=== PATIENT | female | born 1940 | race Caucasian/White ===

== ENCOUNTER → 2018-07-26 10:59 | Outpatient (CLI) | payer MEDICARE, BC, SELFPAY | PROVIDERS: Family Provider Internal Medicine; PCP Internal Medicine; Visit Provider Internal Medicine | DX: Z12.31 Encounter for screening mammogram for malignant neoplasm of breast (principal); Z78.0 Asymptomatic menopausal state; M85.80 Other specified disorders of bone density and structure, unspecified site; Z80.3 Family history of malignant neoplasm of breast | CPT/HCPCS: 77063; 77067; 77080 ==

== ENCOUNTER → 2019-07-30 10:52 | Outpatient (CLI) | payer MEDICARE, BC, SELFPAY ==
--- NOTE | 2019-07-30 10:59 | BI_ITS ---
MAMMOGRAPHY - BILATERAL SCREENING REASON FOR EXAM: Female, 78 years old. Routine annual screening examination. PERTINENT HISTORY: Aunt with breast cancer. TECHNIQUE: Digital bilateral breast francine (3D mammographic acquisition) in the CC and MLO projections. 2-D mediolateral oblique (MLO) and craniocaudad (CC) views of both breasts were obtained. CAD: Full Field Digital Mammography with Computer Added Detection was performed. COMPARISON: Comparison is made with prior study dated July 26, 2018 and July 21, 2017. FINDINGS: Breast Composition: The breasts are heterogeneously dense, which may obscure small masses. There are no dominant masses or suspicious calcifications. Stable small bilateral axillary lymph nodes. No other significant abnormalities are identified. There has been no significant change since the prior study. BI/SCREEN MAMM (CAD) W/FRANCINE BILAT IMPRESSION: Stable bilateral screening mammogram. Yearly follow-up mammogram recommended. (A) ASSESSMENT CATEGORY: BIRADS Category 2: Benign. A letter regarding these results will be sent to the patient by the facility within 30 days. Approximately 10% of breast cancers are not detected by mammography. A normal mammogram should not delay biopsy of a clinically suspicious abnormality. [id number] Electronically Signed: Chauncey Robertson, at 12:32 EDT , Service support ,
== END ==
PROVIDERS: Family Provider Internal Medicine; PCP Internal Medicine; Referring Provider Internal Medicine; Visit Provider Internal Medicine
DX: Z12.31 Encounter for screening mammogram for malignant neoplasm of breast (principal); Z80.3 Family history of malignant neoplasm of breast
CPT/HCPCS: 77063; 77067

== ENCOUNTER → 2020-08-04 10:53 | Outpatient (CLI) | payer MEDICARE, BC, SELFPAY ==
--- NOTE | 2020-08-04 10:56 | BI_ITS ---
MAMMOGRAPHY - BILATERAL SCREENING REASON FOR EXAM: Female, 79 years old. Routine annual screening examination. PERTINENT HISTORY: Aunt with breast cancer. TECHNIQUE: Digital bilateral breast francine (3D mammographic acquisition) in the CC and MLO projections. 2-D mediolateral oblique (MLO) and craniocaudad (CC) views of both breasts were obtained. CAD: Full Field Digital Mammography with Computer Added Detection was performed. COMPARISON: Comparison is made with prior examination of 07/30/2019 and 07/26/2018. FINDINGS: Breast Composition: The breasts are heterogeneously dense, which may obscure small masses. There are no dominant masses or suspicious calcifications. Stable benign-appearing bilateral axillary lymph nodes. No other significant abnormalities are identified. There has been no significant change since the prior study. BI/SCREEN MAMM (CAD) W/FRANCINE BILAT IMPRESSION: Stable bilateral screening mammogram. Yearly follow-up mammogram recommended. (A) ASSESSMENT CATEGORY: BIRADS Category 2: Benign. A letter regarding these results will be sent to the patient by the facility within 30 days. Approximately 10% of breast cancers are not detected by mammography. A normal mammogram should not delay biopsy of a clinically suspicious abnormality. [id number] Electronically Signed: Chauncey Robertson, at 12:29 EDT , Service support ,
== END ==
PROVIDERS: PCP Internal Medicine; Referring Provider Clinical Nurse Specialist; Visit Provider Clinical Nurse Specialist
DX: Z12.31 Encounter for screening mammogram for malignant neoplasm of breast (principal); Z80.3 Family history of malignant neoplasm of breast
CPT/HCPCS: 77063; 77067

== ENCOUNTER → 2021-08-13 14:54 | Outpatient (CLI) | payer MEDICARE, BC, SELFPAY ==
--- NOTE | 2021-08-13 14:58 | BI_ITS ---
MAMMOGRAPHY - BILATERAL SCREENING REASON FOR EXAM: Female, 80 years old. Routine annual screening examination. PERTINENT HISTORY: Aunt with breast cancer. TECHNIQUE: Digital bilateral breast francine (3D mammographic acquisition) in the CC and MLO projections. 2-D mediolateral oblique (MLO) and craniocaudad (CC) views of both breasts were obtained. CAD: Full Field Digital Mammography with Computer Added Detection was performed. COMPARISON: Comparison is made with prior study 08/04/2020 and 07/30/2019. FINDINGS: Breast Composition: The breasts are heterogeneously dense, which may obscure small masses. There are no dominant masses or suspicious calcifications. Stable small benign-appearing bilateral axillary lymph nodes. No other significant abnormalities are identified. There has been no significant change since the prior study. BI/SCRN MAMM (CAD)W/FRANCINE BILAT IMPRESSION: Stable bilateral screening mammogram. Yearly follow-up mammogram recommended. (A) ASSESSMENT CATEGORY: BIRADS Category 2: Benign. A letter regarding these results will be sent to the patient by the facility within 30 days. Approximately 10% of breast cancers are not detected by mammography. A normal mammogram should not delay biopsy of a clinically suspicious abnormality. [id number] Electronically Signed: Chauncey Robertson MD at 8:49 EDT , Service support ,
--- NOTE | 2021-08-13 15:06 | BD_ITS ---
STUDY: DUAL ENERGY X-RAY ABSORPTIOMETRY / DXA REASON FOR EXAM: Female, 80 years old. M85.89. The patient is postmenopausal. TECHNIQUE: Bone Mineral Density (BMD) measurements of lumbar spine and bilateral hips were obtained. COMPARISON: Comparison is made with prior study 07/26/2018. FINDINGS: Lumbar Spine (L1-L4): g/cm2 (0.913) / T-score (-1.2) / Z-score (1.4) Findings are suggestive of osteopenia with a low fracture risk. Left Femur Total: g/cm2 (0.902) / T-score (-0.3) / Z-score (1.7) Left Femoral Neck: g/cm2 (0.728) / T-score (-1.1) / Z-score (1.2) Right Femur Total: g/cm2 (0.885) / T-score (-0.5) / Z-score (1.5) Right Femoral Neck: g/cm2 (0.68) / T-score (-1.5) / Z-score (0.7) The T-Scores on the most recent prior examination were: Lumbar Spine (L1-L4): There has been worsening of bone density since the previous examination. Left Femur Total: which represents a worsening of 5.7%. Right Femur Total: which represents a worsening of 0.1%. BD/Dexa Bone Density Study IMPRESSION: The patient is considered osteopenic as outlined below according to World Miller Organization (WHO) criteria with a moderate fracture risk. There has been worsening of bone density since the previous examination. Reference Information: The T-score is the number of standard deviations above or below the standard which is normal for young adults at their peak bone mineral density. The World Health Organization (WHO) interprets the T-scores as follows: Above -1 Normal bone density Between -1 and -2.5 Osteopenia Equal to / or below -2.5 Osteoporosis As a practical clinical guideline, osteopenia may be graded as follows: Mild -1 through -1.5 Moderate -1.6 through -2.0 Severe -2.1 through -2.4 The Z-score is the number of standard deviations above or below age-matched controls. A Z-score of less than -1.5 would be considered abnormal. References: 1. NIH Osteoporosis and Related Bone Diseases www osteo.org 2. International Society for Clinical Densitometry www iscd.org 3. National Osteoporosis Foundation www nof.org Electronically Signed: Chauncey Robertson MD at 14:40 EDT , Service support ,
== END ==
PROVIDERS: PCP Internal Medicine; Referring Provider Internal Medicine; Visit Provider Internal Medicine
DX: Z12.31 Encounter for screening mammogram for malignant neoplasm of breast (principal); M85.80 Other specified disorders of bone density and structure, unspecified site; M85.88 Other specified disorders of bone density and structure, other site; Z78.0 Asymptomatic menopausal state; Z80.3 Family history of malignant neoplasm of breast
CPT/HCPCS: 77063; 77067; 77080

== ENCOUNTER → 2022-08-16 | Outpatient (CLI) | payer MEDICARE, BC, SELFPAY ==
--- NOTE | 2022-08-16 12:07 | BI_ITS ---
MAMMOGRAPHY - BILATERAL SCREENING REASON FOR EXAM: Female, 81 years old. Routine annual screening examination. PERTINENT HISTORY: Aunt with breast cancer. TECHNIQUE: Digital bilateral breast francine (3D mammographic acquisition) in the CC and MLO projections. 2-D mediolateral oblique (MLO) and craniocaudad (CC) views of both breasts were obtained. CAD: Full Field Digital Mammography with Computer Added Detection was performed. COMPARISON: Comparison is made with prior study dated 08/13/2021 and 08/04/2020. FINDINGS: Breast Composition: The breasts are heterogeneously dense, which may obscure small masses. There are no dominant masses or suspicious calcifications. Stable small benign-appearing bilateral axillary lymph nodes. No other significant abnormalities are identified. There has been no significant change since the prior study. BI/SCRN MAMM (CAD)W/FRANCINE BILAT IMPRESSION: Stable bilateral screening mammogram. Yearly follow-up mammogram recommended. (A) ASSESSMENT CATEGORY: BIRADS Category 2: Benign. A letter regarding these results will be sent to the patient by the facility within 30 days. Approximately 10% of breast cancers are not detected by mammography. A normal mammogram should not delay biopsy of a clinically suspicious abnormality. [id number] Electronically Signed: Chauncey Robertson MD at 13:39 EDT ,
== END | disposition home or self-care (01) ==
LOC: OPBI 12:04
PROVIDERS: PCP Internal Medicine; Visit Provider Internal Medicine
DX: Z12.31 Encounter for screening mammogram for malignant neoplasm of breast (principal)
CPT/HCPCS: 77063; 77067

== ENCOUNTER 2023-06-13 05:49 | Day surgery (SDC) | payer MEDICARE, BC, SELFPAY ==
[2023-06-13 06:34] VITALS: BP 125/71; PULSE 90; RESP 16; TEMP 37.2; O2SAT 98; BMI 25.2
--- NOTE | 2023-06-13 06:52 | PCM.HP.BLA ---
History and Physical Date of Admission: 06/13/23 Intake Vital Signs 05/26/2308:55 05/31/2308:27 Height 5 ft 4.5 in 5 ft 5 in Weight: 154 lb 6 oz BMI 25.7 BP 134/77 H Blood Pressure Location Rt brachial Position Sitting Respiration 18 Pulse 102 H Pulse Source Monitor Temp 97.3 F L Temp Source Temporal Pulse Oximetry (%) 97 Oxygen Delivery Method room air Intake Visit Reasons: PORT PLACEMENT Chief Complaint: Port Placement Nursing Assoc Required: No Accompanied by: Is patient in pain?: No Allergies No Known Allergies Allergy (Verified 05/31/23 09:08) Medications albuterol sulfate 90 mcg/actuation aerosol inhaler 1 inh inhalation ONCE 04/27/23 [History Confirmed 05/31/23] atorvastatin 20 mg tablet 20 mg PO DAILY 04/27/23 [History Confirmed 05/31/23] cholecalciferol (vitamin D3) 25 mcg (1,000 unit) capsule 25 mcg PO DAILY 04/27/23 [History Confirmed 05/31/23] cyclosporine 0.05 % eye drops in a dropperette 1 drp ophthalmic (eye) Q12H 04/27/23 [History Confirmed 05/31/23] levothyroxine 112 mcg capsule 112 mcg PO DAILY 04/27/23 [History Confirmed 05/31/23] sertraline 50 mg tablet 50 mg PO DAILY 04/27/23 [History Confirmed 05/31/23] ondansetron HCl 4 mg tablet 4 mg PO Q6H 05/05/23 [History Confirmed 05/31/23] acetaminophen 500 mg tablet (Tylenol Extra Strength) 500 mg PO Q6H PRN 05/26/23 [History Confirmed 05/31/23] apixaban 2.5 mg tablet (Eliquis) 2.5 mg PO BID 05/26/23 [History Confirmed 05/31/23] cannabidiol 100 mg/mL oral solution 750 mg PO BID PRN 05/26/23 [History Confirmed 05/31/23] docusate sodium 100 mg capsule (Colace) 100 mg PO BID 05/26/23 [History Confirmed 05/31/23] polyethylene glycol 3350 17 gram oral powder packet (Miralax) 17 g PO DAILY 05/26/23 [History Confirmed 05/31/23] lidocaine-prilocaine 2.5 %-2.5 % topical cream 1 applic topical ONCE PRN port access 30 days #30 grams 05/31/23 [Rx Confirmed 05/31/23] [facility], [facility] Medical History (Updated 05/31/23 @ 11:[address] Pravin Vuong MD) Anxiety state Asthma Basal cell carcinoma Benign neoplasm of colon Chronic kidney disease, stage 3 unspecified Decreased appetite Encounter for education External hemorrhoids Hemorrhage of gastrointestinal tract, unspecified Hypercholesteremia Hypothyroidism IBS (irritable bowel syndrome) Internal hemorrhoids Surgical History H/O total hysterectomy S/P appendectomy Family History Mother Asthma Parkinsons diseaseFather Prostate cancer Social History Smoking Status: Never smoker alcohol intake: current alcohol intake frequency: a few times a week substance use type: does not use HPI HPI HPI: 82-year-old female here for ovarian cancer need for vascular access port. She had surgery she was placed on Eliquis after surgery for prophylaxis. This Eliquis is ending on the . ROS General General: Yes weight change and fatigue; No appetite, colon cancer, breast cancer or weakness HEENT HEENT: Yes swollen glands; No difficulty swallowing, eye injury, eye surgery or hoarseness Endo Endocrine: Yes thyroid disease; No diabetes mellitus, thyroid cancer, Hair loss, heat intolerance or cold intolerance Skin Skin: No rash or changing moles Breast Breast: No left breast lump, right breast lump, nipple discharge, breast pain, abnormal mammogram, abnormal US or breast enlargement Musc Musculoskeletal: No back problems, arthritis, rheumatoid arthritis, gout or joint pain Cardio Cardiovascular: No murmur, pacemaker, heart disease, atrial fibrillation, high blood pressure, heart attack, heart stent, palpitations, shortness of breat with exertion or chest pain Psych Psychiatric: No depression, anxiety or hearing voices Resp Respiratory: No shortness of breath, No sleep apnea, No cough, No COPD, Yes asthma, No emphysema and No wheezing Gastro Gastrointestinal: No abdominal pain, No nausea or vomiting, No diarrhea, No constipation, No blood in stool, No acid reflux, Yes hemorrhoids, No ulcers, No gallbladder problem and No black,tarry stools Guy Hematologic: Yes blood thinners, No blood disorders, No bleeding, No anemia and No blood clots Neuro Neurologic: No system reviewed and no additional complaints, except as documented, No as per HPI, No abnormal gait, No abnormal hearing, No abnormal movements, No abnormal speech, No behavioral changes, No burning sensations, No confusion, No convulsions, No disequilibrium, No dizziness, No localized weakness, No frequent falls, No headache(s), No lack of coordination, No loss of vision, No memory loss, No numbness, No other visual disturbances, No radicular pain, No restless legs, No sensory deficit, No syncope, No tingling, No tremor(s), No weakness and No other Exam Const General: cooperative Orientation: alert and oriented x3 HENMT Head: normal to inspection Neck Neck: normal visual inspection and full ROM Chest Chest palpation & inspection: normal inspection of the chest Resp Effort & Inspection: normal respiratory effort Auscultation: clear to auscultation bilaterally Cardio Rate: regular rate Rhythm: regular rhythm GI Inspection: non-distended Palpation: soft and nontender Skin General: no rashes or lesions noted Neuro General: patient alert and patient oriented x3 Extrem General: full ROM Psych Appearance: grossly normal Mental Status: mental status grossly normal Assessment and Plan Assessment and Plan (1) 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 Discussed stage IV disease, treatment with chemotherapy Taxol plus carboplatin weekly x24 weeks/6 cycles. 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 Pt has had a hysterectomy on 11/07/1982. Could be Ovarian cancer. Biopsy of L supraclavicular nodes showed metastatic adenocarcinoma. [id number] on 05/05/2023. (5) Encounter for insertion of venous access port: Status: Acute Plan I discussed right chest port placement with the patient in detail. I discussed the risks including but not limited to bleeding, infection, pneumothorax, line infection or DVT. The patient is stopping her Eliquis on 06/08. I am out most of next week. She will receive her first chemotherapy treatment by peripheral access and I will have her scheduled for June 13 replacement and I will leave the port accessed for her next treatment on the . Pravin Vuong MD Pager: [facility] [address] [place] [address], [address] [place] [address] Office: I have examined the patient and the H&P has been reviewed. There are no clinical changes since date of exam.
[2023-06-13] MEDS: Lactated Ringers 1,000 ML 15 ML IV (06:53)
[2023-06-13] MEDS: Cefazolin 2 GM in 0.9% Normal Saline 100 ML IV (07:28)
[2023-06-13] MEDS: Bupivacaine Mpf 0.5% 30 ML VIAL (07:41)
[2023-06-13] MEDS: Lidocaine 1% /Epi 1:100 (20ml) 20 ML Vial (07:41)
[2023-06-13 08:05] VITALS: BP 123/61; BP 125/71; PULSE 83; RESP 18; TEMP 36.6; O2SAT 100
[2023-06-13 08:10] VITALS: BP 120/60; BP 125/71; PULSE 82; RESP 18; O2SAT 95
--- NOTE | 2023-06-13 08:10 | OP.PCM_ITS ---
Report of Operation Date of Procedure: 06/13/23 Pre-Operative Diagnosis: Ovarian cancer, need for vascular access for chemother apy Post-Operative Diagnosis: Same Surgery/Procedure Performed:: Ultrasound and fluoroscopy guided right chest port placement utilizing right IJ Type of Anesthesia: Local MAC Specimen's removed: None Estimated Blood Loss (mL): 5 Description of Procedure: After obtaining informed consent patient was brought back to the operating room MAC anesthesia was induced and the right chest and neck were prepped in normal sterile fashion. Ultrasound was used to evaluate both IJs and the right IJ was selected. Next, using a needle, the right IJ was accessed and a guidewire was passed on into the superior vena cava under fluoroscopy guidance. A small incision was made over the puncture site and the dilator introducer was placed over the guidewire. Next this was capped and the pocket was made for the port. 1% lidocaine with epinephrine was injected in the proposed port site. An incision was made with scalpel. Electrocautery was used to make a pocket under the skin and subcutaneous tissue. Hemostasis was obtained. Next, the catheter was tunneled up to the neck incision site and placed through the introducer. The peel-away introducer was removed and the position of the catheter was confirmed on fluoroscopy. Next, the catheter was trimmed and attached to the port with the locking device. Interrupted 2-0 Vicryl sutures were used to anchor the port to the chest wall and then the port was placed inside the pocket. The pocket was then flushed with saline and the port irrigated with saline. There was good blood return and the port flushed easily. Next, heparin was injected into the port. The skin was closed with subcutaneous interrupted 3-0 Vicryl sutures. A single 3-0 Vicryl sutures placed under the skin at the neck incision site. Steri-Strips were placed as well as op sites. Patient tolerated procedure well, was taken to PACU in stable condition. Chest x-ray will be obtained. Grafts/Implants Used: 8 [place] [employer] Admit VTE Documentation VTE Mechan Device Prophylaxis: SCD's
--- NOTE | 2023-06-13 08:12 | DCINST_ITS ---
Discharge Instructions Diet Discharge Diet: Light diet - advance as tolerated Activity Discharge Activity: Return to Normal Activity and May Shower (with your bandage in place in 1 to 2 days after surgery. DO NOT SHOWER WHEN YOUR PORT IS ACCESSED.) Dressing / Incision Call your doctor if your incision/area has: Continuous Slow Oozing, Sudden Increased Bleeding, Increased Pain/ Swelling, Increased Redness and Foul Smelling Discharge Call your doctor if you observe: Fever of 101 or Higher Remove Dressing in: 2 days Cleanse incision/area with: Soap & Water Follow Up Care Please Follow Up With: Pravin Vuong MD When: As needed at [phone] Test Results: Test results from this visit will be discussed in further detail at your follow- up appointment, if applicable. Discharge Plan Admission Attending Provider: Pravin Vuong Primary Care Provider: Bere Mancini Discharge Orders/Prescriptions Prescriptions: No Action albuterol sulfate 90 mcg/actuation HFA aerosol inhaler 1 inh inhalation ONCE atorvastatin 20 mg tablet 20 mg PO DAILY cyclosporine 0.05 % dropperette 1 drp ophthalmic (eye) Q12H levothyroxine 112 mcg capsule 112 mcg PO DAILY sertraline 50 mg tablet 50 mg PO DAILY ondansetron HCl 4 mg tablet 4 mg PO Q6H docusate sodium [Colace] 100 mg capsule 100 mg PO BID polyethylene glycol 3350 [Miralax] 17 gram powder in packet 17 g PO DAILY lidocaine-prilocaine 2.5-2.5 % cream 1 applic topical ONCE PRN (Reason: port access) 30 Days Qty: 30 2RF Other Ambulatory Orders: Basic Metabolic Profile (BMP) (Routine) Timeframe: 20230607 Facility: [facility] - Location: Laboratory, [facility] Ordered By: Dr. Pravin Vuong CBC W/Diff, Automated (Routine) Timeframe: 20230607 Facility: [facility] - Location: Laboratory, [facility] Ordered By: Dr. Pravin Vuong Referrals / Follow Up: Bere Mancini MD [Primary Care Provider] - Disposition Disposition (needs filled in before D/C Order can be placed): Home, Self Care
[2023-06-13 08:16] VITALS: BP 120/60; BP 125/71; PULSE 80; RESP 16; O2SAT 95
[2023-06-13 08:22] VITALS: BP 119/63; BP 125/71; PULSE 88; RESP 16; TEMP 37; O2SAT 95
--- NOTE | 2023-06-13 08:25 | RAD_ITS ---
INDICATION: line placement -- in pacu EXAMINATION/TECHNIQUE: X-RAY - XR Chest 1 View COMPARISON: FINDINGS: LINES/DEVICES: A right-sided MediPort is noted with tip projecting in the SVC. LUNGS: There is a small left effusion and questionable airspace disease at the left lung base. Otherwise no evidence for consolidation, edema or effusion. No pneumothorax. MEDIASTINUM AND CARDIOVASCULAR STRUCTURES: Cardiac silhouette not enlarged. Central airways and mediastinal contour are unremarkable. BONES AND SOFT TISSUES: Unremarkable. RAD/CXR for Line Placement IMPRESSION: A right-sided MediPort is noted with tip projecting in the SVC. There is a small left effusion and questionable airspace disease at the left lung base. Electronically Signed: Rylan Victor, at 8:35 EDT ,
[2023-06-13 09:02] VITALS: BP 125/71
== END 2023-06-13 09:09 | disposition home or self-care (01) ==
LOC: SDC 05:50 → AC 05:50
PROVIDERS: PCP Internal Medicine; Referring Provider Surgery; Visit Provider Surgery
PROC: (CPT 36561; principal; 2023-06-13 07:15)
DX: Z45.2 Encounter for adjustment and management of vascular access device (principal); C77.2 Secondary and unspecified malignant neoplasm of intra-abdominal lymph nodes; C77.0 Secondary and unspecified malignant neoplasm of lymph nodes of head, face and neck; C56.2 Malignant neoplasm of left ovary; N18.30 Chronic kidney disease, stage 3 unspecified; E78.00 Pure hypercholesterolemia, unspecified; K58.9 Irritable bowel syndrome, unspecified; F41.1 Generalized anxiety disorder; N89.8 Other specified noninflammatory disorders of vagina; Z79.01 Long term (current) use of anticoagulants; Z79.890 Hormone replacement therapy; Z79.899 Other long term (current) drug therapy
CPT/HCPCS: 36561; 00532; 71045; 77001; J7120; C1788; J2405

== ENCOUNTER → 2023-07-13 | Outpatient (CLI) | payer MEDICARE, BC, SELFPAY ==
--- NOTE | 2023-07-13 10:50 | CT_ITS ---
EXAM: CT NECK WITH INTRAVENOUS CONTRAST CLINICAL INDICATION: ASSESS TREATMENT RESPONSE TECHNIQUE: Helically acquired images were obtained of the neck with intravenous contrast. This CT exam was performed using one or more of the following dose reduction techniques: automated exposure control, adjustment of the mA and/or kV according to patient size, and/or use of iterative reconstruction technique. CONTRAST: IV 100mL Isovue-300 COMPARISON: No relevant prior studies available. FINDINGS: NASOPHARYNX: Normal. SUPRAHYOID NECK: Normal. Oropharynx, oral cavity, parapharyngeal space and retropharyngeal space are unremarkable. INFRAHYOID NECK: Normal. The larynx, hypopharynx and supraglottis are unremarkable. SUBMANDIBULAR/PAROTID GLANDS: Salivary glands are normal in size. THYROID: No thyroid tissue identified. BONES/JOINTS: No suspicious lytic or blastic abnormality. SOFT TISSUES: Normal. VASCULATURE: No acute findings. LYMPH NODES: Enlarged left-sided cervical lymph nodes noted involving levels 4 and 5 measuring up to 3.5 cm in diameter consistent with metastatic disease. LUNG APICES: Unremarkable as visualized. TUBES, LINES AND DEVICES: Right IJ infusion catheter in place. CT/Soft Tissue Neck WITH Contrast IMPRESSION: Enlarged left level 4 and 5 cervical lymph nodes consistent with metastatic disease. Electronically Signed: Donta Luevano MD at 13:30 EDT ,
--- NOTE | 2023-07-13 10:50 | CT_ITS ---
EXAM: CT CHEST, ABDOMEN AND PELVIS WITH INTRAVENOUS CONTRAST CLINICAL INDICATION: ASSESS TREATMENT RESPONSE TECHNIQUE: Helically acquired images were obtained of the chest, abdomen and pelvis with intravenous contrast. This CT exam was performed using one or more of the following dose reduction techniques: automated exposure control, adjustment of the mA and/or kV according to patient size, and/or use of iterative reconstruction technique. CONTRAST: IV 100mL Isovue-300 COMPARISON: PET CT scan 05/10/2023, CT abdomen and pelvis 04/07/2023 FINDINGS: CHEST: LUNGS AND PLEURAL SPACES: Normal. No mass. No consolidation or edema. No pleural effusion or thickening. No pneumothorax. HEART: Normal. Heart size is normal. No pericardial effusion. MEDIASTINUM: Normal. No mediastinal or hilar adenopathy. Esophagus is unremarkable. No hiatal hernia. THYROID: Normal. No thyroid nodules or calcification. ABDOMEN: LIVER: Normal. Homogeneous. No focal mass. PANCREAS: Normal. No focal cystic or solid mass. SPLEEN: Normal. Normal size without focal cystic or solid mass. ADRENALS: Normal. No nodules. KIDNEYS AND URETERS: Normal. Normal renal size and position. No hydronephrosis. STOMACH AND BOWEL: Interval partial resection of the sigmoid colon. No evidence of recurrent tumor at the surgical site. PELVIS: APPENDIX: No evidence of acute appendicitis. BLADDER: Normal. REPRODUCTIVE: Uterus is absent. CHEST, ABDOMEN and PELVIS: INTRAPERITONEAL SPACE: Normal. No ascites or other fluid collection. No free air. BONES/JOINTS: No suspicious lytic or blastic abnormality. L1 vertebral body lesion consistent with hemangioma. SOFT TISSUES: Normal. No discrete abdominal or pelvic wall hernia. VASCULATURE: Normal. Aorta is non-dilated. No aortic dissection. No obvious central pulmonary embolism although this study was not performed with the pulmonary embolism protocol. LYMPH NODES: Partially visualized lobulated 3.8 cm mass within the left side of the neck. Additional 3.1 x 1.8 cm abnormal lymph node posterior to the left clavicle consistent with metastatic disease. Multiple enlarged retroperitoneal lymph nodes noted within the upper abdomen adjacent to the inferior vena cava and IVC and extending into the small bowel mesentery. Additional necrotic lymphadenopathy along the right external iliac region measuring 5 cm in maximum diameter. Lymphadenopathy increased in size from prior study. TUBES, LINES AND DEVICES: Right internal jugular central venous catheter tip in the distal superior vena cava. CT/CT Chest, Abd, Pel w/Contrast IMPRESSION: 1. Enlarged level 5 cervical lymph nodes and enlarging retroperitoneal and pelvic lymph nodes consistent with metastatic disease. 2. Interval resection of the mass involving the sigmoid:. 3. No acute cardiopulmonary abnormality. 4. No evidence of metastases. Electronically Signed: Donta Luevano MD at 12:13 EDT ,
[2023-07-13] MEDS: 0.9 % NaCl (Sterile) Posiflush 10 mL IV (11:00)
== END | disposition home or self-care (01) ==
LOC: CT 10:37
PROVIDERS: PCP Internal Medicine; Referring Provider Internal Medicine Medical Oncology; Visit Provider Internal Medicine Medical Oncology
DX: R59.0 Localized enlarged lymph nodes (principal)
CPT/HCPCS: 70491; 71260; 74177; Q9967; A4216

== ENCOUNTER → 2023-10-05 | Outpatient (CLI) | payer MEDICARE, BC, SELFPAY ==
--- NOTE | 2023-10-05 14:16 | CT_ITS ---
EXAM: CT CHEST, ABDOMEN AND PELVIS WITH INTRAVENOUS CONTRAST CLINICAL INDICATION: ASSESSING TREATMENT RESPONSE, IV ONLY TECHNIQUE: Helically acquired images were obtained of the chest, abdomen and pelvis with intravenous contrast. This CT exam was performed using one or more of the following dose reduction techniques: automated exposure control, adjustment of the mA and/or kV according to patient size, and/or use of iterative reconstruction technique. CONTRAST: 100 cc of Isovue-300 IV. RADIATION DOSE: CTDIvol = 10.46 mGy, DLP = 1145.01 mGy-cm COMPARISON: 07/13/2023. FINDINGS: CHEST: LUNGS AND PLEURAL SPACES: Unremarkable. No mass. No consolidation or edema. No pleural effusion or thickening. No pneumothorax. HEART: Unremarkable. Heart size is normal. No pericardial effusion. MEDIASTINUM: Unremarkable. No mediastinal or hilar adenopathy. Esophagus is unremarkable. No hiatal hernia. THYROID: Unremarkable. No thyroid lesions. ABDOMEN: LIVER: Unremarkable. Homogeneous. No focal mass. GALLBLADDER AND BILE DUCTS: Unremarkable. No calcified gallstones. No gallbladder distention or wall edema. No intra- or extrahepatic biliary ductal dilation. PANCREAS: Unremarkable. No focal cystic or solid mass. SPLEEN: Unremarkable. Normal size without focal cystic or solid mass. ADRENALS: Unremarkable. No nodules. KIDNEYS AND URETERS: Unremarkable. Normal renal size and position. No hydronephrosis. STOMACH AND BOWEL: Partial sigmoidectomy. No stomach or bowel distention. PELVIS: APPENDIX: No evidence of acute appendicitis. BLADDER: Unremarkable. REPRODUCTIVE: Unremarkable as visualized. No mass. CHEST, ABDOMEN and PELVIS: INTRAPERITONEAL SPACE: Unremarkable. No ascites or other fluid collection. No free air. BONES/JOINTS: Unremarkable. No suspicious lytic or blastic abnormality. SOFT TISSUES: Unremarkable. No discrete abdominal or pelvic wall hernia. VASCULATURE: Unremarkable. Aorta is non-dilated. No aortic dissection. No obvious central pulmonary embolism although this study was not performed with the pulmonary embolism protocol. LYMPH NODES: Decreased size of the previously noted retrocrural lymph nodes. The largest now measures 5 mm. Marked decrease in the previously noted retroperitoneal adenopathy. The largest now measures 1.4 cm. Marked decrease in size of the previously noted left-sided level IV and V lymph nodes. Previously noted right external iliac lymph nodes appear diffusely necrotic and are moderately smaller compared with the previous exam. CT/CT Chest, Abd, Pel w/Contrast IMPRESSION: 1. Marked decrease in size of the previously noted left-sided level IV and V lymph nodes. See the report of the CT scan of the neck. 2. Significant decreased size in the previously noted retroperitoneal, retrocrural, and right external iliac adenopathy. 3. Previously noted right external iliac lymph nodes appear diffusely necrotic and are moderately smaller compared with the previous exam. 4. Partial sigmoidectomy. Electronically Signed: Bassam Reeves MD at 7:06 EST ,
--- NOTE | 2023-10-05 14:16 | CT_ITS ---
EXAM: CT NECK WITH INTRAVENOUS CONTRAST CLINICAL INDICATION: ASSESSING TREATMENT RESPONSE TECHNIQUE: Helically acquired images were obtained of the neck with intravenous contrast. This CT exam was performed using one or more of the following dose reduction techniques: automated exposure control, adjustment of the mA and/or kV according to patient size, and/or use of iterative reconstruction technique. CONTRAST: 100 cc of Isovue-300 IV. RADIATION DOSE: CTDIvol = 10.46 mGy, DLP = 1145.01 mGy-cm COMPARISON: 07/13/2023. FINDINGS: NASOPHARYNX: Unremarkable. SUPRAHYOID NECK: Unremarkable. Oropharynx, oral cavity, parapharyngeal space and retropharyngeal space are unremarkable. INFRAHYOID NECK: Unremarkable. The larynx, hypopharynx and supraglottis are unremarkable. SUBMANDIBULAR/PAROTID GLANDS: Unremarkable. Glands are normal in size. THYROID: Unremarkable. No enlarged or calcified nodules. BONES/JOINTS: No acute fracture. SOFT TISSUES: Unremarkable. VASCULATURE: No acute findings. LYMPH NODES: Previously noted multiple enlarged left-sided level IV and V lymph nodes are now all decreased in size with the largest measuring less than 1 cm. There is a new level 5 lymph node just below the level of the hyoid bone best seen on image 45 of series 3 that measures 1.1 cm maximum dimension with low density centrally. LUNG APICES: Unremarkable as visualized. CT/Soft Tissue Neck WITH Contrast IMPRESSION: Significant decrease in size of all of the previously noted left-sided level IV and V lymph nodes the largest now measuring less than a centimeter. There is a new 1.1 cm level V lymph node on the left at about the level of the hyoid bone that measures 1.1 cm and demonstrates low-density centrally that may be due to necrosis. Electronically Signed: Bassam Reeves MD at 6:56 EST ,
[2023-10-05] MEDS: 0.9 % NaCl (Sterile) Posiflush 10 mL IV (14:40)
== END | disposition home or self-care (01) ==
LOC: CT 14:14
PROVIDERS: PCP Internal Medicine; Referring Provider Internal Medicine Medical Oncology; Visit Provider Internal Medicine Medical Oncology
DX: C77.2 Secondary and unspecified malignant neoplasm of intra-abdominal lymph nodes (principal); C56.2 Malignant neoplasm of left ovary
CPT/HCPCS: 70491; 71260; 74177; Q9967; A4216

== ENCOUNTER 2023-10-23 09:20 | Emergency (ER) | payer MEDICARE, BC, SELFPAY ==
[2023-10-23 09:21] VITALS: BP 130/82; PULSE 104; RESP 16; TEMP 36.4; O2SAT 97; BMI 24.7
--- NOTE | 2023-10-23 10:08 | EDS_ITS ---
HPI HPI - GI History of Present Illness Chief Complaint: Abd Pain Informant: patient Abdominal Pain/Flank Pain Onset: Yesterday Context: Gradual Onset Timing: Continuous Quality: Sharp Location: LUQ Worsened by: Nothing Relieved by: - (Oxycodone) Nausea/Vomiting/Emesis GI Symptom: Positive for Nausea and Vomiting Quality: Positive for Nonbilious; Negative for Blood streaks, Coffee ground or Hematemesis Diarrhea/Melena/Hematochezia GI Symptom: Negative for Diarrhea, Melena or Hematochezia Associated Symptoms Associated Symptoms: Negative for Dysuria, Frequency or Hematuria Narrative Narrative: Presents with abdominal pain that began yesterday. Patient states it is gr adually gotten worse. Patient states it is mainly over the left upper abdomen. Patient describes her pain as sharp. Patient states she took 1 dose of oxycodone 5 mg last evening which seemed to help with the pain. Patient admits to some nausea and vomiting. Patient denies any hematemesis or coffee-ground emesis. Patient denies any diarrhea, melena, or hematochezia. Patient denies any dysuria, frequency, or hematuria. Patient admits to some subjective chills but denies any fevers. Patient has a history of ovarian cancer and was referred to the emergency department for possible bowel obstruction. [facility] Medical History Anxiety state Asthma Basal cell carcinoma Benign neoplasm of colon Cancer Constipation Decreased appetite Dehydration Drug induced neutropenia Encounter for chemotherapy management Encounter for education External hemorrhoids Hemorrhage of gastrointestinal tract, unspecified High cholesterol Hypercholesteremia Hypothyroidism IBS (irritable bowel syndrome) Internal hemorrhoids Non-smoker Thyroid disease Wears glasses Home Medications albuterol sulfate 90 mcg/actuation aerosol inhaler 1 inh inhalation ONCE 04/27/23 [History Last Taken Unknown] atorvastatin 20 mg tablet 20 mg PO DAILY 04/27/23 [History Last Taken Unknown] cyclosporine 0.05 % eye drops in a dropperette 1 drp ophthalmic (eye) Q12H 04/27/23 [History Last Taken Unknown] levothyroxine 112 mcg capsule 112 mcg PO DAILY 04/27/23 [History Last Taken Unknown] ondansetron HCl 4 mg tablet 4 mg PO Q6H 05/05/23 [History Last Taken Unknown] docusate sodium 100 mg capsule (Colace) 100 mg PO BID 05/26/23 [History Last Taken Unknown] polyethylene glycol 3350 17 gram oral powder packet (Miralax) 17 g PO DAILY 05/26/23 [History Last Taken Unknown] lidocaine-prilocaine 2.5 %-2.5 % topical cream 1 applic topical ONCE PRN port access 30 days #30 grams 05/31/23 [Rx Last Taken Unknown] sertraline 50 mg tablet 50 mg PO DAILY #30 tabs 10/17/23 [Rx Last Taken Unknown] Allergy/AdvReac Type Severity Reaction Status Date / Time No Known Allergies Allergy Verified 10/12/23 09:32 Family History Mother Asthma Parkinsons disease Father Prostate cancer Surgical History H/O total hysterectomy History of bowel resection History of cardiac catheterization S/P appendectomy Social History Smoking Status: Never smoker alcohol intake: current alcohol intake frequency: a few times a week substance use type: does not use ROS ROS ED Constitutional Constitutional ED: Reports chills and subjective; Denies fever(s) Eyes Eyes: Denies blurry vision or change in vision ENT ENT ED: Denies rhinorrhea or sore throat Cardiovascular Cardiovascular: Denies chest pain or palpitations Respiratory/Chest Respiratory/Chest: Denies cough or dyspnea Gastrointestinal Gastrointestinal: Reports abdominal pain, nausea and vomiting; Denies diarrhea or melena Genitourinary Genitourinary ED: Denies dysuria or hematuria Musculoskeletal Musculoskeletal: Denies back pain or neck pain Integumentary Denies abscess or rash Neurologic Neurologic: Denies headache(s) or weakness Allergic/Immunologic Allergic/Immunologic ED: Denies mouth swelling or urticaria EXAM Physical Exam Const Vital Signs: 10/23/23 09:21 Temperature 97.6 F L Temperature Source Temporal Pulse Rate 104 H Respiratory Rate 16 Blood Pressure 130/82 H Blood Pressure Mean 98 Pulse Ox 97 Oxygen Delivery Method Room Air Positive well nourished and well developed General Appearance ED: well developed and NAD HEENT Reports moist mucous membranes Neck supple and no JVD Resp normal respiratory effort and clear to auscultation bilaterally Cardio regular rate and regular rhythm GI Palpation: soft and tender epigastric and LUQ; Negative for guarding or rebound tenderness present Neuro CN's II-XII intact bilaterally, moves all extremities and no sensory deficits noted Sensorium / Orientation: alert Motor Exam: strength 5/5 throughout Psych mental status grossly normal and thought process normal MDM MDM MDM Narrative Medical decision making narrative: Differential diagnosis includes bowel obstruction, perforation, peptic ulcer disease, gastritis, pancreatitis, cholecystitis, cholelithiasis, pyelonephritis, and urinary tract infection. CBC will be obtained to assess for leukocytosis and anemia. Comprehensive metabolic profile will be obtained to assess for hepatic function, renal function, and electrolyte abnormality. Urinalysis will be obtained to assess for urinary tract infection and hematuria. CT scan of the abdomen pelvis will be obtained to assess for bowel obstruction, perforation, and pancreatitis. Lipase will be obtained to assess for pancreatitis. Lab Data Attestation: I reviewed the patient's lab results. Lab results narrative: CBC was reviewed. White blood cell count was elevated at 48.7. Hemoglobin was 7.9 and hematocrit was 23.8. Platelets were 232. Comprehensive metabolic profile was reviewed. BUN was slightly elevated at 27. The remainder was within normal limits. Lipase was reviewed and was normal at 22. Urinalysis was reviewed. There is no evidence of urinary tract infection or hematuria. Labs: Laboratory Results - last 24 hr 10/23/23 10/23/23 10:34 11:02 WBC 48.7 H* RBC 2.44 L Hgb 7.9 L Hct 23.8 L MCV 97.5 MCH 32.4 H MCHC 33.2 D RDW Std Deviation 69.1 H RDW Coeff of Camryn 19.8 H Plt Count 232 MPV 9.3 Neut % (Auto) Not Reportable Absolute Neuts (auto) 47.8 H Absolute Lymphs (auto) 0.49 L Total Counted 100 Neutrophils % (Manual) 98 H Lymphocytes % (Manual) 1 L Metamyelocytes % 1 Diff Path Review May foll Platelet Estimate ADEQUATE Anisocytosis 2+ Microcytosis 1+ Macrocytosis 1+ Sodium 138 Potassium 3.8 Chloride 105 Carbon Dioxide 27.0 Anion Gap 6 BUN 27 H Creatinine 0.83 Estim Creat Clear Calc 48.64 Est GFR (MDRD) Af Amer 85 Est GFR (MDRD) Non-Af 71 BUN/Creatinine Ratio 32.6 H Glucose 99 Calcium 8.7 Total Bilirubin 0.50 Direct Bilirubin 0.16 AST 16 ALT 27 Alkaline Phosphatase 194 H Total Protein 7.0 Albumin 3.1 L Globulin 3.9 Lipase 22 Urine Color Yellow Urine Clarity Clear Urine pH 8.0 Ur Specific [place] 1.010 Urine Protein 15 H Urine Glucose (UA) Normal Urine Ketones Negative Urine Occult Blood 10 H Urine Nitrite Negative Urine Bilirubin Negative Urine Urobilinogen Normal Ur Leukocyte Esterase Negative Urine RBC 0 SEEN Urine WBC 0 SEEN Ur Squamous Epith Cells 0 SEEN Urine Bacteria 0 SEEN Urine Mucus 0 SEEN Radiography Diagnostic Testing: Clinical Impression(s) from Imaging Studies Abdomen/Pelvis CT 10/23/23 10:28 IMPRESSION: Stable post surgical changes from prior sigmoid colon resection. Stable periaortic and pelvic lymphadenopathy. No bowel obstruction or inflammation. Constipation. Small amount of free fluid. No free air or fluid collection Electronically Signed: Kaleb Hoffman MD at 13:07 EST , CT scan of the abdomen and pelvis was obtained. There is no evidence of bowel obstruction. There is no free air or free fluid. There is constipation. This was interpreted by the radiologist and was also independently reviewed by myself. Treatment and Re-Evaluation :: Patient was given IV fluids, morphine, and Zofran. Patient was advised of her findings. Case was discussed with Sandra Koo from [place] [facility]. She stated that the patient received an injection recently which would cause her white blood cell count to be increased. She recommended starting the patient on Reglan. She also recommended continuing her laxatives as needed. Patient was instructed to follow-up with oncology in 3 to 5 days. Patient understood and was agreeable with the plan. All questions were answered. Discharge Plan Triage Chief Complaint: Abd Pain ED Provider: Layton Rodriguez Dx/Rx/DC Orders Clinical Impression: Constipation, Ovarian cancer on left Instructions: ED Constipation (Adult) Prescriptions: No Action albuterol sulfate 90 mcg/actuation HFA aerosol inhaler 1 inh inhalation ONCE atorvastatin 20 mg tablet 20 mg PO DAILY cyclosporine 0.05 % dropperette 1 drp ophthalmic (eye) Q12H levothyroxine 112 mcg capsule 112 mcg PO DAILY ondansetron HCl 4 mg tablet 4 mg PO Q6H docusate sodium [Colace] 100 mg capsule 100 mg PO BID polyethylene glycol 3350 [Miralax] 17 gram powder in packet 17 g PO DAILY lidocaine-prilocaine 2.5-2.5 % cream 1 applic topical ONCE PRN (Reason: port access) 30 Days Qty: 30 2RF sertraline 50 mg tablet 50 mg PO DAILY Qty: 30 2RF Primary Care Provider: Vi Pelayo Referrals: Vi Pelayo MD [Primary Care Provider] - Perfecto Heath MD [Med Staff - Active Staff] - 3-5 Days Activity Restrictions/Additional Instructions: Since you are on sertraline, you cannot take the Reglan that was recommended. Continue your other laxatives as prescribed. Disposition Disposition: Home, Self Care
--- NOTE | 2023-10-23 10:28 | CT_ITS ---
STUDY: CT ABDOMEN AND PELVIS WITH CONTRAST REASON FOR EXAM: Female, 82 years old. Abdominal pain RADIATION DOSAGE (If Supplied By Facility): CTDIvol = ( 21 ) mGy, DLP = ( 990 ) mGycm TECHNIQUE: Transaxial images were obtained through the abdomen and pelvis with oral contrast. 100 ml of Isovue-370 contrast was administered. Sagittal and coronal images were reconstructed. Individualized dose optimization techniques were used for this CT. COMPARISON: Prior study dated: 10/05/2023 FINDINGS: LOWER THORAX: The visualized lung bases are clear. The visualized portions of the heart and pericardium are within normal limits. GALLBLADDER / BILE DUCTS: There are no calcified gallstones present. There is no intrahepatic biliary duct dilatation. The common bile duct is normal in caliber. There are no calcified ductal stones. LIVER: The liver is within normal limits. There are no suspicious hepatic lesions. SPLEEN: The spleen is normal in size. PANCREAS: The pancreas is within normal limits. ADRENAL GLANDS: The adrenal glands are within normal limits. KIDNEYS / BLADDER: There are no renal or ureteral stones. There is no hydronephrosis. There are no focal renal lesions. The urinary bladder is partially distended and appears grossly unremarkable. STOMACH / BOWEL: Normal visualized stomach. There is no bowel obstruction or inflammation. There is a large amount of stool in the colon, consistent with constipation. There are stable postsurgical changes from prior sigmoid colon resection. The appendix is not visualized, but there are no findings to suggest acute appendicitis. PERITONEUM/RETROPERITONEUM: There is a small amount of free fluid. There is no free air or fluid collection. There is no abnormal soft tissue mass identified. There is stable periaortic and pelvic lymphadenopathy. VESSELS: The aorta is normal in caliber. The IVC is unremarkable. BONES: There are no destructive osseous lesions. SOFT TISSUES: The visualized soft tissues are within normal limits. CT/Abdomen/Pelvis WITH Contrast IMPRESSION: Stable post surgical changes from prior sigmoid colon resection. Stable periaortic and pelvic lymphadenopathy. No bowel obstruction or inflammation. Constipation. Small amount of free fluid. No free air or fluid collection Electronically Signed: Kaleb Hoffman MD at 13:07 EST ,
[2023-10-23] MEDS: 0.9% Normal Saline (1000mL) 1,000 ML 1000 ML IV (10:43)
[2023-10-23 10:47] LABS: Hematocrit 23.8 % (37-47); Hemoglobin 7.9 g/dL (12.0-15.0); Mean Corp Hgb Conc 33.2 g/dL (32-36); Mean Corpuscular Hgb 32.4 pg (27.0-32.0); Mean Corpuscular Volume 97.5 fL (81-99); Mean Platelet Vol. 9.3 fl (6.2-12.0); POSITIVE COUNT YES; POSITIVE DIFFERENTIAL YES; POSITIVE MORPHOLOGY YES; Platelet Count 232 K/mm3 (150-450); RBC Distribution Width CV 19.8 % (11.6-14.6); RBC Distribution Width SD 69.1 fl (35.1-43.9); Red Blood Count 2.44 M/mm3 (4.2-5.4)
[2023-10-23 10:53] LABS: Differential Indicated MANUAL DIFF; White Blood Count 48.7 K/mm3 (4.4-11.0)
[2023-10-23 11:01] LABS: AST(SGOT) 16 U/L (15-37); Alanine Aminotransfer ALT/SGPT 27 U/L (13-56); Albumin, Serum 3.1 g/dL (3.2-5.0); Alkaline Phosphatase 194 U/L (45-117); Anion Gap 6 (5-15); BUN 27 mg/dL (7-18); BUN/Creat Ratio 32.6 RATIO (10-20); Bilirubin, Direct 0.16 mg/dL (0.00-0.30); Calcium,Total 8.7 mg/dL (8.5-10.1); Chloride 105 mmol/L (98-107); Creatinine, Serum 0.83 mg/dL (0.55-1.02); EST Glomerular Filtration Rate 71 mL/min (>60); Est Glom Filt Rate - Afr Amer 85 mL/min (>60); Estimated Creatinine Clearance 48.64 ml/min; Globulin 3.9 g/dL (2.2-4.2); Glucose 99 mg/dL (74-106); Lipase 22 U/L (13-75); Potassium 3.8 mmol/L (3.5-5.1); Sodium Level 138 mmol/L (136-145)
[2023-10-23 11:03] LABS: Anisocytosis 2+; Lymphocyte 1 % (19-41); Macrocytosis 1+; Metamyelocyte 1 % (0-1); Microcytosis 1+; Neutrophil-Segmented 98 % (47-70); Platelet Estimate ADEQUATE (ADEQ); Total Cells Counted 100 (MANUAL DIFF)
[2023-10-23 11:04] LABS: Absolute Lymphocyte Count 0.49 X10^3/uL (0.83-4.51); Absolute Neutrophil Count 47.8 X10^3/uL (2.0-7.7)
[2023-10-23 11:07] LABS: Bacteria 0 SEEN /hpf (None Seen); Mucous, Urine 0 SEEN /hpf (<or=2+); Red Blood Cells-Urine 0 SEEN /hpf (0-5); Squamous Epithelial Cells - UA 0 SEEN /hpf (5-10); White Blood Cells 0 SEEN /hpf (0-5)
[2023-10-23 11:09] LABS: Color, Urine Yellow (Yellow); Glucose, Dipstick Normal (Normal); Ketone-Dipstick Negative (Negative); Leukocyte Esterase-Dipstick Negative /ul (Negative); Nitrite-Dipstick Negative (Negative); Occult Blood-Urine 10 /ul (Negative); Protein-Dipstick 15 mg/dl (Negative); Urine Bilirubin Dipstick Negative (Negative); Urine Clarity Clear (Clear); Urine Urobilinogen Normal (Normal)
[2023-10-23 15:34] VITALS: BP 132/83; PULSE 78; RESP 18; O2SAT 98
[2023-10-24 13:42] LABS: Pathologist Review Reviewed
== END 2023-10-23 15:38 | disposition home or self-care (01) ==
PROVIDERS: Emergency Provider Emergency Medicine; PCP Internal Medicine; Visit Provider Emergency Medicine
DX: K59.00 Constipation, unspecified (principal); C56.2 Malignant neoplasm of left ovary; R10.12 Left upper quadrant pain; R11.2 Nausea with vomiting, unspecified; E78.00 Pure hypercholesterolemia, unspecified; E03.9 Hypothyroidism, unspecified; Z79.890 Hormone replacement therapy; Z79.899 Other long term (current) drug therapy
CPT/HCPCS: 36591; 74177; 80048; 80076; 81001; 83690; 85025; 96360; 96361; 99284; J7030; A4216; J2405

== ENCOUNTER → 2023-11-24 | Outpatient (CLI) | payer MEDICARE, BC, SELFPAY ==
--- NOTE | 2023-11-24 07:15 | CT_ITS ---
EXAM: CT NECK WITH INTRAVENOUS CONTRAST CLINICAL INDICATION: RESTAGING METASTATIC OVARIAN CA TECHNIQUE: Helically acquired images were obtained of the neck with intravenous contrast. This CT exam was performed using one or more of the following dose reduction techniques: automated exposure control, adjustment of the mA and/or kV according to patient size, and/or use of iterative reconstruction technique. CONTRAST: IV 100mL Isovue-370 COMPARISON: 10/05/2023 FINDINGS: NASOPHARYNX: Unremarkable. SUPRAHYOID NECK: Unremarkable. Oropharynx, oral cavity, parapharyngeal space and retropharyngeal space are unremarkable. INFRAHYOID NECK: Unremarkable. The larynx, hypopharynx and supraglottis are unremarkable. SUBMANDIBULAR/PAROTID GLANDS: Unremarkable. Glands are normal in size. THYROID: Unremarkable. No enlarged or calcified nodules. BONES/JOINTS: No acute fracture. SOFT TISSUES: Unremarkable. VASCULATURE: No acute findings. LYMPH NODES: Previously described level 5 lymph node lobe at the level of the hyoid bone on the left is not as well-defined on today''s exam. This node measures roughly 1.4 x 1.3 cm on today''s exam and extends to the skin surface. LUNG APICES: Unremarkable as visualized. CT/Soft Tissue Neck WITH Contrast IMPRESSION: Mild interval increase in size of a left-sided level 5 lymph node which is less well-defined on today''s exam. If indicated further evaluation with PET CT scan may be beneficial. Electronically Signed: Hipolito Murrieta MD at 16:58 EST ,
--- NOTE | 2023-11-24 07:15 | CT_ITS ---
STUDY: CT CHEST, ABDOMEN T PELVIS WITH CONTRAST REASON FOR EXAM: Female, 82 years old. RESTAGING-LEFT OVARIAN CA RADIATION DOSAGE (If Supplied By Facility): CTDIvol = ( 11.54 ) mGy, DLP = ( 1288.07 ) mGycm TECHNIQUE: Transaxial imaging was performed following intravenous administration of IV 100mL Isovue-370. Individualized dose optimization techniques were used for this CT. COMPARISON: October 23, 2023 FINDINGS: CHEST The lungs are normal. There is no demonstrated pleural abnormality. Normal heart and pericardium. Normal mediastinum. Normal hilar regions. Normal unenhanced pulmonary arteries. Minor atherosclerotic changes of the aorta without evidence for aneurysm Dorsal spine demonstrates moderate spondylosis ABDOMEN Normal liver. Normal gallbladder and extrahepatic biliary system. Normal spleen. Normal pancreas. Normal bilateral adrenal glands. Normal right kidney. Normal left kidney. Normal visualized stomach. Normal small intestine. Diffuse fecal retention noted within the colon.. No evidence for acute appendicitis Normal abdominal aorta. Normal inferior vena cava. There is a small periaortic node at the level of the left renal hilum demonstrating central low attenuation likely metastatic.. Normal abdominal wall. Normal osseous structures. PELVIS Normal urinary bladder. Postsurgical changes status post BETO/BSO Normal visualized small intestine. Postsurgical change status post prior colonic resection There is no pelvic fluid. There are enlarged right external iliac nodes measuring 2.44 x 2.03 cm and 2.16 x 2.07 cm demonstrating central low attenuation likely metastatic Normal visualized pelvic arteries. Normal abdominal wall. Lumbar spine demonstrates degenerative change CT/CT Chest, Abd, Pel w/Contrast IMPRESSION: No significant abnormalities within the thoracic cavity without evidence for metastatic disease. No evidence for hepatic metastases Possibly metastatic left periaortic and right external iliac adenopathy noted on prior exam. Status post BETO/BSO and resection of the sigmoid colon Electronically Signed: Juanpablo Alvarado MD at 21:16 EST ,
--- OUTSIDE RECORDS SUMMARY | 2023-11-24 07:27 | XMS RPT_ITS | CCD ---
Author Name Unknown Address [address] [place] [address] Organization [facility] Care Team Providers Care Condominium Manager Name Role Phone IRIS LACKEY Unavailable Unavailable LEVON LACKEYNETH Unavailable Unavailable LEVON LACKEYNETH Unavailable Unavailable IMCA Unavailable Unavailable IRIS LACKEY E Unavailable Unavailable IRIS LACKEY E Unavailable Unavailable Jonathan Vanegas MD Primary Care Provider Jonathan Vanegas MD Primary Care Provider GUILHERME FELDER, DR CASTILLO Primary Care Physician [phone] Bonifacio Higgins MD Unavailable [phone] GUILHERME FELDER, DR CASTILLO Primary Care Unavailable Slava PEDRO DO Attending Unavail able GUILHERME FELDER, DR CASTILLO Primary Care Unavailable Slava PEDRO DO Attending Unavail able GUILHERME FELDER, DR CASTILLO Primary Care Unavailable ADELA MARISCAL MD Consulting Unavailable Slava PEDRO DO Attending Unavail able CHERYL ANTONIO MD Consulting Unavailable Slava PEDRO DO Attending Unavail able GUILHERME FELDER, DR CASTILLO Primary Care Unavailable TALAMPAS, JONATHAN Jona Primary Care Unavailable TANG, JOLIE Referring Unavailable TALAMPAS, JONATHAN D Primary Care Unavailable TANG, JOLIE Referring Unavailable TANG, JOLIE Attending Unavailable TALAMPAS, JONATHAN D Primary Care Unavailable RENATO AYALA Attending Unavailable TALAMPAS, JONATHAN D Primary Care Unavailable TANG, JOLIE Referring Unavailable TALAMPAS, JONAHTAN D Primary Care Unavailable TALAMPAS, JONATHAN D Attending Unavailable TANG, JOLIE Referring Unavailable TALAMPAS, JONATHAN D Primary Care Unavailable TALAMPAS, JONATHAN D Primary Care Unavailable TALAMPAS, JONATHAN D Referring Unavailable TANG, JOLIE Referring Unavailable TALAMPAS, JONATHAN D Attending Unavailable TALAMPAS, JONATHAN D Primary Care Unavailable TANG, JOLIE Referring Unavailable TALAMPAS, JONATHAN D Primary Care Unavailable TALAMPAS, JONATHAN D Primary Care Unavailable TANG, JOLIE Referring Unavailable TALAMPAS, JONATHAN D Primary Care Unavailable TANG, JOLIE Referring Unavailable TALAMPAS, JONATHAN D Primary Care Unavailable TANG, JOLIE Referring Unavailable TALAMPAS, JONATHAN D Primary Care Unavailable TANG, JOLIE Referring Unavailable TANG, JOLIE Attending Unavailable TALAMPAS, JONATHAN D Primary Care Unavailable TANG, JOLIE Referring Unavailable BONIFACIO HIGGINS Attending Unavailable BONIFACIO HIGGINS Attending Unavailable PERFECTO HEATH. Referring Unavailable BONIFACIO HIGGINS Attending Unavailable BONIFACIO HIGGINS Admitting Unavailable Allergies Allergy Classification Reported Allergen(s) Allergy Type Date of Onset Reaction(s) Facility (19 sources) Cat; Translations: [CATS] Propensity to adverse reactions (disorder) 7 [facility] Repository (19 sources) Dog; Translations: [DOGS] Propensity to adverse reactions (disorder) 7 [facility] Repository (19 sources) Grass pollen; Translations: [GRASS POLLEN] Propensity to adverse reactions (disorder) 7 Unknown [facility] Repository (19 sources) House dust mite; Translations: [DUST MITES] Propensity to adverse reactions (disorder) 7 [facility] Repository (19 sources) mold extract; Translations: [MOLD] Drug Allergy 7 Unknown [facility] Repository (3 sources) OTHER; Translations: [OTHER] Propensity to adverse reactions (disorder) 7 [facility] Repository (16 sources) environmental [Other] Propensity to adverse reactions 7 [facility] Work Phone: (17 sources) House Dust Mite; Translations: [HOUSE DUST MITE] Drug Allergy 1 Unknown [facility] Work Phone: (9 sources) Cat Hair Extract Drug Allergy 7 [facility] (9 sources) Grass pollen Drug Allergy 7 [facility] (9 sources) House dust mite Propensity to adverse reactions 7 [facility] (9 sources) Dog Epithelium Drug Intolerance 7 [facility] Medications Current Medications Medication Drug Class(es) Dates Sig (Normalized) Sig (Original) 0.4 ML cyclosporine 0.5 MG/ML Ophthalmic Suspension [Restasis] (2 sources) Start: 04-19-2023 take 1 dose into the eye(s) twice daily Restasis 0.05% ophthalmic emulsion Dose = 1 drop(s), Eyes, both, BID, # 30 EA, 0 Refill(s) Start Date: 04/19/23 Status: Ordered acetaminophen 500 mg oral tablet (7 sources) Start: 05-16-2023 End: 05-26-2023 take 2 tablets by mouth every eight hours as needed for pain acetaminophen (Tylenol Extra Strength) 500 MG tablet Take 2 tablets (1,000 mg) by mouth every 8 hours as needed for mild pain (1-3) for up to 10 days. 60 tablet 0 05/16/2023 05/26/2023 Active Completed/Discontinued Medications Medication Drug Class(es) Dates Sig (Normalized) Sig (Original) atorvastatin 20 mg oral tablet (20 sources) HMG-CoA Reductase Inhibitor Start: 06-21-2022 End: 05-23-2023 take 1 tablet by mouth once daily atorvastatin (LIPITOR) 20 mg tablet Indications: Hypercholesteremia Take 1 tablet by mouth once daily. 90 tablet 3 06/21/2022 05/23/2023 Discontinued Problems Active Problems Problem Classification Problem Date Documented Da te Episodic/Chronic Abdominal pain (3 sources) Left upper quadrant pain; Translations: [Left upper quadrant pain] Onset: 04-07-2023 Episodic Anxiety disorders (19 sources) Anxiety state; Translations: [Generalized anxiety disorder] Onset: 05-12-2007 09-09-2016 Chronic Asthma (2 sources) Asthma 04-19-2023 Chronic Chronic kidney disease (12 sources) Chronic kidney disease stage 3; Translations: [Stage 3 chronic kidney disease, unspecified whether stage 3a or 3b CKD (HCC)] Onset: 04-04-2023 Chronic Chronic kidney disease (1 source) Chronic kidney disease; Translations: [Stage 3 chronic kidney disease, unspecified whether stage 3a or 3b CKD (HCC)] Onset: 04-04-2023 Coronary atherosclerosis and other heart disease (2 sources) 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; Translations: [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] Onset: 09-01-2017 Chronic Diseases of white blood cells (3 sources) Leukocytosis; Translations: [Elevated white blood cell count, unspecified] Onset: 04-04-2023 Chronic Disorders of lipid metabolism (20 sources) Hypercholesterolemia; Translations: [Pure hypercholesterolemia, unspecified] Onset: 11-17-2021 11-16-2021 Chronic Diverticulosis and diverticulitis (2 sources) Diverticulosis of colon 04-19-2023 Chronic Essential hypertension (1 source) Essential (primary) hypertension; Translations: [Essential (primary) hypertension] Onset: 09-01-2017 Chronic Fever of unknown origin (4 sources) Fever; Translations: [Fever, unspecified] Onset: 03-31-2023 Episodic Lymphadenitis (4 sources) Lymphadenopathy of head AND/OR neck; Translations: [Localized enlarged lymph nodes] Onset: 04-12-2023 04-19-2023 Episodic Malaise and fatigue (2 sources) Malaise; Translations: [Other malaise] Onset: 03-31-2023 Episodic Nausea and vomiting (4 sources) Nausea; Translations: [Nausea] Onset: 03-31-2023 Episodic Neoplasms of unspecified nature or uncertain behavior (1 source) Thrombocytosis; Translations: [Thrombocytosis] Onset: 04-04-2023 Chronic Neoplasms of unspecified nature or uncertain behavior (2 sources) Thrombocytosis; Translations: [Thrombocytosis] Episodic Nutritional deficiencies (2 sources) Vitamin D deficiency; Translations: [Vitamin D deficiency, unspecified] Onset: 04-04-2023 Chronic Nutritional deficiencies (1 source) Iron deficiency; Translations: [Iron deficiency] Onset: 04-04-2023 Episodic Other connective tissue disease (2 sources) Contracture of palmar fascia 04-19-2023 Episodic Other female genital disorders (2 sources) Rectovaginal fistula; 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] 05-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 Chronic Other female genital disorders (3 sources) Fistula of vagina to large intestine; 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] Onset: 05-09-2023 05-16-2023 Chronic Other female genital disorders (1 source) Fistula of vagina to large intestine; 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] Onset: 05-09-2023 Chronic Other gastrointestinal disorders (18 sources) Irritable bowel syndrome; Translations: [Irritable bowel syndrome without diarrhea] Onset: 05-12-2007 05-12-2007 Chronic Other gastrointestinal disorders (2 sources) Pelvic mass; Translations: [Intra-abdominal and pelvic swelling, mass and lump, unspecified site] 05-09-2023 Episodic Other liver diseases (2 sources) Alkaline phosphatase raised; Translations: [Abnormal levels of other serum enzymes] Episodic Other liver diseases (1 source) Abnormal levels of other serum enzymes; Translations: [Elevated alkaline phosphatase level] Onset: 04-05-2023 Episodic Other nervous system disorders (3 sources) Postoperative pain ; Translations: [Other acute postprocedural pain] Onset: 04-22-2023 Episodic Other screening for suspected conditions (not mental disorders or infectious disease) (15 sources) Radiology result abnormal; Translations: [Abnormal findings on diagnostic imaging of other specified body structures] Onset: 05-11-2023 05-09-2023 Chronic Other screening for suspected conditions (not mental disorders or infectious disease) (5 sources) Patient encounter status; Translations: [Encounter for screening mammogram for malignant neoplasm of breast] Onset: 04-01-2023 Episodic Other skin disorders (3 sources) Finding of neck region; Translations: [Localized swelling, mass and lump, neck] Episodic Other skin disorders (1 source) Localized swelling, mass and lump, neck; Translations: [Localized swelling, mass and lump, neck] Onset: 03-31-2023 Episodic Residual codes; unclassified (1 source) Postmenopausal state; Translations: [Asymptomatic menopausal state] Episodic Residual codes; unclassified (2 sources) Menopause present; Translations: [Asymptomatic menopausal state] Episodic Residual codes; unclassified (2 sources) Asymptomatic menopausal state; Translations: [Asymptomatic menopausal state] Onset: 04-04-2023 Episodic Residual codes; unclassified (1 source) Postoperative state; Translations: [Other specified postprocedural states] 05-25-2023 Episodic Thyroid disorders (20 sources) Hypothyroidism; Translations: [Hypothyroidism, unspecified] Onset: 05-12-2007 05-09-2018 Chronic Unclassified (1 source) Unknown / UNK(Unknown) Onset: 09-01-2017 Unclassified (2 sources) Basal cell carcinoma 04-20-2023 Past or Other Problems Problem Classification Problem Date Documented Da te Episodic/Chronic Diabetes mellitus without complication (1 source) Hyperglycemia, unspecified; Translations: [Hyperglycemia, unspecified] Onset: 7 Episodic Gastrointestinal hemorrhage (16 sources) Gastrointestinal hemorrhage; Translations: [Gastrointestinal hemorrhage, unspecified] Onset: 7 07-12-2007 Episodic Hemorrhoids (20 sources) Internal hemorrhoids; Translations: [Other hemorrhoids] Onset: 7 05-09-2018 Episodic Immunizations and screening for infectious disease (1 source) Encounter for screening for other viral diseases; Translations: [Need for hepatitis C screening test] Onset: 2 Episodic Nonspecific chest pain (1 source) Chest pain, unspecified; Translations: [Chest pain, unspecified] Onset: 7 Episodic Other and unspecified benign neoplasm (18 sources) Benign neoplasm of colon; Translations: [Benign neoplasm of colon, unspecified] Onset: 7 05-12-2007 Episodic Other gastrointestinal disorders (3 sources) Finding of abdominopelvic segment of trunk; Translations: [Intra-abdominal and pelvic swelling, mass and lump, unspecified site] Onset: 3 05-16-2023 Episodic Other gastrointestinal disorders (2 sources) Intra-abdominal and pelvic swelling, mass and lump, unspecified site; Translations: [Pelvic mass] Onset: 3 Episodic Other nervous system disorders (2 sources) Other acute postprocedural pain; Translations: [Other acute postprocedural pain] Onset: 3 Episodic Residual codes; unclassified (2 sources) Other specified postprocedural states; Translations: [Other specified postprocedural states] Onset: 3 Episodic Results Test Name Value Interpretation Reference Range Facil ity Vital Signs Date Time Vital Sign Value Performing Clinician Margy larson 05-25-2023 13:33-0400 Body height 165.1 cm Bonifacio Higgins MD Work Phone: [facility] 05-25-2023 13:33-0400 Body mass index (BMI) [Ratio] 25.79 kg/m2 Bonifacio Higgins MD Work Phone: [facility] 05-25-2023 13:33-0400 Body weight 70.31 kg Bonifacio Higgins MD Work Phone: [facility] 05-25-2023 13:33-0400 Diastolic blood pressure 70 mm[Hg] Bonifacio Higgins MD Work Phone: [facility] 05-25-2023 13:33-0400 Heart rate 101 /min Bonifacio Higgins MD Work Phone: [facility] 05-25-2023 13:33-0400 Systolic blood pressure 108 mm[Hg] Bonifacio Higgins MD Work Phone: [facility] 05-16-2023 06:10-0400 Body temperature 97.5 [degF] Bonifacio Higgins MD Work Phone: [facility] 05-16-2023 06:10-0400 Diastolic blood pressure 79 mm[Hg] Bonifacio Higgins MD Work Phone: [facility] 05-16-2023 06:10-0400 Heart rate 89 /min Bonifacio Higgins MD Work Phone: [facility] 05-16-2023 06:10-0400 Respiratory rate 18 /min Bonifacio Higgins MD Work Phone: [facility] 05-16-2023 06:10-0400 SaO2% (BldA) [Mass fraction] 93 % Bonifacio Higgins MD Work Phone: [facility] 05-16-2023 06:10-0400 Systolic blood pressure 160 mm[Hg] Bonifacio Higgins MD Work Phone: [facility] 05-09-2023 12:58-0400 Body height 165.1 cm Bonifacio Higgins MD Work Phone: [facility] 05-09-2023 12:58-0400 Body mass index (BMI) [Ratio] 26.63 kg/m2 Bonifacio Higgins MD Work Phone: [facility] 05-09-2023 12:58-0400 Body weight 72.58 kg Bonifacio Higgins MD Work Phone: [facility] 05-09-2023 12:58-0400 Diastolic blood pressure 69 mm[Hg] Bonifacio Higgins MD Work Phone: [facility] 05-09-2023 12:58-0400 Heart rate 94 /min Bonifacio Higgins MD Work Phone: [facility] 05-09-2023 12:58-0400 Systolic blood pressure 111 mm[Hg] Bonifacio Higgins MD Work Phone: [facility] 04-22-2023 16:39-0400 Body temperature 97.16 [degF] NA STJERNHOLM DO [facility] 04-22-2023 16:39-0400 Diastolic Blood Pressure Non-Invasive 83 1 NA STJERNHOLM DO [facility] 04-22-2023 16:39-0400 Heart rate 80 /min NA STJERNHOLM DO [facility] 04-22-2023 16:39-0400 Respiratory rate 16 /min NA STJERNHOLM DO [facility] 04-22-2023 16:39-0400 Systolic Blood Pressure Non-Invasive 154 1 NA STJERNHOLM DO [facility] 04-22-2023 15:30-0400 Body temperature 97.16 [degF] NA STJERNHOLM DO [facility] 04-22-2023 15:30-0400 Diastolic Blood Pressure Non-Invasive 85 1 NA STJERNHOLM DO [facility] 04-22-2023 15:30-0400 Heart rate 84 /min NA STJERNHOLM DO [facility] 04-22-2023 15:30-0400 Respiratory rate 16 /min NA STJERNHOLM DO [facility] 04-22-2023 15:30-0400 Systolic Blood Pressure Non-Invasive 150 1 NA STJERNHOLM DO [facility] 04-22-2023 15:15-0400 Body temperature 97.52 [degF] NA STJERNHOLM DO [address] [place] [address] 04-22-2023 15:15-0400 Diastolic Blood Pressure Non-Invasive 73 1 NA STJERNHOLM DO [address] [place] [address] 04-22-2023 15:15-0400 Heart rate 83 /min NA STJERNHOLM DO [address] [place] [address] 04-22-2023 15:15-0400 Mean blood pressure 94 mm[Hg] NA STJERNHOLM DO [address] 04-22-2023 15:15-0400 Respiratory rate 16 /min NA STJERNHOLM DO [address] [place] [address] 04-22-2023 15:15-0400 Systolic Blood Pressure Non-Invasive 139 1 NA STJERNHOLM DO [address] [place] [address] 04-22-2023 14:57-0400 Heart rate 82 /min NA STJERNHOLM DO [address] [place] [address] 04-22-2023 14:57-0400 Mean blood pressure 95 mm[Hg] NA STJERNHOLM DO [address] [place] [address] 04-22-2023 14:42-0400 Heart rate 79 /min NA STJERNHOLM DO [address] [place] [address] 04-22-2023 14:42-0400 Mean blood pressure 94 mm[Hg] NA STJERNHOLM DO [address] [place] [address] 04-22-2023 14:26-0400 Body temperature 97.16 [degF] NA STJERNHOLM DO [address] [place] [address] 04-22-2023 14:20-0400 Respiratory Rate - Anes 0 br/min NA STJERNHOLM DO [address] [place] [address] 04-22-2023 14:15-0400 Body temperature 97.81 [degF] NA STJERNHOLM DO [address] [place] [address] 04-22-2023 14:15-0400 Respiratory Rate - Anes 17 br/min NA STJERNHOLM DO [address] [place] [address] 04-22-2023 14:10-0400 Body temperature 97.54 [degF] NA STJERNHOLM DO [address] [place] [address] 04-22-2023 14:10-0400 Respiratory Rate - Anes 19 br/min NA STJERNHOLM DO [address] [place] [address] 04-22-2023 14:05-0400 Body temperature 97.41 [degF] NA STJERNHOLM DO [address] [place] [address] 04-22-2023 10:50-0400 Body height 162.6 cm NA STJERNHOLM DO [address] [place] [address] 04-22-2023 10:50-0400 Body weight 73.1 kg NA STJERNHOLM DO [address] [place] [address] 04-22-2023 10:50-0400 Heart rate 101 /min NA STJERNHOLM DO [address] [place] [address] 04-20-2023 10:57-0400 Blood Pressure Cuff Size NA STJERNHOLM DO [address] [place] [address] 04-20-2023 10:57-0400 Blood Pressure Location NA STJERNHOLM DO [address] [place] [address] 04-20-2023 10:57-0400 Blood Pressure Method NA STJERNHOLM DO [address] [place] [address] 04-20-2023 10:57-0400 Body height 162.6 cm NA STJERNHOLM DO [address] [place] [address] 04-20-2023 10:57-0400 Body temperature 98.6 [degF] NA STJERNHOLM DO [address] [place] [address] 04-20-2023 10:57-0400 Body weight 75.1 kg NA STJERNHOLM DO [facility] 04-20-2023 10:57-0400 Body weight 28.41 kg/m2 NA STJERNHOLM DO [facility] 04-20-2023 10:57-0400 Diastolic Blood Pressure Non-Invasive 76 1 NA STJERNHOLM DO [facility] 04-20-2023 10:57-0400 Heart rate 98 /min NA STJERNHOLM DO [facility] 04-20-2023 10:57-0400 Systolic Blood Pressure Non-Invasive 127 1 NA STJERNHOLM DO [facility] 04-04-2023 13:35-0400 Body weight 75.3 kg Jolie Tang DRY PRESS OPERATOR HELPER.QA INTERN Work Phone: [facility] 04-04-2023 13:35-0400 Diastolic blood pressure 80 mm[Hg] Jolie Tang DRY PRESS OPERATOR HELPER.QA INTERN Work Phone: [facility] 04-04-2023 13:35-0400 Heart rate 106 /min Jolie Tang DRY PRESS OPERATOR HELPER.QA INTERN Work Phone: [facility] 04-04-2023 13:35-0400 Respiratory rate 16 /min Jolie Tang DRY PRESS OPERATOR HELPER.QA INTERN Work Phone: [facility] 04-04-2023 13:35-0400 Systolic blood pressure 136 mm[Hg] Jolie Tang DRY PRESS OPERATOR HELPER.QA INTERN Work Phone: [facility] 03-29-2023 09:58-0400 Body temperature 97.2 [degF] Jolie Tang DRY PRESS OPERATOR HELPER.QA INTERN Work Phone: [facility] 03-29-2023 09:58-0400 Body weight 75.3 kg Jolie Tang DRY PRESS OPERATOR HELPER.QA INTERN Work Phone: [facility] 03-29-2023 09:58-0400 Diastolic blood pressure 72 mm[Hg] Jolie Tang DRY PRESS OPERATOR HELPER.QA INTERN Work Phone: [facility] 03-29-2023 09:58-0400 Heart rate 105 /min Jolie Tang DRY PRESS OPERATOR HELPER.QA INTERN Work Phone: [facility] 03-29-2023 09:58-0400 Respiratory rate 16 /min Jolie Tang DRY PRESS OPERATOR HELPER.QA INTERN Work Phone: [facility] 03-29-2023 09:58-0400 SaO2% (BldA) [Mass fraction] 96 % Jolie Tang DRY PRESS OPERATOR HELPER.QA INTERN Work Phone: [facility] 03-29-2023 09:58-0400 Systolic blood pressure 132 mm[Hg] Jolie Tang DRY PRESS OPERATOR HELPER.QA INTERN Work Phone: [facility] Encounters Encounter Date Encounter Type Care Provider Facility Start: 07-11-2023 Telephone encounter Bonifacio Higgins MD Work Phone: [facility] Start: 05-25-2023 End: 05-25-2023 ambulatory BONIFACIO HIGGINS [facility] Start: 05-25-2023 End: 05-25-2023 Postop follow up visit related to original px Bonifacio Higgins MD Work Phone: [facility]nec[facility] Procedures Date Procedure Procedure Detail Performing Clinician Start: 05-15-2023 Basic metabolic pane l calcium total Mariza Gibson MD Work Phone: Start: 05-15-2023 Ct abdomen & pelvis w/contrast material Micah May DO Work Phone: Start: 05-13-2023 Mri brain brain stem w/o w/contrast material Mariza Gibson MD Work Phone: Start: 05-12-2023 Ct thorax w/contrast material Mariza Gibson MD Work Phone: Start: 05-12-2023 Glucose quantitative blood xcpt reagent strip Bonifacio Higgins MD Work Phone: Start: 05-12-2023 Creatinine blood Mariza Gibson MD Work Phone: Start: 05-11-2023 Imhistochem/cytchm 1 st antibody stain procedure Bonifacio Higgins MD Work Phone: Start: 05-11-2023 End: 05-11-2023 Exploratory laparotomy celiotomy w/wo biopsy spx Bonifacio Higgins MD Work Phone: Start: 05-11-2023 End: 05-11-2023 Salpingo-oophorectomy compl/prtl uni/bi spx Bonifacio Higgins MD Work Phone: Start: 05-11-2023 ABO and Rh group [Ty pe] in Blood by Confirmatory method Bonifacio Higgins MD Work Phone: Start: 05-11-2023 Blood count complete automated Bonifacio Higgins MD Work Phone: Start: 05-11-2023 Blood typing serolog ic rh (d) Bonifacio Higgins MD Work Phone: Start: 04-07-2023 Ct abdomen & pelvis w/o contrast material Jolie Tang APRN.QA INTERN Work Phone: Start: 03-31-2023 Us soft tissue head & neck real time imge docm Jolie Tang APRN.QA INTERN Work Phone: Start: 03-31-2023 Thyrotropin [Units/v olume] in Serum or Plasma Bonifacio Higgins MD Work Phone: Start: 09-18-2021 Adult depression scr eening assessment Jonathan Vanegas MD Work Phone: Start: 04-09-2019 Colonoscopy NA STJERNH OLM DO Start: 11-21-2016 Bilateral blepharopl asty of upper eyelids NA STJERNHOLM DO Start: 10-21-1982 Total abdominal hysterectomy NA STJERNHOLM DO Start: 10-21-1960 Appendectomy NA STJERNH OLM DO Plan of Treatment Date Care Activity Detail Author Start: 07-30-2029 DTaP/Tdap/Td Vaccine s (2 - Td or Tdap) DTaP/Tdap/Td Vaccines (2 - Td or Tdap) [facility] Start: 07-30-2029 Urine microalbumin profile [facility] Start: 03-31-2026 DIABETES SCREEN DIABETES SCREEN [facility] Start: 03-31-2026 Diabetes Screening Diabetes Screenin g [facility] Start: 09-28-2025 DIABETES SCREEN DIABETES SCREEN [facility] Start: 09-22-2024 DIABETES SCREEN DIABETES SCREEN [facility] Start: 04-11-2024 ANNUAL PCP TEAM DRILLER MULTIPLE SPINDLE DEMETRIA DISEASE VISIT ANNUAL PCP TEAM CHRONIC DISEASE VISIT [facility] Start: 04-01-2024 HEMOGLOBIN/HEMATOCRIT HEMOGLOBIN/HEM ATOCRIT [facility] Start: 03-31-2024 SERUM CREATININE SERUM CREATININE Cl [facility] Start: 03-31-2024 Thyroid stimulating hormone measurement TSH Level [facility] Start: 11-20-2023 DEPRESSION ASSESSMENT DEPRESSION ASS ESSMENT [facility] Immunizations Immunization Date Immunization Notes Care Provider Fa betty 03-21-2023 COVID-19 vaccine, ag e 12+ yr, bivalent (MODERNA) Jolie Tang APRN.QA INTERN Work Phone: [facility] Work Phone: 03-21-2023 SARSCoV2 (CV19)[id number]([id number] bival wojciech NA [facility] DO [facility] 08-16-2022 COVID-19 booster vaccine, age 12+ yr, bivalent (PFIZER-BIONTECH) Renato Ayala MD Work Phone: [facility] Work Phone: 08-16-2022 influenza (HD-IIV4) vaccine, age 65+ yr, high dose, quadrivalent, PF (FLUZONE HIGH-DOSE) Jonathan Vanegas MD Work Phone: [facility] 08-16-2022 influenza virus vaccine, unspecified formulation NA [facility] DO [facility] 08-16-2022 influenza, high dose seasonal, preservative-free Renato Ayala MD Work Phone: [facility] Work Phone: 02-18-2022 COVID-19 original vaccine, booster dose, monovalent (MODERNA) Jonathan Vanegas MD Work Phone: [facility] Work Phone: 09-15-2021 SARS-CoV-2 (COVID-19 ) mRNA-1273 vaccine NA [facility] 07-30-2021 influenza (aIIV4) vaccine, age 65+ yr, quadrivalent, PF (FLUAD QUADRIVALENT) Jonathan Vanegas MD Work Phone: [facility] Work Phone: 07-30-2021 influenza virus vaccine, unspecified formulation NA [facility] 07-30-2021 influenza, high dose seasonal, preservative-free Jonathan Vanegas MD Work Phone: [facility] Work Phone: 02-04-2021 COVID-19 original vaccine, full dose, monovalent (MODERNA) Jonathan Vanegas MD Work Phone: [facility] Payers Date Payer Category Payer Unknown [id number] 2018 Unknown [id number] 2018 Unknown [id number] 2007 Medicare [id number] 2007 Medicare [id number] 1940 Unknown [id number] 1940 Unknown [id number] 1940 Unknown [id number] 1940 Unknown [id number] Medicare [id number] Social History Date Type Detail Facility Start: 08-07-2018 End: 09-28-2022 Tobacco smoking status NHIS Never smoked tobacco [facility] Start: 08-07-2018 End: 09-28-2022 Tobacco use and exposure Smokeless tobacco non-user [facility] Start: 09-25-2021 End: 04-04-2023 Alcohol intake Current drinker of alcohol (finding) [facility] Start: 09-19-2021 History SDOH Alcohol Frequency 98 [facility] Start: 09-19-2021 End: 03-28-2023 History SDOH Alcohol Binge 1 [facility] Start: 09-19-2021 End: 03-28-2023 History SDOH Social Connections Phone 5 [facility] Start: 09-19-2021 End: 03-28-2023 History SDOH Social Connections Living 3 [facility] Start: 09-19-2021 History SDOH Physica l Activity DPW 7 [facility] Start: 09-19-2021 End: 03-28-2023 History SDOH Physical Activity MPS 2 [facility] Start: 1940 Sex Assigned At Female C [facility] Start: 09-29-2022 End: 10-09-2022 Exposure to SARS-CoV-2 (event) Unable to assess [facility] Start: 03-28-2023 History SDOH Social Connections Get Together 4 [facility] Start: 03-28-2023 History SDOH Physica l Activity DPW 6 [facility] Sex Assigned At Sex [facility] smoking consumption unknown [facility] Start: 03-28-2023 End: 05-09-2023 [facility] of [facility] Start: 03-28-2023 End: 05-09-2023 Tobacco use panel [facility] Start: 1940 Sex Assigned At Not on file S [facility] Start: 05-01-2023 End: 05-25-2023 Exposure to SARS-CoV-2 (event) Not sure [facility] Do you belong to any clubs or organizations such as scientologist groups, unions, fraternal or athletic groups, or school groups? Yes [facility] Are you now , , , , never or living with a partner? [facility] How often to you hav e a drink containing alcohol? 2-4 times a month [facility] How many standard dr inks containing alcohol do you have on a typical day? 1 or 2 [facility] How often do you hav e 6 or more drinks on 1 occasion? Never [facility] How hard is it for y ou to pay for the very basics like food, housing, medical care, and heating Not hard at all [facility] Do you feel stress - tense, restless, nervous, or anxious, or unable to sleep at night because your mind is troubled all the time - these days [OSQ] Not at all [facility] (I/We) worried wheth er (my/our) food would run out before (I/we) got money to buy more. Never true [facility] In the past 12 month s, was there a time when you were not able to pay the mortgage or rent on time? No [facility] Start: 09-17-2019 Gender identity Identifies as female gender (finding) [facility] Start: 09-17-2019 Sexual orientation Heterosexual (sundar win) [facility] Functional Status Date Assessment Result Facility 04-22-2023 Functional Status Independent [facility] 04-22-2023 Functional Status ice chips and sips take n [facility] Mental Status Date Assessment Result Facility 04-22-2023 Mental Status Orientation Oriented x 4 [facility] 04-22-2023 [facility]-12-[facility]22 to 07-15-2023 Telephone Encounter - Najma Grissom RN - 07/15/2023 3:51 PM EDTTelephone Encounter - Najma Grissom RN - 07/15/2023 3:51 PM EDTTelephone Encounter - Mary Gibson - 07/15/2023 3:20 PM EDT Note Date & Type Note Facility 07-15-2023 Telephone encounter Note Email sent [facility] 07-15-2023 Miscellaneous Notes Email sent Pt called back. Pt gave me her email. Its [email or web address] Left vm for pt-email did not go through. Pt will sign the ABN paper. Will email to pt and she will email back. Pt returned call after original call was disconnected. Please call patient back. Called pt and left VM with how much HRD testing is and if pt would like to proceed or not. Pt to call back. Spoke to Tsering and the patient is doing well and no longer needs home care. She is being followed by Dr. Heath and asked her to notify his office. Tsering from [facility] called on the behalf of patient. Tsering mentioned that they have discharged patient from homecare documented in this encounter [facility] 07-15-2023 Telephone encounter Note Pt called back. Pt gave me her email. Its [email or web address] [facility] 07-15-2023 Telephone encounter Note Left vm for pt-email did not go through. [facility] 07-15-2023 Telephone encounter Note Pt will sign the ABN paper. Will email to pt and she will email back. [facility] 07-15-2023 Telephone encounter Note Pt returned call after original call was disconnected. Please call patient back. [facility] 07-15-2023 Telephone encounter Note Called pt and left VM with how much HRD testing is and if pt would like to proceed or not. Pt to call back. [facility] 07-11-2023 Telephone encounter Note Spoke to Tsering and the patient is doing well and no longer needs home care. She is being followed by Dr. Heath and asked her to notify his office. [facility] 07-11-2023 Telephone encounter Note Tsering from [facility] called on the behalf of patient. Tsering mentioned that they have discharged patient from homecare [facility] 05-25-2023 Miscellaneous Notes Okayed [facility]MA: 04/11/2023 Last refill: 06/21/2022 QTY: 90 Refills: 3 Patient's request for medication is as follows: Requested Prescriptions Pending Prescriptions Disp Refills atorvastatin (LIPITOR) 20 mg tablet 90 tablet 3 Sig: Take 1 tablet by mouth once daily. Please approve the above prescription(s) to electronically send to pharmacy. Chito Ray Ma documented in this encounter [facility] 05-25-2023 History of Presen t illness Narrative Postop visit Patient underwent BSO with radical dissection for tumor debulking along with partial sigmoid colectomy with the finding of a high-grade serous carcinoma of the ovary. Patient previously underwent supraclavicular node biopsy which was also positive. 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 Is under the care of Dr. Perfecto Heath in [place]. Patient is doing well postop. Having bowel movements. On exam the incisions healing very nicely. 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 P) patient did have genetic testing done already. Recommend she follow-up with Dr. Heath, has an appointment tomorrow to start chemotherapy. I will see her back on a as needed basis at this time. documented in this encounter [facility] 05-20-2023 Note HNO ID: [id number] Author: Shana Reed LPN Service: ? Author Type: ? Type: Progress Notes Filed: 05/20/2023 10:48 AM Note Text: Patient refused follow up with PCP. [facility] 05-20-2023 History of Presen t illness Narrative Patient refused follow up with PCP. Below noted Does patient need a follow up appointment with me, or is she okay with current follow up as scheduled? TRANSITION CARE MANAGEMENT (TCM) INITIAL CONTACT Material Requirements Worker Outreach Provider Action/FYI: Spoke with patient and states she is doing ok. Still has some pain and nausea. See refill encounter 05/18/23 Initial contact with patient post discharge, spoke to patient. Patient identified by name and . TRANSITION CARE MANAGEMENT INITIAL OUTREACH DOCUMENTATION: No flowsheet data found. SUMMARY: -Pt discharged from [facility] on 05/16/2023. -Admitted for: Ovarian cancer met Do you have a hospital follow up appointment with your PCP? No. Patient is refusing follow up with PCP. Is to follow up with surgeon on 05/25/23 Has an appointment with oncology on 05/26/23 MEDICATIONS: Many patients have questions or concerns about their medications once they are home. Were you prescribed any new medications? If yes, what are those medications? Oxycodone 5mg 1 tablet every 6 hours as needed Extra Strength tylenol as needed Miralax daily Colace Eliquis 2.5 mg twice daily Were you told to hold any medications? No Were any of your medications discontinued? No Do you have any questions about getting or taking your medications? Your discharge instructions/After visit Summary (AVS) are important in guiding you through the recovery process. Is there anything I might help you understand? No Do you have all the necessary equipment and supplies at home? Yes Medical records from recent hospitalization: Care Everywhere documented in this encounter [facility] 05-20-2023 Note HNO ID: [id number] Author: Jonathan Vanegas MD Service: ? Author Type: Physician Type: Progress Notes Filed: 05/20/2023 10:48 AM Note Text: Below noted Does patient need a follow up appointment with me, or is she okay with current follow up as scheduled? [facility] 05-19-2023 Miscellaneous Notes Notified Tsering/Jessy SEGOVIA. Denisa Rose LPN Noted, can give verbal ok for home health services if needed. [facility] phoned to let pcp know, patient is home from the hospital and they started [facility] services last night. documented in this encounter [facility] 05-19-2023 Miscellaneous Notes Spoke with pt and information listed below given. Pt verbalizes understanding. Pt reports she is doing much better today 05/19/23. Lili Sadler LPN Patient called that the pharmacy told her only one of two prescriptions were received. They did not have anything for her Oxycodone. Please call patient and advise if possible today. Noted was in hospital for Laparotomy BSO, Radical dissection for debulking, partial sigmoid resection with anastomosis, omentectomy Post op pain should be managed by her surgeon till they transfer management to PCP if pain medication still advised for a while longer. If she is still having pain severe enough to require opiate, they should be aware. If they cannot or will not address, will okay a short term prescription (7 days) but would need seen to determine if need to prescribe for longer term or need referred for management of chronic pain. The following approved medication requests have been transmitted electronically. Requested Prescriptions Pending Prescriptions Disp Refills oxyCODONE IR (ROXICODONE) 5 mg immediate release tablet 28 tablet 0 Sig: Take 1 tablet by mouth every 6 hours as needed for up to 7 days. Signed Prescriptions Disp Refills ondansetron orally disintegrating (ZOFRAN ODT) 4 mg disintegrating tablet 20 tablet 0 Sig: Take 1 tablet by mouth every 6 hours as needed for nausea/vomiting. Authorizing Provider: JONATHAN VANEGAS MD Patient was discharged from [facility] on 05/16/23 and given Oxycodone. Patient states she has 6 pills left and asking about a refill. If she take two at bedtime she does sleep better and not so sore in the am. Patient phones requesting refills as follows: Requested Prescriptions Pending Prescriptions Disp Refills ondansetron orally disintegrating (ZOFRAN ODT) 4 mg disintegrating tablet 20 tablet 0 Sig: Take 1 tablet by mouth every 6 hours as needed for nausea/vomiting. oxyCODONE IR (ROXICODONE) 5 mg immediate release tablet Sig: Take 1 tablet by mouth every 6 hours as needed for up to 5 days. Shana Reed LPN documented in this encounter [facility] 05-18-2023 Note Patient Outreach (IN TMWS) YASMIN GREEN ([id number]) 1940 F Date Time Provider Department 05/18/23 SHANA REED During your visit today, we recorded the following information about you: Shana Reed LPN 05/20/2023 10:48 AM Signed TRANSITION CARE MANAGEMENT (TCM) INITIAL CONTACT Material Requirements Worker Outreach Provider Action/FYI: Spoke with patient and states she is doing ok. Still has some pain and nausea. See refill encounter 05/18/23 Initial contact with patient post discharge, spoke to patient. Patient identified by name and . TRANSITION CARE MANAGEMENT INITIAL OUTREACH DOCUMENTATION: No flowsheet data found. SUMMARY: -Pt discharged from [facility] on 05/16/2023. -Admitted for: Ovarian cancer met Do you have a hospital follow up appointment with your PCP? No. Patient is refusing follow up with PCP. Is to follow up with surgeon on 05/25/23 Has an appointment with oncology on 05/26/23 MEDICATIONS: Many patients have questions or concerns about their medications once they are home. Were you prescribed any new medications? If yes, what are those medications? Oxycodone 5mg 1 tablet every 6 hours as needed Extra Strength tylenol as needed Miralax daily Colace Eliquis 2.5 mg twice daily Were you told to hold any medications? No Were any of your medications discontinued? No Do you have any questions about getting or taking your medications? Your discharge instructions/After visit Summary (AVS) are important in guiding you through the recovery process. Is there anything I might help you understand? No Do you have all the necessary equipment and supplies at home? Yes Medical records from recent hospitalization: Care Everywhere Jonathan Vanegas MD 05/20/2023 10:48 AM Signed Below noted Does patient need a follow up appointment with me, or is she okay with current follow up as scheduled? Shana Reed LPN 05/20/2023 10:48 AM Signed Patient refused follow up with PCP. Allergies As of Date: 05/18/2023 Noted Allergy Reaction CATS 05/12/2007 DOGS 05/12/2007 DUST MITES 05/12/2007 environmental [Other] 05/12/2007 GRASS POLLEN 05/12/2007 16 - Unknown HOUSE DUST MITE 09/25/2021 16 - Unknown MOLD 05/12/2007 16 - Unknown Date Reviewed: 04/11/2023 Reviewed by: Francisca Hollingsworth LPN - Fully Assessed Prescriptions as of 05/20/2023 - oxyCODONE IR (ROXICODONE) 5 mg immediate release tablet Take 5 mg by mouth every 6 hours as needed. - ondansetron orally disintegrating (ZOFRAN ODT) 4 mg disintegrating tablet Take 1 tablet by mouth every 6 hours as needed for nausea/vomiting. - ferrous sulfate 325 mg (65 mg iron) tablet Take 1 tablet by mouth every other day. - levothyroxine (SYNTHROID) 112 mcg tablet Take 1 tablet by mouth once daily. - albuterol HFA (PROAIR HFA) 90 mcg/actuation inhaler Inhale 2 Puffs as instructed every 4 hours as needed for wheezing/shortness of breath. - sertraline (ZOLOFT) 50 mg tablet Take 0.5 tablets by mouth once daily. - atorvastatin (LIPITOR) 20 mg tablet Take 1 tablet by mouth once daily. - fluticasone-salmeterol (ADVAIR DISKUS) 250-50 mcg/dose inhaler Inhale 1 Puff as instructed twice daily. RINSE AND GARGLE MOUTH WITH WATER AFTER EACH USE. - cycloSPORINE 0.05 % ophthalmic emulsion Use 1 Drop in both eyes twice daily. - Cholecalciferol, Vitamin D3, 2,000 unit ORAL Cap Take one(1) tablet daily. - psyllium (METAMUCIL SMOOTH TEXTURE) 28 % ORAL Pack Take as directed. Problem List As Of Date 05/18/2023 Noted Resolved BENIGN NEOPLASM LG BOWEL [D12.6] 05/12/2007 Anxiety state [F41.1] 05/12/2007 Hypothyroidism [E03.9] 05/12/2007 IRRITABLE COLON [K58.9] 05/12/2007 GASTROINTEST HEMORR NOS [K92.2] 07/12/2007 Internal hemorrhoids [K64.8] 07/12/2007 External hemorrhoids [K64.4] 07/12/2007 Hypercholesteremia [E78.00] Stage 3 chronic kidney disease (HCC) [N18.30] 04/04/2023 Encounter Status:Closed by SHANA REED LPN on 05/20/23 [facility] 05-18-2023 Note HNO ID: [id number] Author: Shana Reed LPN Service: ? Author Type: ? Type: Progress Notes Filed: 05/20/2023 10:48 AM Note Text: TRANSITION CARE MANAGEMENT (TCM) INITIAL CONTACT Material Requirements Worker Outreach Provider Action/FYI: Spoke with patient and states she is doing ok. Still has some pain and nausea. See refill encounter 05/18/23 Initial contact with patient post discharge, spoke to patient. Patient identified by name and . TRANSITION CARE MANAGEMENT INITIAL OUTREACH DOCUMENTATION: No flowsheet data found. SUMMARY: -Pt discharged from [facility] on 05/16/2023. -Admitted for: Ovarian cancer met Do you have a hospital follow up appointment with your PCP? No. Patient is refusing follow up with PCP. Is to follow up with surgeon on 05/25/23 Has an appointment with oncology on 05/26/23 MEDICATIONS: Many patients have questions or concerns about their medications once they are home. Were you prescribed any new medications? If yes, what are those medications? Oxycodone 5mg 1 tablet every 6 hours as needed Extra Strength tylenol as needed Miralax daily Colace Eliquis 2.5 mg twice daily Were you told to hold any medications? No Were any of your medications discontinued? No Do you have any questions about getting or taking your medications? Your discharge instructions/After visit Summary (AVS) are important in guiding you through the recovery process. Is there anything I might help you understand? No Do you have all the necessary equipment and supplies at home? Yes Medical records from recent hospitalization: Care Everywhere [facility] 05-16-2023 Nurse Note Pt discharge paper reviewed and signed, pt verbalized understanding [facility] 05-16-2023 Nurse Note Pt discharge paper reviewed and signed, pt verbalized understanding Patient had unmeasured but seeming significant amount of emesis. Dr. Micah May notified via Secure Chat. See new orders. Montoya removed at 0440 per order. 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 female admitted for postoperative care. She underwent laparotomy with BSO, partial sigmoid resection and reanastomosis with debulking on 05/11/. Montoya catheter was removed on POD#1, she received 24 hours of Cefoxitin. She developed a postoperative ileus which resolved with conservative measures. She was doing well and stable for discharge home on POD#5. Course of patient: as above Discharge to: Home Wound Care: keep wound clean and dry Recommendations on Discharge: Medications: Medication List START taking these medications acetaminophen 500 MG tablet Commonly known as: Tylenol Extra Strength Take 2 tablets (1,000 mg) by mouth every 8 hours as needed for mild pain (1-3) for up to 10 days. docusate sodium 100 MG capsule Commonly known as: Colace Take 1 capsule (100 mg) by mouth 2 times daily. Eliquis 2.5 MG tablet Generic drug: apixaban Take 1 tablet (2.5 mg) by mouth 2 times daily. polyethylene glycol (PEG) 3350 17 g packet Commonly known as: MiraLax Take 17 g by mouth daily. senna-docusate sodium 8.6-50 MG tablet Commonly known as: Senokot-S Take 1 tablet by mouth daily. CONTINUE taking these medications albuterol 108 (90 Base) MCG/ACT inhaler atorvastatin 20 MG tablet Commonly known as: Lipitor cycloSPORINE 0.05 % ophthalmic emulsion Commonly known as: Restasis FeroSul 325 (65 Fe) MG tablet Generic drug: ferrous sulfate levothyroxine 112 MCG tablet Commonly known as: Synthroid, Levoxyl ondansetron ODT 4 MG disintegrating tablet Commonly known as: Zofran-ODT psyllium 28 % packet Commonly known as: Metamucil sertraline 50 MG tablet Commonly known as: Zoloft Vitamin D 50 MCG (2000 UT) capsule STOP taking these medications GaviLyte-G 236 g solution Generic drug: polyethylene glycol Where to Get Your Medications These medications were sent to [facility] [address] [place] [id number] Hours: Tuesday to Tuesday 10 am to 6 pm acetaminophen 500 MG tablet docusate sodium 100 MG capsule Eliquis 2.5 MG tablet polyethylene glycol (PEG) 3350 17 g packet senna-docusate sodium 8.6-50 MG tablet Activity: activity as tolerated, no driving while on analgesics, and no intercourse until cleared by Dr. Higgins Diet: regular diet Follow up: 05/[address] Higgins Condition on discharge: good and stable Discharge Date: 05/16/23 Comments: Home care, Follow-up care, restrictions reviewed. Mariza Gibson MD 05/16/2023, 2:24 PM [facility] 05-16-2023 Note Care Management Prog ress Note 05/11- Lap BSO, debulking, partial sigmoid resection -Reg diet Discharge plan- Home with home care- [facility] will follow Discharge Milestones and Delays Expected Date/Time: 05/17/[address] discharge order Complete med reconciliation Case mgmt discharge readiness Clinical Stability Diagnsotic Workup Expected Discharge History Expected Date/Time Set By Reviewed At 05/17/2023 Amina Omalley RN 05/16/2023 8:44 AM TCC est 05/15/2023 Amina Omalley RN 05/13/2023 8:47 AM 05/15/2023 Amina Omalley RN 05/12/2023 8:37 AM 05/15/2023 Mariza Gibson MD 05/11/2023 2:27 PM 05/15/2023 Bonifacio Higgins MD 05/11/2023 9:26 AM Length of Stay (Days): 5 GMLOS: 4.0 [facility] 05-16-2023 Hospital Discharg e instructions Cindi Castañeda DO - 05/16/2023 2:25 PM EDT Please follow your post operative care instructions given to you by your Guest Relations Officer Oncologist's office at your pre operative visit. Please call the office with questions or concerns and be sure to follow up at your scheduled post operative visit. documented in this encounter [facility] 05-16-2023 Hospital course Narrative Images from the original note were not included. 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 female admitted for postoperative care. She underwent laparotomy with BSO, partial sigmoid resection and reanastomosis with debulking on 05/11/23. Montoya catheter was removed on POD#1, she received 24 hours of Cefoxitin. She developed a postoperative ileus which resolved with conservative measures. She was doing well and stable for discharge home on POD#5. Course of patient: as above Discharge to: Home Wound Care: keep wound clean and dry Recommendations on Discharge: Medications: Medication List START taking these medications acetaminophen 500 MG tablet Commonly known as: Tylenol Extra Strength Take 2 tablets (1,000 mg) by mouth every 8 hours as needed for mild pain (1-3) for up to 10 days. docusate sodium 100 MG capsule Commonly known as: Colace Take 1 capsule (100 mg) by mouth 2 times daily. Eliquis 2.5 MG tablet Generic drug: apixaban Take 1 tablet (2.5 mg) by mouth 2 times daily. polyethylene glycol (PEG) 3350 17 g packet Commonly known as: MiraLax Take 17 g by mouth daily. senna-docusate sodium 8.6-50 MG tablet Commonly known as: Senokot-S Take 1 tablet by mouth daily. CONTINUE taking these medications albuterol 108 (90 Base) MCG/ACT inhaler atorvastatin 20 MG tablet Commonly known as: Lipitor cycloSPORINE 0.05 % ophthalmic emulsion Commonly known as: Restasis FeroSul 325 (65 Fe) MG tablet Generic drug: ferrous sulfate levothyroxine 112 MCG tablet Commonly known as: Synthroid, Levoxyl ondansetron ODT 4 MG disintegrating tablet Commonly known as: Zofran-ODT psyllium 28 % packet Commonly known as: Metamucil sertraline 50 MG tablet Commonly known as: Zoloft Vitamin D 50 MCG (1999 UT) capsule STOP taking these medications GaviLyte-G 236 g solution Generic drug: polyethylene glycol Where to Get Your Medications These medications were sent to [facility] [address] [place] [address] Hours: Tuesday to Tuesday 10 am to 6 pm acetaminophen 500 MG tablet docusate sodium 100 MG capsule Eliquis 2.5 MG tablet polyethylene glycol (PEG) 3350 17 g packet senna-docusate sodium 8.6-50 MG tablet Activity: activity as tolerated, no driving while on analgesics, and no intercourse until cleared by Dr. Higgins Diet: regular diet Follow up: 05/[address] Higgins Condition on discharge: good and stable Discharge Date: 05/16/23 Comments: Home care, Follow-up care, restrictions reviewed. Mariza Gibson MD 05/16/2023, 2:24 PM documented in this encounter [facility] 05-16-2023 Note Formatting of this n ote is different from the original. Images from the original note were not included. Care Management Progress Note 05/11- BSO, debulking, partial sigmoid resection -Reg diet Discharge plan- Home with home care- TCC will follow Discharge Milestones and Delays Expected Date/Time: 05/17/[address] discharge order Complete med reconciliation Case mgmt discharge readiness Clinical Stability Diagnsotic Workup Expected Discharge History Expected Date/Time Set By Reviewed At 05/17/2023 Amina Omalley RN 05/16/2023 8:44 AM TCC est 05/15/2023 Amina Omalley RN 05/13/2023 8:47 AM 05/15/2023 Amina Omalley RN 05/12/2023 8:37 AM 05/15/2023 Mariza Gibson MD 05/11/2023 2:27 PM 05/15/2023 Bonifacio Higgins MD 05/11/2023 9:26 AM Length of Stay (Days): 5 GMLOS: 4.0 T [facility] 05-16-2023 Note Formatting of this n ote is different from the original. Images from the original note were not included. Care Management Progress Note 05/11- Lap BSO, debulking, partial sigmoid resection -Reg diet Discharge plan- Home with home care- TCC will follow Discharge Milestones and Delays Expected Date/Time: 05/17/[address] discharge order Complete med reconciliation Case mgmt discharge readiness Clinical Stability Diagnsotic Workup Expected Discharge History Expected Date/Time Set By Reviewed At 05/17/2023 Amina Omalley RN 05/16/2023 8:44 AM TCC est 05/15/2023 Amina Omalley RN 05/13/2023 8:47 AM 05/15/2023 Amina Omalley RN 05/12/2023 8:37 AM 05/15/2023 Mariza Gibson MD 05/11/2023 2:27 PM 05/15/2023 Bonifacio Higgins MD 05/11/2023 9:26 AM Length of Stay (Days): 5 GMLOS: 4.0 T [facility] 05-16-2023 Miscellaneous Notes Images from the original note were not included. Care Management Progress Note 05/11- Lap BSO, debulking, partial sigmoid resection -Reg diet Discharge plan- Home with home care- TCC will follow Discharge Milestones and Delays Expected Date/Time: 05/17/[address] discharge order Complete med reconciliation Case mgmt discharge readiness Clinical Stability Diagnsotic Workup Expected Discharge History Expected Date/Time Set By Reviewed At 05/17/2023 Amina Omalley RN 05/16/2023 8:44 AM TCC est 05/15/2023 Amina Omalley RN 05/13/2023 8:47 AM 05/15/2023 Amina Omalley RN 05/12/2023 8:37 AM 05/15/2023 Mariza Gibson MD 05/11/2023 2:27 PM 05/15/2023 Bonifacio Higgins MD 05/11/2023 9:26 AM Length of Stay (Days): 5 GMLOS: 4.0 Problem: Pain - Adult Goal: Verbalizes/displays adequate comfort level or baseline comfort level Outcome: Progressing Problem: Safety - Adult Goal: Free from fall injury Outcome: Progressing Problem: Discharge Planning Goal: Discharge to home or other facility with appropriate resources Outcome: Progressing Problem: Chronic Conditions and Co-morbidities Goal: Patient's chronic conditions and co-morbidity symptoms are monitored and maintained or improved Outcome: Progressing Problem: Knowledge Deficit Goal: Patient/family/caregiver demonstrates understanding of disease process, treatment plan, medications, and discharge instructions Outcome: Progressing Problem: Potential for Compromised Skin Integrity Goal: Skin Integrity is Maintained or Improved Outcome: Progressing Goal: Nutritional status is improving Outcome: Progressing Problem: Urinary Incontinence Goal: Perineal skin integrity is maintained or improved Outcome: Progressing Images from the original note were not included. Care Management Progress Note 05/11- Lap BSO, debulking, partial sigmoid resection -Reg diet- MR brain ordered Discharge plan- Home with home care- TCC will follow Discharge Milestones and Delays Expected Date/Time: 05/15/[address] discharge order Complete med reconciliation Case mgmt discharge readiness Clinical Stability Diagnsotic Workup Expected Discharge History Expected Date/Time Set By Reviewed At 05/15/2023 Amina Omalley RN 05/13/2023 8:47 AM 05/15/2023 Amina Omalley RN 05/12/2023 8:37 AM 05/15/2023 Mariza Gibson MD 05/11/2023 2:27 PM 05/15/2023 Bonifacio Higgins MD 05/11/2023 9:26 AM Length of Stay (Days): 2 GMLOS: No GMLOS Documented Patient is requesting [facility] referral for [facility] Referral to be placed in [facility] and will follow up regarding ability to accept. Patient Choice Patient Name: YASMIN GREEN Date of : 1940 All Providers Sent Referral Name: [employer] [facility] Check I'm Here, [facility] Phone: [phone] [address]: [address] [place] [address] Care Managment Initial Assessment Date: 05/12/2023 Patient Name: Yasmin Green : 1940 Patient Information Source of Information: Patient Cognition/Language: WFL - Within Functional Limits Permission given to speak with patient provider relations representative/caregiver as indicated: Confirmation of Payer with patient/family: Yes Payer Name: MEDICARE : No Confirmation of Primary Care Physician: Confirmed PCP Name: Dr Jonathan Vanegas Seen in last 2 years?: Yes Primary Caregiver: Self If assistance needed, confirmed caregiver ready, willing and able to care for patient at discharge: Confirmed with: Living Arrangements Current Residence: House Number of Floors 2 Number of Entry Steps: 5 or more (5 steps) Bed/Bath Levels: Facility: Facility Name: Plan to Return: Lives with: Spouse/significant other Support Systems: Spouse/significant other, Family members Activities of Daily Living Ambulation: Independent Bathing/Dressing: Independent Elimination/Continence/Toileting: Independent Feeding: Independent Who Assists with Activities of Daily Living: Instrumental Activities of Daily Living Prescription Coverage: Yes Pharmacy Used: [facility] Medication Management: Independent Transportation/Shopping: Independent Transportation Mode: Car Needs Assistance with Transportation at Discharge: No Meal Preparation: Independent Laundry/Cleaning: Independent Finances/Bill Paying: Independent Communication: Independent Types of Care Services/Equipment Utilized Care Services: Dialysis Type: Durable Medical Equipment: Cane (L knee brace- cane for long distances) Patient's Goal/Discharge Plan Patient expects to be discharged to: home with home care- interested in [facility]- HC liaison notifed Discharge Planning Actions: Continue to follow Patient's Choice Rights and [employer] and Collaborative Relationships Disclosed as Indicated for Post-Acute Care: Interdisciplinary Team Engagement: Home Health Care Social Work Referral for: Additional Information: Met with patient and husb at bedside -Dtr on speaker phone- reviewed discharge plan, introduced self and role. Patient from home independent with husb. Patient states has insurance and able to afford medications. Help available at home and family will provide transportation home. Interested in follow up visit from home care- has used [facility] in the past- HC liaison notified Plan -Home with home care- when medically stable. Patient family/visitor updated by RN at this time. Date of surgery 05/11/2023 Preoperative diagnosis stage IVb ovarian cancer, rectovaginal fistula Postoperative diagnosis ovarian cancer, secondary malignancy of sigmoid colon, secondary malignancy of omentum, secondary malignancy of pelvic peritoneum Surgery was laparotomy with BSO for an ovarian malignancy with radical dissection for debulking, partial sigmoid resection with anastomosis. Omentectomy. Surgeon Ronaldo Anesthesia General description of findings there was a large mass involving the left tube and ovary that was complex down to the sigmoid colon and causing a complex fistula in the vesicovaginal space into the vagina. There was no disease noted in the upper abdomen. The omentum was normal except for some tumor involving the omentum which was stuck to the mass in the pelvis. At the completion of surgery all intra-abdominal disease had been removed. Description of operation Patient identified brought to the operating room and after ministration of general anesthesia underwent abdominal perineal vaginal prep and drape Montoya catheter was inserted a sponge check was placed in the vagina and she was prepped and draped in a lithotomy Cixi timeout had been performed. Using a knife a lower midline incision was made sharp divide down to the skin with a knife followed by Bovie cautery to open the skin up above the umbilicus, opened up the fascia and the peritoneal cavity was opened using Metzenbaum scissors. Omental adhesions to the intra-abdominal wall were sharply lysed lysed as well as omental adhesions to the mass in the pelvis. The tail of the omentum was left on the mass using the Enseal device. The Jeffrey retractor was then placed followed by the Bookwalter retractor. Attention was first turned to the right pelvic sidewall. Right pelvic sidewall was opened, the right ureter identified. Attention then turned to the left pelvic sidewall, the left pelvic sidewall was opened the left ureter identified in the sigmoid colon was mobilized up. Using sharp as well as blunt dissection the mass was dissected off the left pelvic sidewall this included removal of a large amount of the peritoneum, the mass was complex to the sigmoid colon. At approximately the pelvic brim the mesentery of the sigmoid colon was opened, using the Enseal device the colon was transected at this point. Using the Enseal device the sigmoid colon mesentery was resected down below the mass where was complexed onto the ovary as well as onto the vagina. The mass was further dissected off and brought up out of the cul-de-sac. It was also dissected off the bladder. This then allowed the distal part of the colon to be cut using the SKYE 80 device and the mesentery was further taken down using the Enseal device. This remove the large ovary and sigmoid colon en bloc up. Several bits of omentum that were stuck to the mass by the bladder also resected along with this resection. The fistula area had been completely uncovered and was draining nicely into the vagina. It was copiously irrigated. A functional [id number] anastomosis was then performed of the sigmoid colon using the SKYE device making a small stab incision in the proximal and distal limbs of the colon and using the SKYE-75 to create a anastomosis. The colpotomy incision was closed using a running 3-0 PDS on the mucosal followed by imbricating sutures of 3-0 silk. Infracolic omentectomy was then performed using the Enseal device. No other disease was noted in the abdomen or pelvis, the abdomen pelvis was copiously irrigated. It should be noted that during the dissection of the mass off the intra-abdominal wall a small amount of pus and stool was leaked into the pelvis as we uncovered the fistula site. This was copiously irrigated out and additional antibiotics with Flagyl were given. The fascia was then closed using a running #1 PDS in a loop mass closure system followed by subcutaneous interrupted #1 in the subcutaneous tissue of PDS followed by running 3-0 Monocryl and Steri-Strips. She was taken to cover room in stable condition with an EBL about 200 cc and clear urine in the Montoya bag. 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 (Active) Catheter Indications Short-term following a surgical procedure (i.e. Urological or Gynecological) or active irrigation 05/11/23 1245 Site Assessment Skin intact;Clean 05/11/23 1245 Collection Container Standard drainage bag 05/11/23 1245 Securement Method Securing device 05/11/23 1245 Catheter Best Practices Drainage tube clipped to bed;Catheter secured to thigh;Tamper seal intact;Bag below bladder;Bag not on floor;Lack of dependent loop in tubing;Drainage bag less than half full 05/11/23 1245 Catheter Status Draining 05/11/23 1245 Specimens ID Source Type Tests Collected By Collected At Frozen? Priority Lab ID 1 Ovary, Left Tissue TISSUE EXAM Bonifacio Higgins MD 05/11/23 1147 No Routine Description: LEFT OVARY, PORTION OF SIGMOID 2 Abdominal Wall Tissue TISSUE EXAM Bonifacio Higgins MD 05/11/23 1151 Routine Description: ANTERIOR PELVIC BIOPSY 3 Ovary, Right Tissue TISSUE EXAM Bonifacio Higgins MD 05/11/23 1157 Routine Description: RIGHT FALLOPIAN TUBE AND OVARY 4 Omentum, Biopsy Tissue TISSUE EXAM Bonifacio Higgins MD 05/11/23 1202 Routine Description: OMENTUM Implants Staff: Prepleater: Chinedu Yanez RN Relief Prepleater: Jennifer Flor RN Scrub Person: Geraldo Holley RN Sacul to Circ: Erika Grimes RN Findings: see op note Complications: Specimens CollecteNone; patient tolerated the procedure well.d: Order Name Source Comment Collection Info Order Time CBC (HEMOGRAM) Blood, Venous Collected By: Andria Perez RN 05/11/2023 9:26 AM BLOOD TYPE AND SCREEN GEL Blood, Venous HOLD. 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 Collected By: Bonifacio Higgins MD 05/11/2023 11:47 AM Wound Class: Class III: Contaminated Blood Products: None Prophylactic Antibiotics: Procedure appropriate prophylactic antibiotic(s) given within 1 hour of surgical incision (two hours if receiving Vancomycin or flouroquinolone) documented in this encounter [facility] 05-16-2023 History of Presen t illness Narrative Images from the original note were not included. COM[facility] ONC Progress Note Date: 05/16/2023 Time: 6:06 AM Yasmin Green 82 y.o. female POD #5 s/p Laparotomy BSO, Radical dissection for debulking, partial sigmoid resection with anastomosis, omentectomy Patient seen and examined. She is doing well this morning. Pain is controlled. Patient is tolerating clear liquid diet. She is urinating. She is ambulating without difficulty. She is passing flatus. She had 2 large, loose bowel movements overnight. She denies Fever/Chills, Chest Pain, SOB, N/V. Vitals: Vitals: 05/15/23 0500 05/15/23 0500 05/15/23 1025 05/15/23 1803 BP: (!) 167/88 (!) 167/88 (!) 148/86 (!) 140/80 BP Location: Right arm Pulse: 88 86 98 Resp: 16 16 19 Temp: 36.8 C (98.2 F) 36.8 C (98.2 F) 36.2 C (97.1 F) TempSrc: Temporal Temporal Temporal SpO2: 96% 96% 92% Intake/Output: Current Shift: No intake/output data recorded. Physical Exam: Gen: NAD, resting comfortably in bed HEENT: Normocephalic, Atraumatic Resp: No increased WOB, no respiratory distress Card: Regular rate Abd: soft, nontender, mildly distended, no rebound, no guarding Incisions: midline vertical c/d/i Medications: Current Facility-Administered Medications: acetaminophen (Tylenol) tablet 1,000 mg, 1,000 mg, Oral, q8h, Mariza Gibson MD, 1,000 mg at 05/14/232041 albuterol 108 (90 Base) MCG/ACT inhaler 2 puff, 2 puff, Inhalation, q4h PRN, Mariza Gibson MD docusate sodium (Colace) capsule 100 mg, 100 mg, Oral, BID, Micah May DO enoxaparin (Lovenox) syringe 40 mg, 40 mg, SubCUTAneous, Daily, Mariza Gibson MD, 40 mg at 05/14/23 1023 heparin flush injection 100 Units, 100 Units, IntraCATHeter, PRN, Mariza Gibson MD hydrALAZINE (Apresoline) injection 5 mg, 5 mg, IntraVENous, q4h PRN, Mariza Gibson MD lactated Ringer's infusion, 75 mL/hr, IntraVENous, Continuous, Micah May DO, Last Rate: 75 mL/hr at 05/14/234, 75 mL/hr at 05/14/23 221 levothyroxine (Synthroid, Levoxyl) tablet 112 mcg, 112 mcg, Oral, Daily, Mariza Gibson MD, 112 mcg at 05/15/23 0900 ondansetron ODT (Zofran-ODT) disintegrating tablet 4 mg, 4 mg, Oral, q8h PRN, 4 mg at 05/14/23 0739 OR ondansetron (Zofran) injection 4 mg, 4 mg, IntraVENous, q6h PRN, Mariza Gibson MD, 4 mg at 05/14/232036 oxyCODONE (Roxicodone) immediate release tablet 5 mg, 5 mg, Oral, q4h PRN, 5 mg at 05/15/23 1025 OR oxyCODONE (Roxicodone) immediate release tablet 10 mg, 10 mg, Oral, q4h PRN, Mariza Gibson MD, 10 mg at 05/15/232045 polyethylene glycol (PEG) 3350 (Miralax) packet 17 g, 17 g, Oral, Daily, Mariza Gibson MD polyvinyl alcohol (Liquifilm Tears) 1.4 % ophthalmic solution 1 drop, 1 drop, Both Eyes, BID PRN, Mariza Gibson MD senna-docusate sodium (Senokot-S) 8.6-50 MG tablet 2 tablet, 2 tablet, Oral, BID, Mariza Gibson MD sertraline (Zoloft) tablet 25 mg, 25 mg, Oral, Daily, Mariza Gibson MD, 25 mg at 05/15/23 0900 simethicone (Mylicon) chewable tablet 80 mg, 80 mg, Oral, PRN, Mariza Gibson MD sodium chloride 0.9 % infusion, 5-250 mL/hr, IntraVENous, PRN, Mariza Gibson MD sodium chloride 0.9% (NS) flush 10 mL, 10 mL, IntraVENous, 2 times per day, Mariza Gibson MD, 10 mL at 05/14/23 2100 sodium chloride 0.9% (NS) flush 10 mL, 10 mL, IntraVENous, PRN, Mariza Gibson MD Diagnostics: CT chest w IV contrast Result Date: 05/12/2023 Patient Name: YASMIN GREEN : 1940 [facility]#: [id number] Exam Date/Time: 05/12/2023 13:44 Procedure: CT CHEST W IV CONTRAST Ordering Provider: HIGGINS STEPHEN Reason For Exam: Ovarian cancer, staging CT CHEST WITH CONTRAST CLINICAL INDICATION: Ovarian cancer staging. Recent laparotomy. TECHNIQUE: Transaxial sequence CT images of the chest were acquired after the intravenous administration of 75 mL of Isovue-370 contrast. Coronal and sagittal reformatted images were also made available for interpretation. Dose reduction was employed with automated exposure control. COMPARISON: Correlation is made to PET CT 05/10/2023 FINDINGS: Limitations: Mild motion artifact. Heart/mediastinum: Heart size is within normal limits. Thoracic aorta and pulmonary trunk are normal in caliber. A few prominent mediastinal lymph nodes without suspicious bulky adenopathy. Lungs/pleura: Small amount of dependent airspace disease involving the lung lower lobes as well as the lingula. No significant pleural effusions. No pneumothorax. On axial series 9 image 70 poorly defined 3 mm right apical nodule unchanged from PET/CT. 4 mm nodule right lower lobe on image 153 series 9 fairly similar. Central tracheobronchial tree appears patent. Visualized upper abdomen: Trace pneumoperitoneum likely postsurgical. Trace perihepatic and perisplenic ascites. Visualized portions of the liver appear fairly homogeneous. Spleen appears within normal limits. No discrete adrenal mass or nodule. Visualized kidneys appear within normal limits. Prominent and mildly enlarged retroperitoneal, right retrocrural, periceliac, and mesenteric lymph nodes. These demonstrated FDG avidity on PET/CT. Largest discrete lymph node located in the left retroperitoneum measures about 12 mm in short access series 4 image 108 Osseous structures/soft tissues: Degenerative spondylosis in the visualized spine. Suspected hemangioma in L1. Prominent left axillary and retropectoral lymph nodes measuring up to 10 mm in short access. Enlarged left supraclavicular and left lower cervical chain lymph nodes measuring 14 mm in short access. These demonstrated FDG avidity on prior PET/CT. 1. Prominent and mildly enlarged upper abdominal, right retrocrural, left axillary/left retropectoral, and left supraclavicular/left lower cervical chain lymph nodes. Largest measures up to 14 mm in short access. These demonstrated FDG activity on prior PET/CT. 2. Punctate 4 mm nodule right lower lobe and 3 mm nodule right lung apex unchanged from prior PET/CT. These are indeterminant. 3. Small amount of dependent airspace disease involving the lower lobes as well as the lingula. 4. Trace pneumoperitoneum presumably postsurgical. Report Dictated on Electronically Signed By: Ian Cee Component Date Value Ref Range Status Auto WBC 05/11/2023 16.4 (H) 3.6 - 10.7 10*3/uL Final RBC 05/11/2023 3.99 3.8 - 5.20 10*6/uL Final Hemoglobin 05/11/2023 10.8 (L) 11.7 - 16.0 g/dL Final Hematocrit 05/11/2023 33.7 (L) 35.0 - 47.0 % Final MCV 05/11/2023 84.6 80.0 - 98.0 fL Final MCH 05/11/2023 27.2 26.0 - 34.0 pg Final MCHC 05/11/2023 32.1 32.0 - 36.0 % Final RDW 05/11/2023 14.3 11.5 - 14.5 % Final Platelets 05/11/2023 502 (H) 140 - 440 10*3/uL Final MPV 05/11/2023 8.0 7.4 - 12.4 fL Final ABO Grouping 05/11/2023 A Final Antibody Screen 05/11/2023 NEG Final Rh Type 05/11/2023 POS Final ABO Grouping 05/11/2023 A Final Rh Type 05/11/2023 POS Final CREATININE 05/12/2023 0.84 0.52 - 1.04 mg/dL Final eGFR 05/12/2023 70.4 >60.0 mL/min/1.73m*2 Final Calculation based on the Chronic Kidney Disease Epidemiology Collaboration (CKD-EPI) equation refit without adjustment for race Glucose 05/12/2023 167 (H) 70 - 100 mg/dL Final Auto WBC 05/15/2023 17.6 (H) 3.6 - 10.7 10*3/uL Final RBC 05/15/2023 3.97 3.8 - 5.20 10*6/uL Final Hemoglobin 05/15/2023 10.5 (L) 11.7 - 16.0 g/dL Final Hematocrit 05/15/2023 33.9 (L) 35.0 - 47.0 % Final MCV 05/15/2023 85.3 80.0 - 98.0 fL Final MCH 05/15/2023 26.5 26.0 - 34.0 pg Final MCHC 05/15/2023 31.1 (L) 32.0 - 36.0 % Final RDW 05/15/2023 14.6 (H) 11.5 - 14.5 % Final Platelets 05/15/2023 561 (H) 140 - 440 10*3/uL Final MPV 05/15/2023 8.1 7.4 - 12.4 fL Final SODIUM 05/15/2023 134 (L) 135 - 145 mmol/L Final POTASSIUM 05/15/2023 3.6 3.5 - 5.1 mmol/L Final CHLORIDE 05/15/2023 98 98 - 107 mmol/L Final CARBON DIOXIDE 05/15/2023 31 (H) 22 - 30 mmol/L Final UREA NITROGEN 05/15/2023 11 7 - 17 mg/dL Final CREATININE 05/15/2023 0.69 0.52 - 1.04 mg/dL Final GLUCOSE 05/15/2023 96 70 - 100 mg/dL Final CALCIUM 05/15/2023 8.1 (L) 8.4 - 10.4 mg/dL Final ANION GAP 05/15/2023 5 3 - 13 mmol/L Final eGFR 05/15/2023 87.9 >60.0 mL/min/1.73m*2 Final Calculation based on the Chronic Kidney Disease Epidemiology Collaboration (CKD-EPI) equation refit without adjustment for race ] Assessment/Plan: Yasmin Green 82 y.o. female POD #5 s/p Laparotomy BSO, Radical dissection for debulking, partial sigmoid resection with anastomosis, omentectomy Postoperative state - Doing well, vitals stable - Voiding spontaneously - Encourage ambulation and use of incentive spirometer - Pain controlled: yes - DVT Proph:SCDs - Abx: s/p cefoxitin - Diet: CLD - IVF: LR at 75 ml/hr - Yesterday with concern for possible obstruction given episode of emesis but has not had any further episodes - Had 2 loose bowel movements overnight Anxiety - Continue home zoloft Hypothyroid - Continue home synthroid Mariza Gibson MD 05/16/2023, 6:06 AM Associated attestation - Bonifacio Higgins MD - 05/16/2023 7:24 AM EDT Patient feeling much better today. Has had 3 bowel movements. Abdomen is soft and nondistended. Tolerating p.o. Will advance to regular diet and discharge home later today A) postoperative ileus NOS Ovarian carcinoma Secondary cancer of peritoneum Secondary cancer of colon P) okay to discharge to home today. Images from the original note were not included. COMBINATION MAN ONC Progress Note Date: 05/15/2023 Time: 6:34 AM Yasmin Green 82 y.o. female POD #4 s/p Laparotomy BSO, Radical dissection for debulking, partial sigmoid resection with anastomosis, omentectomy Patient seen and examined. She complained of one episode of emesis overnight. Otherwise has not had any nausea or further episodes of emesis. Pain is somewhat controlled this morning due to not taking PO pain medications overnight. She is urinating. She is ambulating without difficulty. She is passing flatus, still no bowel movement. She denies Fever/Chills, Chest Pain, SOB, N/V. Vitals: Vitals: 05/14/23 1742 05/15/23 0126 05/15/23 0500 05/15/23 0500 BP: 133/84 (!) 154/78 (!) 167/88 (!) 167/88 BP Location: Right arm Patient Position: Pulse: 91 88 88 86 Resp: 18 16 16 16 Temp: 36.8 C (98.3 F) 36.3 C (97.3 F) 36.8 C (98.2 F) 36.8 C (98.2 F) TempSrc: Temporal Temporal Temporal Temporal SpO2: 93% 95% 96% 96% Intake/Output: Current Shift: I/O this shift: In: 525 [I.V.:525] Out: 1 [Emesis/NG output:1] Physical Exam: Gen: NAD, resting comfortably in bed HEENT: Normocephalic, Atraumatic Resp: No increased WOB, no respiratory distress Card: Regular rate Abd: soft, mildly distended, nontender to palpation, no rebound, no guarding, present tympanic bowel sounds Incisions: midline vertical incision c/d/i Ext: No calf tenderness, swelling Medications: Current Facility-Administered Medications: acetaminophen (Tylenol) tablet 1,000 mg, 1,000 mg, Oral, q8h, Mariza Gibson MD, 1,000 mg at 05/14/23 204 albuterol 108 (90 Base) MCG/ACT inhaler 2 puff, 2 puff, Inhalation, q4h PRN, Mariza Gibson MD docusate sodium (Colace) capsule 100 mg, 100 mg, Oral, BID, Micah May DO enoxaparin (Lovenox) syringe 40 mg, 40 mg, SubCUTAneous, Daily, Mariza Gibson MD, 40 mg at 05/14/23 1023 heparin flush injection 100 Units, 100 Units, IntraCATHeter, PRN, Mariza Gibson MD HYDROmorphone (Dilaudid) injection 0.5 mg, 0.5 mg, IntraVENous, q2h PRN, Mariza Gibson MD lactated Ringer's infusion, 75 mL/hr, IntraVENous, Continuous, Micah May DO, Last Rate: 75 mL/hr at 05/14/232213, 75 mL/hr at 05/14/232213 levothyroxine (Synthroid, Levoxyl) tablet 112 mcg, 112 mcg, Oral, Daily, Mariza Gibson MD, 112 mcg at 05/14/23 1028 ondansetron ODT (Zofran-ODT) disintegrating tablet 4 mg, 4 mg, Oral, q8h PRN, 4 mg at 05/14/23 0739 OR ondansetron (Zofran) injection 4 mg, 4 mg, IntraVENous, q6h PRN, Mariza Gibson MD, 4 mg at 05/14/232036 oxyCODONE (Roxicodone) immediate release tablet 5 mg, 5 mg, Oral, q4h PRN, 5 mg at 05/14/23 0709 OR oxyCODONE (Roxicodone) immediate release tablet 10 mg, 10 mg, Oral, q4h PRN, Mariza Gibson MD, 10 mg at 05/14/232045 polyethylene glycol (PEG) 3350 (Miralax) packet 17 g, 17 g, Oral, Daily PRN, Mariza Gibson MD, 17 g at 05/14/231923 polyvinyl alcohol (Liquifilm Tears) 1.4 % ophthalmic solution 1 drop, 1 drop, Both Eyes, BID PRN, Mariza Gibson MD psyllium (Metamucil) 58.12 % packet 3.4 g of fiber, 3.4 g of fiber, Oral, BID, Mariza Gibson MD, 3.4 g of fiber at 05/13/23 1335 senna-docusate sodium (Senokot-S) 8.6-50 MG tablet 2 tablet, 2 tablet, Oral, BID, Mariza Gibson MD sertraline (Zoloft) tablet 25 mg, 25 mg, Oral, Daily, Mariza Gibson MD, 25 mg at 05/14/23 1023 simethicone (Mylicon) chewable tablet 80 mg, 80 mg, Oral, PRN, Mariza Gisbon MD sodium chloride 0.9 % infusion, 5-250 mL/hr, IntraVENous, PRN, Mariza Gibson MD sodium chloride 0.9% (NS) flush 10 mL, 10 mL, IntraVENous, 2 times per day, Mariza Gibson MD, 10 mL at 05/14/232099 sodium chloride 0.9% (NS) flush 10 mL, 10 mL, IntraVENous, PRN, Mariza Gibson MD Diagnostics: CT chest w IV contrast Result Date: 05/12/2023 Patient Name: YASMIN GREEN : 1940 [facility]#: [id number] Exam Date/Time: 05/12/2023 13:44 Procedure: CT CHEST W IV CONTRAST Ordering Provider: HIGGISN STEPHEN Reason For Exam: Ovarian cancer, staging CT CHEST WITH CONTRAST CLINICAL INDICATION: Ovarian cancer staging. Recent laparotomy. TECHNIQUE: Transaxial sequence CT images of the chest were acquired after the intravenous administration of 75 mL of Isovue-370 contrast. Coronal and sagittal reformatted images were also made available for interpretation. Dose reduction was employed with automated exposure control. COMPARISON: Correlation is made to PET CT 05/10/2023 FINDINGS: Limitations: Mild motion artifact. Heart/mediastinum: Heart size is within normal limits. Thoracic aorta and pulmonary trunk are normal in caliber. A few prominent mediastinal lymph nodes without suspicious bulky adenopathy. Lungs/pleura: Small amount of dependent airspace disease involving the lung lower lobes as well as the lingula. No significant pleural effusions. No pneumothorax. On axial series 9 image 70 poorly defined 3 mm right apical nodule unchanged from PET/CT. 4 mm nodule right lower lobe on image 153 series 9 fairly similar. Central tracheobronchial tree appears patent. Visualized upper abdomen: Trace pneumoperitoneum likely postsurgical. Trace perihepatic and perisplenic ascites. Visualized portions of the liver appear fairly homogeneous. Spleen appears within normal limits. No discrete adrenal mass or nodule. Visualized kidneys appear within normal limits. Prominent and mildly enlarged retroperitoneal, right retrocrural, periceliac, and mesenteric lymph nodes. These demonstrated FDG avidity on PET/CT. Largest discrete lymph node located in the left retroperitoneum measures about 12 mm in short access series 4 image 108 Osseous structures/soft tissues: Degenerative spondylosis in the visualized spine. Suspected hemangioma in L1. Prominent left axillary and retropectoral lymph nodes measuring up to 10 mm in short access. Enlarged left supraclavicular and left lower cervical chain lymph nodes measuring 14 mm in short access. These demonstrated FDG avidity on prior PET/CT. 1. Prominent and mildly enlarged upper abdominal, right retrocrural, left axillary/left retropectoral, and left supraclavicular/left lower cervical chain lymph nodes. Largest measures up to 14 mm in short access. These demonstrated FDG activity on prior PET/CT. 2. Punctate 4 mm nodule right lower lobe and 3 mm nodule right lung apex unchanged from prior PET/CT. These are indeterminant. 3. Small amount of dependent airspace disease involving the lower lobes as well as the lingula. 4. Trace pneumoperitoneum presumably postsurgical. Report Dictated on Electronically Signed By: Ian Cee Component Date Value Ref Range Status Auto WBC 05/11/2023 16.4 (H) 3.6 - 10.7 10*3/uL Final RBC 05/11/2023 3.99 3.8 - 5.20 10*6/uL Final Hemoglobin 05/11/2023 10.8 (L) 11.7 - 16.0 g/dL Final Hematocrit 05/11/2023 33.7 (L) 35.0 - 47.0 % Final MCV 05/11/2023 84.6 80.0 - 98.0 fL Final MCH 05/11/2023 27.2 26.0 - 34.0 pg Final MCHC 05/11/2023 32.1 32.0 - 36.0 % Final RDW 05/11/2023 14.3 11.5 - 14.5 % Final Platelets 05/11/2023 502 (H) 140 - 440 10*3/uL Final MPV 05/11/2023 8.0 7.4 - 12.4 fL Final ABO Grouping 05/11/2023 A Final Antibody Screen 05/11/2023 NEG Final Rh Type 05/11/2023 POS Final ABO Grouping 05/11/2023 A Final Rh Type 05/11/2023 POS Final CREATININE 05/12/2023 0.84 0.52 - 1.04 mg/dL Final eGFR 05/12/2023 70.4 >60.0 mL/min/1.73m*2 Final Calculation based on the Chronic Kidney Disease Epidemiology Collaboration (CKD-EPI) equation refit without adjustment for race Glucose 05/12/2023 167 (H) 70 - 100 mg/dL Final ] Assessment/Plan: Yasmin Green 82 y.o. female POD #4 s/p Laparotomy BSO, Radical dissection for debulking, partial sigmoid resection with anastomosis, omentectomy Postoperative state - Doing well, vitals stable - Voiding spontaneously - Encourage ambulation and use of incentive spirometer - Pain controlled: yes - DVT Proph:SCDs - Abx: s/p cefoxitin - Diet: NPO - IVF: LR at 75 ml/hr Emesis - Has not had bowel movement since surgery but has been passing flatus - Noted to have episode of emesis overnight so made NPO with IV fluids - CT scan with PO contrast overnight, still not read this morning Anxiety - Continue home zoloft Hypothyroid - Continue home synthroid Mariza Gibson MD 05/15/2023, 6:34 AM Associated attestation - Bonifacio Higgins MD - 05/15/2023 9:23 AM EDT Patient rounded with residents. CT scan has been reviewed. A lot of stool and gas in the proximal colon. She is still passing gas her abdomen is less distended than yesterday and is soft and nontender. We will allow clear liquids only, continue to monitor. No evidence of complete bowel obstruction at this point. Pt seen at bedside for PM rounds, overall doing well. No BM today, however she continues to pass gas. Abdomen does appear slightly more distended than this morning, however patient reports that she is feeling much better than this AM. Ambulating independently. Tolerating PO. Denies n/v, CP, SOB, calf pain. Pain well controlled. Vitals: 05/14/23 1742 BP: 133/84 Pulse: 91 Resp: 18 Temp: 36.8 C (98.3 F) SpO2: 93% Gen- AOx3, NAD Heart- RRR Lungs- No increased work of breathing Abd- soft, NT, mildly distended, mild tympanic BS Incision- midline vertical C/D/I Ext- no edema or tenderness A/P: Continue bowel regimen. Overall currently stable, will monitor closely. Explained precautions for overnight care to patient and RN. If worsening nausea or starts to vomit would recommend NPO and poss CT A/P. Micah May DO 05/14/2023 8:01 PM Update: notified by RN at this time that patient with moderate emesis. Given tympanic BS, distention and new onset emesis, plan to make NPO w/ IVF and order CT A/P. Micah May DO 05/14/2023 9:25 PM Images from the original note were not included. COMBINATION MAN ONC Progress Note Date: 05/14/2023 Time: 5:03 AM Yasmin Green 82 y.o. female POD #3 s/p Laparotomy BSO, Radical dissection for debulking, partial sigmoid resection with anastomosis, omentectomy Patient seen and examined. No complaints on exam this AM. Pain is controlled, last pain med 2300. Patient is tolerating oral intake, had jello overnight and denies N/V. She is urinating. She denies any vaginal bleeding. She is ambulating without difficulty. She is passing flatus, no BM yet. She denies Fever/Chills, Chest Pain, SOB, N/V. Vitals: Vitals: 05/13/23 1315 05/13/23 2112 05/14/23 0105 05/14/23 0446 BP: (!) 142/73 126/71 (!) 142/78 137/75 BP Location: Right arm Right arm Right arm Patient Position: Lying Lying Lying Pulse: 86 86 72 78 Resp: 17 16 16 16 Temp: 36.4 C (97.6 F) 36.8 C (98.3 F) 36.1 C (97 F) 36.4 C (97.6 F) TempSrc: Temporal Temporal Temporal Temporal SpO2: 93% 93% 94% 94% Intake/Output: Current Shift: I/O this shift: In: 600 [P.O.:600] Out: - Physical Exam: Gen: NAD, alert and cooperative HEENT: Normocephalic, atraumatic, EOMI, MMM Resp: No increased work of breathing Card: regular rate Abd: soft, minimally distended, no rebound, no guarding. present BS Incisions: midline vertical clean, dry, intact Ext: No LE edema, no calf tenderness or swelling Medications: Current Facility-Administered Medications: acetaminophen (Tylenol) tablet 1,000 mg, 1,000 mg, Oral, q8h, Mariza Gibson MD, 1,000 mg at 05/13/232021 albuterol 108 (90 Base) MCG/ACT inhaler 2 puff, 2 puff, Inhalation, q4h PRN, Mariza Gibson MD enoxaparin (Lovenox) syringe 40 mg, 40 mg, SubCUTAneous, Daily, Mariza Gibson MD, 40 mg at 05/13/23 0949 heparin flush injection 100 Units, 100 Units, IntraCATHeter, PRN, Mariza Gibson MD levothyroxine (Synthroid, Levoxyl) tablet 112 mcg, 112 mcg, Oral, Daily, Mariza Gibson MD, 112 mcg at 05/13/23 0949 ondansetron ODT (Zofran-ODT) disintegrating tablet 4 mg, 4 mg, Oral, q8h PRN, 4 mg at 05/13/231848 OR ondansetron (Zofran) injection 4 mg, 4 mg, IntraVENous, q6h PRN, Mariza Gibson MD oxyCODONE (Roxicodone) immediate release tablet 5 mg, 5 mg, Oral, q4h PRN, 5 mg at 05/13/23 0128 OR oxyCODONE (Roxicodone) immediate release tablet 10 mg, 10 mg, Oral, q4h PRN, Mariza Gibson MD, 10 mg at 05/13/231848 polyethylene glycol (PEG) 3350 (Miralax) packet 17 g, 17 g, Oral, Daily PRN, Mariza Gibson MD polyvinyl alcohol (Liquifilm Tears) 1.4 % ophthalmic solution 1 drop, 1 drop, Both Eyes, BID PRN, Mariza Gibson MD psyllium (Metamucil) 58.12 % packet 3.4 g of fiber, 3.4 g of fiber, Oral, BID, Mariza Gibson MD, 3.4 g of fiber at 05/13/23 1335 senna-docusate sodium (Senokot-S) 8.6-50 MG tablet 2 tablet, 2 tablet, Oral, BID, Mariza Gibson MD sertraline (Zoloft) tablet 25 mg, 25 mg, Oral, Daily, Mariza Gibson MD, 25 mg at 05/13/23 0949 simethicone (Mylicon) chewable tablet 80 mg, 80 mg, Oral, PRN, Mariza Gibson MD sodium chloride 0.9 % infusion, 5-250 mL/hr, IntraVENous, PRN, Mariza Gibson MD sodium chloride 0.9% (NS) flush 10 mL, 10 mL, IntraVENous, 2 times per day, Mariza Gibson MD, 10 mL at 05/13/232022 sodium chloride 0.9% (NS) flush 10 mL, 10 mL, IntraVENous, PRN, Mariza Gibson MD Diagnostics: CT chest w IV contrast Result Date: 05/12/2023 Patient Name: YASMIN GREEN : 1940 Exam Date/Time: 05/12/2023 13:44 Procedure: CT CHEST W IV CONTRAST Ordering Provider: HIGGINS STEPHEN Reason For Exam: Ovarian cancer, staging CT CHEST WITH CONTRAST CLINICAL INDICATION: Ovarian cancer staging. Recent laparotomy. TECHNIQUE: Transaxial sequence CT images of the chest were acquired after the intravenous administration of 75 mL of Isovue-370 contrast. Coronal and sagittal reformatted images were also made available for interpretation. Dose reduction was employed with automated exposure control. COMPARISON: Correlation is made to PET CT 05/10/2023 FINDINGS: Limitations: Mild motion artifact. Heart/mediastinum: Heart size is within normal limits. Thoracic aorta and pulmonary trunk are normal in caliber. A few prominent mediastinal lymph nodes without suspicious bulky adenopathy. Lungs/pleura: Small amount of dependent airspace disease involving the lung lower lobes as well as the lingula. No significant pleural effusions. No pneumothorax. On axial series 9 image 70 poorly defined 3 mm right apical nodule unchanged from PET/CT. 4 mm nodule right lower lobe on image 153 series 9 fairly similar. Central tracheobronchial tree appears patent. Visualized upper abdomen: Trace pneumoperitoneum likely postsurgical. Trace perihepatic and perisplenic ascites. Visualized portions of the liver appear fairly homogeneous. Spleen appears within normal limits. No discrete adrenal mass or nodule. Visualized kidneys appear within normal limits. Prominent and mildly enlarged retroperitoneal, right retrocrural, periceliac, and mesenteric lymph nodes. These demonstrated FDG avidity on PET/CT. Largest discrete lymph node located in the left retroperitoneum measures about 12 mm in short access series 4 image 108 Osseous structures/soft tissues: Degenerative spondylosis in the visualized spine. Suspected hemangioma in L1. Prominent left axillary and retropectoral lymph nodes measuring up to 10 mm in short access. Enlarged left supraclavicular and left lower cervical chain lymph nodes measuring 14 mm in short access. These demonstrated FDG avidity on prior PET/CT. 1. Prominent and mildly enlarged upper abdominal, right retrocrural, left axillary/left retropectoral, and left supraclavicular/left lower cervical chain lymph nodes. Largest measures up to 14 mm in short access. These demonstrated FDG activity on prior PET/CT. 2. Punctate 4 mm nodule right lower lobe and 3 mm nodule right lung apex unchanged from prior PET/CT. These are indeterminant. 3. Small amount of dependent airspace disease involving the lower lobes as well as the lingula. 4. Trace pneumoperitoneum presumably postsurgical. Report Dictated on Electronically Signed By: Ian Cee Component Date Value Ref Range Status Auto WBC 05/11/2023 16.4 (H) 3.6 - 10.7 10*3/uL Final RBC 05/11/2023 3.99 3.8 - 5.20 10*6/uL Final Hemoglobin 05/11/2023 10.8 (L) 11.7 - 16.0 g/dL Final Hematocrit 05/11/2023 33.7 (L) 35.0 - 47.0 % Final MCV 05/11/2023 84.6 80.0 - 98.0 fL Final MCH 05/11/2023 27.2 26.0 - 34.0 pg Final MCHC 05/11/2023 32.1 32.0 - 36.0 % Final RDW 05/11/2023 14.3 11.5 - 14.5 % Final Platelets 05/11/2023 502 (H) 140 - 440 10*3/uL Final MPV 05/11/2023 8.0 7.4 - 12.4 fL Final ABO Grouping 05/11/2023 A Final Antibody Screen 05/11/2023 NEG Final Rh Type 05/11/2023 POS Final ABO Grouping 05/11/2023 A Final Rh Type 05/11/2023 POS Final CREATININE 05/12/2023 0.84 0.52 - 1.04 mg/dL Final eGFR 05/12/2023 70.4 >60.0 mL/min/1.73m*2 Final Calculation based on the Chronic Kidney Disease Epidemiology Collaboration (CKD-EPI) equation refit without adjustment for race Glucose 05/12/2023 167 (H) 70 - 100 mg/dL Final ] Assessment/Plan: Yasmin Green 82 y.o. female POD #3 s/p Laparotomy BSO, Radical dissection for debulking, partial sigmoid resection with anastomosis, omentectomy - Doing well, vitals stable - Catheter removed. Voiding - Encourage ambulation and use of incentive spirometer - Pain controlled: yes - DVT Proph:Lovenox +SCDs - Abx: s/p cefoxitin - Diet:General - ADAT - IVF: hep locked - Disposition: pending discussion with Dr. Higgins Anxiety - Continue home zoloft Hypothyroid - Continue home synthroid Micah May DO 05/14/2023, 5:03 AM Associated attestation - Bonifacio Higgins MD - 05/14/2023 9:59 AM EDT Patient rounded with residents. Abdomen is mildly distended but less than yesterday. Slightly tympanitic bowel sounds. Is having some nausea but no emesis. Passing gas. The abdomen is soft and nondistended. We will continue to monitor. Awaiting bowel movement before discharge. Nutrition rescreen completed. Chart reviewed. Patient to be monitored and followed by the diet vending technician. Antonella Mart DT Images from the original note were not included. COMBINATION MAN ONC Progress Note Date: 05/13/2023 Time: 6:06 AM Yasmin Green 82 y.o. female POD # 2 s/p Laparotomy BSO, Radical dissection for debulking, partial sigmoid resection with anastomosis, omentectomy Patient seen and examined. She complained of pain not well controlled as patient has been trying not to take pain meds. Encouraged to use PRN pain medications. Patient is tolerating oral intake. She is urinating. She is ambulating without difficulty. She is passing flatus. She denies Fever/Chills, Chest Pain, SOB, N/V. Vitals: Vitals: 05/12/23 1624 05/12/23 2057 05/13/23 0056 05/13/23 0509 BP: 116/60 114/63 123/65 (!) 144/74 BP Location: Right arm Right arm Right arm Right arm Patient Position: Lying Lying Lying Lying Pulse: 81 83 89 82 Resp: 14 17 17 17 Temp: 37.1 C (98.7 F) 36.4 C (97.5 F) 36.3 C (97.3 F) 36.4 C (97.6 F) TempSrc: Oral Temporal Temporal Temporal SpO2: 93% 94% 94% 94% Intake/Output: Current Shift: No intake/output data recorded. Physical Exam: Gen: NAD, resting comfortably in bed HEENT: Normocephalic, Atraumatic Resp: No increased WOB, no respiratory distress Card: Regular rate Abd: soft, mildly distended, appropriately tender, no rebound, no guarding, bowel sounds present Incisions: midline vertical clean, dry, intact Medications: Current Facility-Administered Medications: acetaminophen (Tylenol) tablet 1,000 mg, 1,000 mg, Oral, q8h, Mariza Gibson MD, 1,000 mg at 05/13/23 0529 albuterol 108 (90 Base) MCG/ACT inhaler 2 puff, 2 puff, Inhalation, q4h PRN, Mariza Gibson MD cycloSPORINE (Restasis) 0.05 % ophthalmic emulsion 1 drop, 1 drop, Both Eyes, BID PRN, Mariza Gibson MD enoxaparin (Lovenox) syringe 40 mg, 40 mg, SubCUTAneous, Daily, Mariza Gibson MD, 40 mg at 05/12/23 1235 heparin flush injection 100 Units, 100 Units, IntraCATHeter, PRN, Mariza Gibson MD levothyroxine (Synthroid, Levoxyl) tablet 112 mcg, 112 mcg, Oral, Daily, Mariza Gibson MD, 112 mcg at 05/12/23 0922 ondansetron ODT (Zofran-ODT) disintegrating tablet 4 mg, 4 mg, Oral, q8h PRN, 4 mg at 05/12/23 1355 OR ondansetron (Zofran) injection 4 mg, 4 mg, IntraVENous, q6h PRN, Mariza Gibson MD oxyCODONE (Roxicodone) immediate release tablet 5 mg, 5 mg, Oral, q4h PRN, 5 mg at 05/13/23 0128 OR oxyCODONE (Roxicodone) immediate release tablet 10 mg, 10 mg, Oral, q4h PRN, Mariza Gibson MD, 10 mg at 05/13/23 0529 polyethylene glycol (PEG) 3350 (Miralax) packet 17 g, 17 g, Oral, Daily, Mariza Gibson MD, 17 g at 05/12/23 0900 psyllium (Metamucil) 58.12 % packet 3.4 g of fiber, 3.4 g of fiber, Oral, BID, Mariza Gibson MD senna-docusate sodium (Senokot-S) 8.6-50 MG tablet 2 tablet, 2 tablet, Oral, Daily PRN, Mariza Gibson MD sertraline (Zoloft) tablet 25 mg, 25 mg, Oral, Daily, Mariza Gibson MD, 25 mg at 05/12/23 0922 simethicone (Mylicon) chewable tablet 80 mg, 80 mg, Oral, PRN, Mariza Gibson MD sodium chloride 0.9 % infusion, 5-250 mL/hr, IntraVENous, PRN, Mariza Gibson MD sodium chloride 0.9% (NS) flush 10 mL, 10 mL, IntraVENous, 2 times per day, Mariza Gibson MD, 10 mL at 05/12/232099 sodium chloride 0.9% (NS) flush 10 mL, 10 mL, IntraVENous, PRN, Mariza Gibson MD Diagnostics: CT chest w IV contrast Result Date: 05/12/2023 Patient Name: YASMIN GREEN : 1940 [facility]#: [id number] Exam Date/Time: 05/12/2023 13:44 Procedure: CT CHEST W IV CONTRAST Ordering Provider: HIGGINS STEPHEN Reason For Exam: Ovarian cancer, staging CT CHEST WITH CONTRAST CLINICAL INDICATION: Ovarian cancer staging. Recent laparotomy. TECHNIQUE: Transaxial sequence CT images of the chest were acquired after the intravenous administration of 75 mL of Isovue-370 contrast. Coronal and sagittal reformatted images were also made available for interpretation. Dose reduction was employed with automated exposure control. COMPARISON: Correlation is made to PET CT 05/10/2023 FINDINGS: Limitations: Mild motion artifact. Heart/mediastinum: Heart size is within normal limits. Thoracic aorta and pulmonary trunk are normal in caliber. A few prominent mediastinal lymph nodes without suspicious bulky adenopathy. Lungs/pleura: Small amount of dependent airspace disease involving the lung lower lobes as well as the lingula. No significant pleural effusions. No pneumothorax. On axial series 9 image 70 poorly defined 3 mm right apical nodule unchanged from PET/CT. 4 mm nodule right lower lobe on image 153 series 9 fairly similar. Central tracheobronchial tree appears patent. Visualized upper abdomen: Trace pneumoperitoneum likely postsurgical. Trace perihepatic and perisplenic ascites. Visualized portions of the liver appear fairly homogeneous. Spleen appears within normal limits. No discrete adrenal mass or nodule. Visualized kidneys appear within normal limits. Prominent and mildly enlarged retroperitoneal, right retrocrural, periceliac, and mesenteric lymph nodes. These demonstrated FDG avidity on PET/CT. Largest discrete lymph node located in the left retroperitoneum measures about 12 mm in short access series 4 image 108 Osseous structures/soft tissues: Degenerative spondylosis in the visualized spine. Suspected hemangioma in L1. Prominent left axillary and retropectoral lymph nodes measuring up to 10 mm in short access. Enlarged left supraclavicular and left lower cervical chain lymph nodes measuring 14 mm in short access. These demonstrated FDG avidity on prior PET/CT. 1. Prominent and mildly enlarged upper abdominal, right retrocrural, left axillary/left retropectoral, and left supraclavicular/left lower cervical chain lymph nodes. Largest measures up to 14 mm in short access. These demonstrated FDG activity on prior PET/CT. 2. Punctate 4 mm nodule right lower lobe and 3 mm nodule right lung apex unchanged from prior PET/CT. These are indeterminant. 3. Small amount of dependent airspace disease involving the lower lobes as well as the lingula. 4. Trace pneumoperitoneum presumably postsurgical. Report Dictated on Electronically Signed By: Ian Cee Component Date Value Ref Range Status Auto WBC 05/11/2023 16.4 (H) 3.6 - 10.7 10*3/uL Final RBC 05/11/2023 3.99 3.8 - 5.20 10*6/uL Final Hemoglobin 05/11/2023 10.8 (L) 11.7 - 16.0 g/dL Final Hematocrit 05/11/2023 33.7 (L) 35.0 - 47.0 % Final MCV 05/11/2023 84.6 80.0 - 98.0 fL Final MCH 05/11/2023 27.2 26.0 - 34.0 pg Final MCHC 05/11/2023 32.1 32.0 - 36.0 % Final RDW 05/11/2023 14.3 11.5 - 14.5 % Final Platelets 05/11/2023 502 (H) 140 - 440 10*3/uL Final MPV 05/11/2023 8.0 7.4 - 12.4 fL Final ABO Grouping 05/11/2023 A Final Antibody Screen 05/11/2023 NEG Final Rh Type 05/11/2023 POS Final ABO Grouping 05/11/2023 A Final Rh Type 05/11/2023 POS Final CREATININE 05/12/2023 0.84 0.52 - 1.04 mg/dL Final eGFR 05/12/2023 70.4 >60.0 mL/min/1.73m*2 Final Calculation based on the Chronic Kidney Disease Epidemiology Collaboration (CKD-EPI) equation refit without adjustment for race Glucose 05/12/2023 167 (H) 70 - 100 mg/dL Final ] Assessment/Plan: Yasmin Green 82 y.o. female POD #2 s/p Laparotomy BSO, Radical dissection for debulking, partial sigmoid resection with anastomosis, omentectomy Postoperative state - Doing well, vitals stable - Catheter removed, has not yet voided - Encourage ambulation and use of incentive spirometer - Pain controlled: yes - DVT Proph: SCDs while in bed, Lovenox - Abx: s/p Cefoxitin - Diet: General - IVF: Hep lock Anxiety - Continue home zoloft Hypothyroid - Continue home synthroid Mariza Gibson MD 05/13/2023, 6:06 AM Associated attestation - Bonifacio Higgins MD - 05/13/2023 1:59 PM EDT Patient rounded with residents, passing gas. Abdomen is mildly distended but soft. Continue postoperative care. Images from the original note were not included. [facility] Progress Note Date: 05/12/2023 Time: 5:53 AM Yasmin Reyes y.o. female POD # 1 s/p Laparotomy BSO, Radical dissection for debulking, partial sigmoid resection with anastomosis, omentectomy Patient seen and examined. She complained of some gas pains this morning. Pain is controlled. Patient is tolerating oral intake. Montoya removed this morning, has not yet voided. She has not yet ambulated. She is not passing flatus. She denies Fever/Chills, Chest Pain, SOB, N/V. Vitals: Vitals: 05/11/23 1716 05/11/232 05/12/23 0103 05/12/23 0518 BP: 129/73 124/60 121/62 120/61 BP Location: Right arm Right arm Right arm Right arm Patient Position: Sitting Lying Lying Lying Pulse: 80 91 75 74 Resp: 16 14 12 20 Temp: 36.6 C (97.8 F) 37 C (98.6 F) 36.5 C (97.7 F) 36.2 C (97.2 F) TempSrc: Temporal Temporal Temporal Temporal SpO2: 93% 94% 94% 95% Intake/Output: Current Shift: I/O this shift: In: - Out: 200 [Urine:200] Physical Exam: Gen: NAD, resting comfortably in bed HEENT: Normocephalic, Atraumatic Resp: No increased WOB, no respiratory distress Card: Regular rate Abd: soft, appropriately tender to palpation, moderately distended, no rebound, no guarding, hypoactive bowel sounds Incisions: Midline vertical incision covered with clean dressing Ext: SCD in place Medications: Current Facility-Administered Medications: acetaminophen (Tylenol) tablet 1,000 mg, 1,000 mg, Oral, q8h, Mariza Gibson MD, 1,000 mg at 05/12/23 0422 albuterol 108 (90 Base) MCG/ACT inhaler 2 puff, 2 puff, Inhalation, q4h PRN, Mariza Gibson MD cycloSPORINE (Restasis) 0.05 % ophthalmic emulsion 1 drop, 1 drop, Both Eyes, BID PRN, Mariza Gibson MD enoxaparin (Lovenox) syringe 40 mg, 40 mg, SubCUTAneous, Daily, Mariza Gibson MD heparin flush injection 100 Units, 100 Units, IntraCATHeter, PRN, Mariza Gibson MD levothyroxine (Synthroid, Levoxyl) tablet 112 mcg, 112 mcg, Oral, Daily, Mariza Gibson MD, 112 mcg at 05/11/23 1711 ondansetron ODT (Zofran-ODT) disintegrating tablet 4 mg, 4 mg, Oral, q8h PRN OR ondansetron (Zofran) injection 4 mg, 4 mg, IntraVENous, q6h PRN, Mariza Gibson MD oxyCODONE (Roxicodone) immediate release tablet 5 mg, 5 mg, Oral, q4h PRN, 5 mg at 05/11/23 8154 OR oxyCODONE (Roxicodone) immediate release tablet 10 mg, 10 mg, Oral, q4h PRN, Mariza Gibson MD polyethylene glycol (PEG) 3350 (Miralax) packet 17 g, 17 g, Oral, Daily, Mariza Gibson MD, 17 g at 05/11/23 1711 psyllium (Metamucil) 58.12 % packet 3.4 g of fiber, 3.4 g of fiber, Oral, BID, Mariza Gibson MD senna-docusate sodium (Senokot-S) 8.6-50 MG tablet 2 tablet, 2 tablet, Oral, Daily PRN, Mariza Gibson MD sertraline (Zoloft) tablet 25 mg, 25 mg, Oral, Daily, Mariza Gibson MD, 25 mg at 05/11/23 1706 simethicone (Mylicon) chewable tablet 80 mg, 80 mg, Oral, PRN, Mariza Gibson MD sodium chloride 0.9 % infusion, 5-250 mL/hr, IntraVENous, PRN, Mariza Gibson MD sodium chloride 0.9% (NS) flush 10 mL, 10 mL, IntraVENous, 2 times per day, Mariza Gibson MD sodium chloride 0.9% (NS) flush 10 mL, 10 mL, IntraVENous, PRN, Mariza Gibson MD Diagnostics: No results found. Labs: Admission on 05/11/2023 Component Date Value Ref Range Status Auto WBC 05/11/2023 16.4 (H) 3.6 - 10.7 10*3/uL Final RBC 05/11/2023 3.99 3.8 - 5.20 10*6/uL Final Hemoglobin 05/11/2023 10.8 (L) 11.7 - 16.0 g/dL Final Hematocrit 05/11/2023 33.7 (L) 35.0 - 47.0 % Final MCV 05/11/2023 84.6 80.0 - 98.0 fL Final MCH 05/11/2023 27.2 26.0 - 34.0 pg Final MCHC 05/11/2023 32.1 32.0 - 36.0 % Final RDW 05/11/2023 14.3 11.5 - 14.5 % Final Platelets 05/11/2023 502 (H) 140 - 440 10*3/uL Final MPV 05/11/2023 8.0 7.4 - 12.4 fL Final ABO Grouping 05/11/2023 A Final Antibody Screen 05/11/2023 NEG Final Rh Type 05/11/2023 POS Final ABO Grouping 05/11/2023 A Final Rh Type 05/11/2023 POS Final ] Assessment/Plan: Yasmin Green 82 y.o. female POD #1 s/p Laparotomy BSO, Radical dissection for debulking, partial sigmoid resection with anastomosis, omentectomy Postoperative state - Doing well, vitals stable - Catheter removed., has not yet voided - Encourage ambulation and use of incentive spirometer - Pain controlled: yes - DVT Proph: SCDs while in bed, Lovenox - Abx: s/p Cefoxitin - Diet: General - IVF: Hep lock Anxiety - Continue home zoloft Hypothyroid - Continue home synthroid Mariza Gibson MD 05/12/2023, 5:53 AM Associated attestation - Bonifacio Higgins MD - 05/12/2023 11:22 AM EDT Patient rounded with residents. Doing well. Tolerating p.o. Abdomen is soft and nondistended. I did discuss surgical findings. Awaiting return of bowel function. documented in this encounter [facility] 05-14-2023 Nurse Note Patient had unmeasured but seeming significant amount of emesis. Dr. Micah May notified via Secure Chat. See new orders. [facility] 05-13-2023 Plan of care note Problem: Pain - Adult Goal: Verbalizes/displays adequate comfort level or baseline comfort level Outcome: Progressing Problem: Safety - Adult Goal: Free from fall injury Outcome: Progressing Problem: Discharge Planning Goal: Discharge to home or other facility with appropriate resources Outcome: Progressing Problem: Chronic Conditions and Co-morbidities Goal: Patient's chronic conditions and co-morbidity symptoms are monitored and maintained or improved Outcome: Progressing Problem: Knowledge Deficit Goal: Patient/family/caregiver demonstrates understanding of disease process, treatment plan, medications, and discharge instructions Outcome: Progressing Problem: Potential for Compromised Skin Integrity Goal: Skin Integrity is Maintained or Improved Outcome: Progressing Goal: Nutritional status is improving Outcome: Progressing Problem: Urinary Incontinence Goal: Perineal skin integrity is maintained or improved Outcome: Progressing [facility] 05-13-2023 Note Care Management Prog ress Note 05/11- Lap BSO, debulking, partial sigmoid resection -Reg diet- MR brain ordered Discharge plan- Home with home care- [facility] will follow Discharge Milestones and Delays Expected Date/Time: 05/15/[address] discharge order Complete med reconciliation Case mgmt discharge readiness Clinical Stability Diagnsotic Workup Expected Discharge History Expected Date/Time Set By Reviewed At 05/15/2023 Amina Omalley RN 05/13/2023 8:47 AM 05/15/2023 Amina Omalley RN 05/12/2023 8:37 AM 05/15/2023 Mariza Gibson MD 05/11/2023 2:27 PM 05/15/2023 Bonifacio Higgins MD 05/11/2023 9:26 AM Length of Stay (Days): 2 GMLOS: No GMLOS Documented [facility] 05-13-2023 Note Formatting of this n ote is different from the original. Images from the original note were not included. Care Management Progress Note 05/11- Lap BSO, debulking, partial sigmoid resection -Reg diet- MR brain ordered Discharge plan- Home with home care- [facility] will follow Discharge Milestones and Delays Expected Date/Time: 05/15/[address] discharge order Complete med reconciliation Case mgmt discharge readiness Clinical Stability Diagnsotic Workup Expected Discharge History Expected Date/Time Set By Reviewed At 05/15/2023 Amina Omalley RN 05/13/2023 8:47 AM 05/15/2023 Amina Omalley RN 05/12/2023 8:37 AM 05/15/2023 Mariza Gibson MD 05/11/2023 2:27 PM 05/15/2023 Bonifacio Higgins MD 05/11/2023 9:26 AM Length of Stay (Days): 2 GMLOS: No GMLOS Documented [facility] 05-13-2023 Note Formatting of this n ote is different from the original. Images from the original note were not included. Care Management Progress Note 05/11- Lap BSO, debulking, partial sigmoid resection -Reg diet- MR brain ordered Discharge plan- Home with home care- [facility] will follow Discharge Milestones and Delays Expected Date/Time: 05/15/[address] discharge order Complete med reconciliation Case mgmt discharge readiness Clinical Stability Diagnsotic Workup Expected Discharge History Expected Date/Time Set By Reviewed At 05/15/2023 Amina Omalley RN 05/13/2023 8:47 AM 05/15/2023 Amina Omalley RN 05/12/2023 8:37 AM 05/15/2023 Mariza Gibson MD 05/11/2023 2:27 PM 05/15/2023 Bonifcaio Higgins MD 05/11/2023 9:26 AM Length of Stay (Days): 2 GMLOS: No GMLOS Documented [facility] 05-12-2023 Note Patient is requestin g [facility] referral for [facility]. Referral to be placed in [facility] and will follow up regarding ability to accept. [facility] 05-12-2023 Note Formatting of this n ote might be different from the original. Patient is requesting [facility] referral for hhc at [facility]. Referral to be placed in [facility] and will follow up regarding ability to accept. [facility] 05-12-2023 Note Formatting of this n ote might be different from the original. Patient is requesting [facility] referral for hhc at ms. Referral to be placed in [facility] and will follow up regarding ability to accept. T [facility] 05-12-2023 Note Formatting of this n ote might be different from the original. Patient Choice Patient Name: YASMIN GREEN Date of : 1940 All Providers Sent Referral Name: PollitoIngles Phone: [phone] Address: [address] [place] [address] [facility] 05-12-2023 Note Formatting of this n ote might be different from the original. Patient Choice Patient Name: YASMIN GREEN Date of : 1940 All Providers Sent Referral Name: PollitoIngles Phone: [phone] Address: [address] [place], [place] [id number] T [facility] 05-12-2023 Note Formatting of this n ote might be different from the original. Care Managment Initial Assessment Date: 05/12/2023 Patient Name: Yasmin Green : 1940 Patient Information Source of Information: Patient Cognition/Language: WFL - Within Functional Limits Permission given to speak with patient provider relations representative/caregiver as indicated: Confirmation of Payer with patient/family: Yes Payer Name: MEDICARE : No Confirmation of Primary Care Physician: Confirmed PCP Name: Dr Jonathan Vanegas Seen in last 2 years?: Yes Primary Caregiver: Self If assistance needed, confirmed caregiver ready, willing and able to care for patient at discharge: Confirmed with: Living Arrangements Current Residence: House Number of Floors 2 Number of Entry Steps: 5 or more (5 steps) Bed/Bath Levels: Facility: Facility Name: Plan to Return: Lives with: Spouse/significant other Support Systems: Spouse/significant other, Family members Activities of Daily Living Ambulation: Independent Bathing/Dressing: Independent Elimination/Continence/Toileting: Independent Feeding: Independent Who Assists with Activities of Daily Living: Instrumental Activities of Daily Living Prescription Coverage: Yes Pharmacy Used: [facility] in [facility] Medication Management: Independent Transportation/Shopping: Independent Transportation Mode: Car Needs Assistance with Transportation at Discharge: No Meal Preparation: Independent Laundry/Cleaning: Independent Finances/Bill Paying: Independent Communication: Independent Types of Care Services/Equipment Utilized Care Services: Dialysis Type: Durable Medical Equipment: Cane (L knee brace- cane for long distances) Patient's Goal/Discharge Plan Patient expects to be discharged to: home with home care- interested in [facility]- HC liaison notifed Discharge Planning Actions: Continue to follow Patient's Choice Rights and [employer] and Collaborative Relationships Disclosed as Indicated for Post-Acute Care: Interdisciplinary Team Engagement: Home Health Care Social Work Referral for: Additional Information: Met with patient and husb at bedside -Dtr on speaker phone- reviewed discharge plan, introduced self and role. Patient from home independent with husb. Patient states has insurance and able to afford medications. Help available at home and family will provide transportation home. Interested in follow up visit from home care- has used [facility] in the past- HC liaison notified Plan -Home with home care- when medically stable. [facility] 05-12-2023 Note Formatting of this n ote might be different from the original. Care Managment Initial Assessment Date: 05/12/2023 Patient Name: Yasmin Green : 1940 Patient Information Source of Information: Patient Cognition/Language: WFL - Within Functional Limits Permission given to speak with patient provider relations representative/caregiver as indicated: Confirmation of Payer with patient/family: Yes Payer Name: MEDICARE : No Confirmation of Primary Care Physician: Confirmed PCP Name: Dr Jonathan Vanegas Seen in last 2 years?: Yes Primary Caregiver: Self If assistance needed, confirmed caregiver ready, willing and able to care for patient at discharge: Confirmed with: Living Arrangements Current Residence: House Number of Floors 2 Number of Entry Steps: 5 or more (5 steps) Bed/Bath Levels: Facility: Facility Name: Plan to Return: Lives with: Spouse/significant other Support Systems: Spouse/significant other, Family members Activities of Daily Living Ambulation: Independent Bathing/Dressing: Independent Elimination/Continence/Toileting: Independent Feeding: Independent Who Assists with Activities of Daily Living: Instrumental Activities of Daily Living Prescription Coverage: Yes [facility]acy Used: [facility] Medication Management: Independent Transportation/Shopping: Independent Transportation Mode: Car Needs Assistance with Transportation at Discharge: No Meal Preparation: Independent Laundry/Cleaning: Independent Finances/Bill Paying: Independent Communication: Independent Types of Care Services/Equipment Utilized Care Services: Dialysis Type: Durable Medical Equipment: Cane (L knee brace- cane for long distances) Patient's Goal/Discharge Plan Patient expects to be discharged to: home with home care- interested in [facility]- HC liaison notifed Discharge Planning Actions: Continue to follow Patient's Choice Rights and [employer] and Collaborative Relationships Disclosed as Indicated for Post-Acute Care: Interdisciplinary Team Engagement: Home Health Care Social Work Referral for: Additional Information: Met with patient and husb at bedside -Dtr on speaker phone- reviewed discharge plan, introduced self and role. Patient from home independent with husb. Patient states has insurance and able to afford medications. Help available at home and family will provide transportation home. Interested in follow up visit from home care- has used [facility] in the past- HC liaison notified Plan -Home with home care- when medically stable. T [facility] 05-12-2023 Nurse Note Montoya removed at 0440 per order. 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 Anesthesia Post Evaluation Patient location during evaluation: PACU Patient participation: waiting for patient participation Level of consciousness: responsive to light touch Pain management: adequate Airway patency: patent Dental Injury: no Cardiovascular status: acceptable Respiratory status: acceptable Hydration status: acceptable Nausea/Vomiting: controlled No notable events documented. Patient can be discharged once all PACU criteria has been met. 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]) Surgeons: Bonifacio Higgins MD Responsible Provider: SARAH Sullivan CRNA Anesthesia Type: general, regional ASA Status: 3 Anesthesia Type: general, regional Vitals Value Taken Time BP 128/60 05/11/23 1247 Temp 97 05/11/23 1247 Pulse 80 05/11/23 1247 Resp 16 05/11/23 1247 SpO2 98 05/11/23 1247 Anesthesia Post Evaluation Patient location during evaluation: PACU Patient participation: waiting for patient participation Level of consciousness: responsive to light touch Pain score: 0 Pain management: adequate Airway patency: patent Cardiovascular status: acceptable Respiratory status: acceptable Hydration status: acceptable No notable events documented. MIPS #[id number] PONV Patient received an inhalational anesthetic (4554F) Patient exhibits three or more risk factors for PONV (4556F) Patient received at aset 2 prophylactic Rx PONV anti-emtic agents of different classes preop and/or intraop (G9775) MIPS # 424 Perioperative Temperature Management Anesthesia time was 60 minutes or longer (4255F) Anesthesai administered was General (inhalational or TIVA) or Neuraxial block (X0424) At least one body temperature greater than 95.8F/35.5C achieved within the 30 mins immediately prior to or the 15 minutes immediately following anesthesia end time (G9771) MIPS #477 Multimodal Pain Management Not emergent case Patient was administered multimodal pain management (two or more drugs and/or interventions excluding systemic opioids) in the periopeartive period occurring at some time between 6 hours prior to anesthesia start time until discharged from PACU (G2148) MIPS #404 Anesthesiology Smoking Abstinence The patient is not a current smoker (e.g. cigarette, cigar, pipe, e-cigarette/vaping/marijuana) If no stop here (XX404) I completed my handoff to the receiving clinician during which we: 1. Identified the patient 2. Identified the responsible provider 3. Reviewed the pertinent medical history 4. Discussed the surgical course 5. Reviewed intra-op anesthesia management and issues during anesthesia 6. Set expectations for post-procedure period 7. Allowed opportunity for questions and acknowledgement of understanding. [facility] 05-11-2023 Note Formatting of this n ote might be different from the original. Patient family/visitor updated by RN at this time. [facility] 05-11-2023 Note Formatting of this n ote might be different from the original. Patient family/visitor updated by RN at this time. [facility] 05-11-2023 Note Peripheral Block Time Out: 05/11/2023 10:45 AM Patient location during procedure: Procedural Start time: 05/11/2023 10:45 AM End time: 05/11/2023 10:50 AM Reason for block: at surgeon's request and post-op pain management Staffing Performed: GOLD BURNISHER Resident/GOLD BURNISHER: SARAH Cardona CRNA Preanesthetic Checklist Completed: patient identified, IV checked, site marked, risks and benefits discussed, surgical consent, monitors and equipment checked, pre-op evaluation and timeout performed Region: [place] Primary: TAP (Bupivacaine 0.375%/ Epi 1:200,000/ Dex 0.1mg/mL 40ml divided evenly bilateral) Secondary: Upper rectus (Bupivacaine 0.375%/ Epi 1:200,000/ Dex 0.1mg/mL 20ml divided evenly bilateral) Peripheral Block Patient position: supine Prep: ChloraPrep Patient monitoring: heart rate, strategic sourcing consultant, continuous pulse ox and continuous capnometry O2: ETT/LMA Laterality: bilateral Injection technique: single-shot Guidance: ultrasound guided -image retained in chart, tip of the needle identified by ultraound during injection. Needle Needle: 21G X 110 mm Additional Notes 05/11/2023 10:45 AM Assessment Injection assessment: negative aspiration for heme, no paresthesia on injection and incremental injection Heart rate change: no Slow fractionated injection: yes Required Documentation: Relevant anatomy identified (Nerves, Vessels, Muscles), Negative for blood on aspiration, Local anesthetic injected incrementally with intermittent aspiration every 5 mL, Normal resistance with injection, No EKG changes noted, No symptoms of toxicity, Local anesthetic spread visualized around nerves or plane. and Local anesthetic injected without difficultyMedications [id number]-yzrgitctwzd-lbderzp rine (TAP) syringe - Injection 40 mL - 05/11/2023 10:45:00 AM bupivacaine liposome (Exparel) 1.3 % injection - Injection 20 mL - 05/11/2023 10:45:00 AM [facility] 05-11-2023 Note Airway Date/Time: 05/11/2023 10:50 AM Urgency: scheduled Airway not difficult General Information and Staff Patient location during procedure: Procedural Anesthesiologist: Hugh Marquez MD Resident/GOLD BURNISHER: SARAH Sullivan CRNA Performed: SRNA Performed by: SARAH Sullivan CRNA Authorized by: SARAH Sullivan CRNA Indications and Patient Condition Indications for airway management: anesthesia Sedation level: Asleep Preoxygenated: yes Patient position: sniffing Mask difficulty assessment: 1 - vent by mask Final Airway Details Final airway type: endotracheal airway Successful airway: ETT Cuffed: yes Successful intubation technique: direct laryngoscopy Facilitating devices/methods: intubating stylet Endotracheal tube insertion site: oral Blade: Fran Blade size: #3 ETT size (mm): 7.0 Cormack-Lehane Classification: grade I - full view of glottis Placement verified by: chest auscultation and capnometry Measured from: lips ETT to lips (cm): 22 Number of attempts at approach: 1 Ventilation between attempts: BVM Additional Comments Atraumatic, easy mask ventilation, teeth as preop [facility] 05-11-2023 Note H&P reviewed. The pa tieyogesh was examined and there are no changes to the H&P. [facility] 05-11-2023 Note Formatting of this n ote might be different from the original. Date of surgery 05/11/2023 Preoperative diagnosis stage IVb ovarian cancer, rectovaginal fistula Postoperative diagnosis ovarian cancer, secondary malignancy of sigmoid colon, secondary malignancy of omentum, secondary malignancy of pelvic peritoneum Surgery was laparotomy with BSO for an ovarian malignancy with radical dissection for debulking, partial sigmoid resection with anastomosis. Omentectomy. Surgeon Ronaldo Anesthesia General description of findings there was a large mass involving the left tube and ovary that was complex down to the sigmoid colon and causing a complex fistula in the vesicovaginal space into the vagina. There was no disease noted in the upper abdomen. The omentum was normal except for some tumor involving the omentum which was stuck to the mass in the pelvis. At the completion of surgery all intra-abdominal disease had been removed. Description of operation Patient identified brought to the operating room and after ministration of general anesthesia underwent abdominal perineal vaginal prep and drape Montoya catheter was inserted a sponge check was placed in the vagina and she was prepped and draped in a lithotomy Cixi timeout had been performed. Using a knife a lower midline incision was made sharp divide down to the skin with a knife followed by Bovie cautery to open the skin up above the umbilicus, opened up the fascia and the peritoneal cavity was opened using Metzenbaum scissors. Omental adhesions to the intra-abdominal wall were sharply lysed lysed as well as omental adhesions to the mass in the pelvis. The tail of the omentum was left on the mass using the Enseal device. The Jeffrey retractor was then placed followed by the Bookwalter retractor. Attention was first turned to the right pelvic sidewall. Right pelvic sidewall was opened, the right ureter identified. Attention then turned to the left pelvic sidewall, the left pelvic sidewall was opened the left ureter identified in the sigmoid colon was mobilized up. Using sharp as well as blunt dissection the mass was dissected off the left pelvic sidewall this included removal of a large amount of the peritoneum, the mass was complex to the sigmoid colon. At approximately the pelvic brim the mesentery of the sigmoid colon was opened, using the Enseal device the colon was transected at this point. Using the Enseal device the sigmoid colon mesentery was resected down below the mass where was complexed onto the ovary as well as onto the vagina. The mass was further dissected off and brought up out of the cul-de-sac. It was also dissected off the bladder. This then allowed the distal part of the colon to be cut using the SKYE 80 device and the mesentery was further taken down using the Enseal device. This remove the large ovary and sigmoid colon en bloc up. Several bits of omentum that were stuck to the mass by the bladder also resected along with this resection. The fistula area had been completely uncovered and was draining nicely into the vagina. It was copiously irrigated. A functional uepd-ot-wuzs anastomosis was then performed of the sigmoid colon using the SKYE device making a small stab incision in the proximal and distal limbs of the colon and using the SKYE-75 to create a anastomosis. The colpotomy incision was closed using a running 3-0 PDS on the mucosal followed by imbricating sutures of 3-0 silk. Infracolic omentectomy was then performed using the Enseal device. No other disease was noted in the abdomen or pelvis, the abdomen pelvis was copiously irrigated. It should be noted that during the dissection of the mass off the intra-abdominal wall a small amount of pus and stool was leaked into the pelvis as we uncovered the fistula site. This was copiously irrigated out and additional antibiotics with Flagyl were given. The fascia was then closed using a running #1 PDS in a loop mass closure system followed by subcutaneous interrupted #1 in the subcutaneous tissue of PDS followed by running 3-0 Monocryl and Steri-Strips. She was taken to cover room in stable condition with an EBL about 200 cc and clear urine in the Montoya bag. This is in the operative note on Spencer bowman bye [facility] 05-11-2023 Note Formatting of this n ote is different from the original. 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 (Active) Catheter Indications Short-term following a surgical procedure (i.e. Urological or Gynecological) or active irrigation 05/11/23 1245 Site Assessment Skin intact;Clean 05/11/23 1245 Collection Container Standard drainage bag 05/11/23 1245 Securement Method Securing device 05/11/23 1245 Catheter Best Practices Drainage tube clipped to bed;Catheter secured to thigh;Tamper seal intact;Bag below bladder;Bag not on floor;Lack of dependent loop in tubing;Drainage bag less than half full 05/11/23 1245 Catheter Status Draining 05/11/23 1245 Specimens ID Source Type Tests Collected By Collected At Frozen? Priority Lab ID 1 Ovary, Left Tissue TISSUE EXAM Bonifacio Higgins MD 05/11/23 1147 No Routine Description: LEFT OVARY, PORTION OF SIGMOID 2 Abdominal Wall Tissue TISSUE EXAM Bonifacio Higgins MD 05/11/23 1151 Routine Description: ANTERIOR PELVIC BIOPSY 3 Ovary, Right Tissue TISSUE EXAM Bonifacio Higgins MD 05/11/23 1157 Routine Description: RIGHT FALLOPIAN TUBE AND OVARY 4 Omentum, Biopsy Tissue TISSUE EXAM Bonifacio Higgins MD 05/11/23 1202 Routine Description: OMENTUM Implants Staff: Prepleater: Chinedu Yanez RN Relief Prepleater: Jennifer Flor RN Scrub Person: Geraldo Holley RN Sacul to Circ: Erika Grimes RN Findings: see op note Complications: Specimens CollecteNone; patient tolerated the procedure well.d: Order Name Source Comment Collection Info Order Time CBC (HEMOGRAM) Blood, Venous Collected By: Andria Perez RN 05/11/2023 9:26 AM BLOOD TYPE AND SCREEN GEL Blood, Venous HOLD. 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 Collected By: Bonifacio Higgins MD 05/11/2023 11:47 AM Wound Class: Class III: Contaminated Blood Products: None Prophylactic Antibiotics: Procedure appropriate prophylactic antibiotic(s) given within 1 hour of surgical incision (two hours if receiving Vancomycin or flouroquinolone) [facility] 05-11-2023 Note Formatting of this n ote might be different from the original. Date of surgery 05/11/2023 Preoperative diagnosis stage IVb ovarian cancer, rectovaginal fistula Postoperative diagnosis ovarian cancer, secondary malignancy of sigmoid colon, secondary malignancy of omentum, secondary malignancy of pelvic peritoneum Surgery was laparotomy with BSO for an ovarian malignancy with radical dissection for debulking, partial sigmoid resection with anastomosis. Omentectomy. Surgeon Ronaldo Anesthesia General description of findings there was a large mass involving the left tube and ovary that was complex down to the sigmoid colon and causing a complex fistula in the vesicovaginal space into the vagina. There was no disease noted in the upper abdomen. The omentum was normal except for some tumor involving the omentum which was stuck to the mass in the pelvis. At the completion of surgery all intra-abdominal disease had been removed. Description of operation Patient identified brought to the operating room and after ministration of general anesthesia underwent abdominal perineal vaginal prep and drape Montoya catheter was inserted a sponge check was placed in the vagina and she was prepped and draped in a lithotomy Cixi timeout had been performed. Using a knife a lower midline incision was made sharp divide down to the skin with a knife followed by Bovie cautery to open the skin up above the umbilicus, opened up the fascia and the peritoneal cavity was opened using Metzenbaum scissors. Omental adhesions to the intra-abdominal wall were sharply lysed lysed as well as omental adhesions to the mass in the pelvis. The tail of the omentum was left on the mass using the Enseal device. The Jeffrey retractor was then placed followed by the Bookwalter retractor. Attention was first turned to the right pelvic sidewall. Right pelvic sidewall was opened, the right ureter identified. Attention then turned to the left pelvic sidewall, the left pelvic sidewall was opened the left ureter identified in the sigmoid colon was mobilized up. Using sharp as well as blunt dissection the mass was dissected off the left pelvic sidewall this included removal of a large amount of the peritoneum, the mass was complex to the sigmoid colon. At approximately the pelvic brim the mesentery of the sigmoid colon was opened, using the Enseal device the colon was transected at this point. Using the Enseal device the sigmoid colon mesentery was resected down below the mass where was complexed onto the ovary as well as onto the vagina. The mass was further dissected off and brought up out of the cul-de-sac. It was also dissected off the bladder. This then allowed the distal part of the colon to be cut using the SKYE 80 device and the mesentery was further taken down using the Enseal device. This remove the large ovary and sigmoid colon en bloc up. Several bits of omentum that were stuck to the mass by the bladder also resected along with this resection. The fistula area had been completely uncovered and was draining nicely into the vagina. It was copiously irrigated. A functional pitt-se-uzly anastomosis was then performed of the sigmoid colon using the SKYE device making a small stab incision in the proximal and distal limbs of the colon and using the SKYE-75 to create a anastomosis. The colpotomy incision was closed using a running 3-0 PDS on the mucosal followed by imbricating sutures of 3-0 silk. Infracolic omentectomy was then performed using the Enseal device. No other disease was noted in the abdomen or pelvis, the abdomen pelvis was copiously irrigated. It should be noted that during the dissection of the mass off the intra-abdominal wall a small amount of pus and stool was leaked into the pelvis as we uncovered the fistula site. This was copiously irrigated out and additional antibiotics with Flagyl were given. The fascia was then closed using a running #1 PDS in a loop mass closure system followed by subcutaneous interrupted #1 in the subcutaneous tissue of PDS followed by running 3-0 Monocryl and Steri-Strips. She was taken to cover room in stable condition with an EBL about 200 cc and clear urine in the Montoya bag. This is in the operative note on Spencer Green gracie mehta [facility] 05-11-2023 Note Formatting of this n ote is different from the original. 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 (Active) Catheter Indications Short-term following a surgical procedure (i.e. Urological or Gynecological) or active irrigation 05/11/23 1245 Site Assessment Skin intact;Clean 05/11/23 1245 Collection Container Standard drainage bag 05/11/23 1245 Securement Method Securing device 05/11/23 1245 Catheter Best Practices Drainage tube clipped to bed;Catheter secured to thigh;Tamper seal intact;Bag below bladder;Bag not on floor;Lack of dependent loop in tubing;Drainage bag less than half full 05/11/23 1245 Catheter Status Draining 05/11/23 1245 Specimens ID Source Type Tests Collected By Collected At Frozen? Priority Lab ID 1 Ovary, Left Tissue TISSUE EXAM Bonifacio Higgins MD 05/11/23 1147 No Routine Description: LEFT OVARY, PORTION OF SIGMOID 2 Abdominal Wall Tissue TISSUE EXAM Bonifacio Higgins MD 05/11/23 1151 Routine Description: ANTERIOR PELVIC BIOPSY 3 Ovary, Right Tissue TISSUE EXAM Bonifacio Higgins MD 05/11/23 1157 Routine Description: RIGHT FALLOPIAN TUBE AND OVARY 4 Omentum, Biopsy Tissue TISSUE EXAM Bonifacio Higgins MD 05/11/23 1202 Routine Description: OMENTUM Implants Staff: Prepleater: Chinedu Yanez RN Relief Prepleater: Jennifer Flor RN Scrub Person: Geraldo Holley RN Sacul to Circ: Erika Grimes RN Findings: see op note Complications: Specimens CollecteNone; patient tolerated the procedure well.d: Order Name Source Comment Collection Info Order Time CBC (HEMOGRAM) Blood, Venous Collected By: Andria Perez RN 05/11/2023 9:26 AM BLOOD TYPE AND SCREEN GEL Blood, Venous HOLD. 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 Collected By: Bonifacio Higgins MD 05/11/2023 11:47 AM Wound Class: Class III: Contaminated Blood Products: None Prophylactic Antibiotics: Procedure appropriate prophylactic antibiotic(s) given within 1 hour of surgical incision (two hours if receiving Vancomycin or flouroquinolone) [facility] 05-11-2023 Attending History and physical note H&P reviewed. The patient was examined and there are no changes to the H&P. Source Note - Bonifacio Higgins MD - 05/09/2023 1:30 PM EDT Chief complaint; neck mass, fatigue, gas and stool through vagina HPI: Yasmin Green is a pleasant 82 y.o. female who presents in consultation from Dr. Heath for further evaluation and management of what appears to be a stage IVb ovarian cancer. She initiallypresented with in February of this year noted a mass on the base of her left neck. This did not cause any pain or discomfort but gradually got bigger. She is also noted over the last 2 to 3 months increasing left lower quadrant pain, described as a dull ache in the left lower quadrant, has been associated with significant bowel difficulties to include diarrhea and episodes of having difficult bowel movements. She has undergone multiple colonoscopies due to a history of benign colon polyps. Last colonoscopy was 4 years ago and she was told that it was normal. Over the last few weeks she has been noticing a bloody brown vaginal drainage. She also thinks that she may be passing gas through the vagina. She does admit to fatigue as well as decreased appetite. Denies any nausea or vomiting. Has lost about 20 pounds over the last couple of months. 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 Her CA125 level is about 2000. Patient has a history of a hysterectomy in the remote past for benign fibroids. Denies any other history of malignancies. Is here today with her and her daughter. Past Medical History: Diagnosis Date Anxiety state BCC (basal cell carcinoma of skin) Benign neoplasm of colon Contracture of palmar fascia Diverticulosis of colon Hemorrhage of gastrointestinal tract Hemorrhage of rectum and anus Hemorrhoids Hypercholesteremia Hypothyroidism, unspecified Internal hemorrhoids Irritable bowel syndrome Past Surgical History: Procedure Laterality Date APPENDECTOMY 10/06/2004 COLONOSCOPY x6 HYSTERECTOMY 10/21/1982 Family History Problem Relation Name Age of Onset Parkinson's Disease Mother Prostate cancer Father Social History Socioeconomic History Marital status: Unknown Tobacco Use Smoking status: Never Smokeless tobacco: Never Substance and Sexual Activity Alcohol use: Yes Alcohol/week: 2.0 standard drinks of alcohol Types: 2 Glasses of wine per week Drug use: Never Current Outpatient Medications Medication Sig Dispense Refill albuterol 108 (90 Base) MCG/ACT inhaler inhale 2 puffs by mouth as directed every 4 hours if needed for wheezing or shortness of breath atorvastatin (Lipitor) 20 MG tablet Take 20 mg by mouth daily. Calcium Citrate-Vitamin D 315-5 MG-MCG tablet Take by mouth. cycloSPORINE (Restasis) 0.05 % ophthalmic emulsion 1 drop 2 times daily. FeroSul 325 (65 Fe) MG tablet Take 1 tablet by mouth every other day. levothyroxine (Synthroid, Levoxyl) 112 MCG tablet Take 112 mcg by mouth daily. ondansetron ODT (Zofran-ODT) 4 MG disintegrating tablet take 1 tablet by mouth every 6 hours if needed for nausea and vomiting psyllium (Metamucil) 28 % packet Take 1 packet by mouth 2 times daily. Mix and drink with at least 8 ounces of water or juice. sertraline (Zoloft) 50 MG tablet take 1/2 tablet by mouth once daily No current facility-administered medications for this visit. Allergies as of 05/09/2023 - Reviewed 05/09/2023 Allergen Reaction Noted Cat hair extract 05/12/2007 Dog epithelium 05/12/2007 Dust mite extract 05/12/2007 Grass pollen(k-o-r-t-swt bernard) 05/12/2007 Review of Systems: Review of Systems Constitutional: Positive for appetite change and unexpected weight change. Gastrointestinal: Positive for abdominal pain. Stool and gas per vagina Genitourinary: Positive for pelvic pain, vaginal bleeding and vaginal discharge. Hematological: Positive for adenopathy. BP 111/69 Pulse 94 Ht 1.651 m (5' 5 ) Wt 72.6 kg (160 lb) BMI 26.63 kg/m Physical Exam: Physical Exam Vitals and nursing note reviewed. Exam conducted with a enologist present. Constitutional: Appearance: Normal appearance. Cardiovascular: Rate and Rhythm: Normal rate and regular rhythm. Pulmonary: Effort: Pulmonary effort is normal. Breath sounds: Normal breath sounds. Abdominal: General: Abdomen is flat. Palpations: Abdomen is soft. Comments: Well-healed lower midline and right paramedian incision Genitourinary: General: Normal vulva. Labia: Right: No lesion. Left: No lesion. Urethra: No urethral lesion. Vagina: Bleeding and lesions present. Adnexa: Left: Mass present. Comments: Stool in the vagina, there is a fistula site in the left upper apex of the vagina. There is a large mass on the left side of the pelvis that is mobile and is contiguous with the left vaginal apex. 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 No cul-de-sac nodularity noted. Musculoskeletal: Right lower leg: No edema. Left lower leg: No edema. Lymphadenopathy: Upper Body: Right upper body: No supraclavicular adenopathy. Left upper body: Supraclavicular adenopathy present. Lower Body: No right inguinal adenopathy. No left inguinal adenopathy. Skin: General: Skin is warm and dry. Neurological: Mental Status: She is alert. Psychiatric: Mood and Affect: Mood normal. Behavior: Behavior normal. Urology review; the CT scan is personally been reviewed and does show a solid left lower quadrant mass consistent with ovarian primary. 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 Several pages of records have been reviewed from the referring mobile architect in the EMR to include pathology report as well as CT scan report. ASSESSMENT/PLAN: Diagnosis Plan 1. Abnormal finding on radiology exam 2. 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 She does understand risk of major abdominal surgery include bleeding infection and damage to other organs. Discussed with patient that we will obtain the CT scan of the chest and the MRI of the brain while she is in-house. I did discuss the case with the referring oncologist. We will hold off on a Mediport for now. We will plan on surgery for later this week. All the patient's and daughter and 's questions were answered to the best my ability and total time spent with coordination of care review of multiple EMR review of CT scan and coordination with referring oncologist was 55 minutes [facility] 05-11-2023 History and physical note H&P reviewed. The patient was examined and there are no changes to the H&P. Source Note - Bonifacio Higgins MD - 05/09/2023 1:30 PM EDT Chief complaint; neck mass, fatigue, gas and stool through vagina HPI: Yasmin Green is a pleasant 82 y.o. female who presents in consultation from Dr. Heath for further evaluation and management of what appears to be a stage IVb ovarian cancer. She initiallypresented with in February of this year noted a mass on the base of her left neck. This did not cause any pain or discomfort but gradually got bigger. She is also noted over the last 2 to 3 months increasing left lower quadrant pain, described as a dull ache in the left lower quadrant, has been associated with significant bowel difficulties to include diarrhea and episodes of having difficult bowel movements. She has undergone multiple colonoscopies due to a history of benign colon polyps. Last colonoscopy was 4 years ago and she was told that it was normal. Over the last few weeks she has been noticing a bloody brown vaginal drainage. She also thinks that she may be passing gas through the vagina. She does admit to fatigue as well as decreased appetite. Denies any nausea or vomiting. Has lost about 20 pounds over the last couple of months. 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 Her CA125 level is about 2000. Patient has a history of a hysterectomy in the remote past for benign fibroids. Denies any other history of malignancies. Is here today with her and her daughter. Past Medical History: Diagnosis Date Anxiety state BCC (basal cell carcinoma of skin) Benign neoplasm of colon Contracture of palmar fascia Diverticulosis of colon Hemorrhage of gastrointestinal tract Hemorrhage of rectum and anus Hemorrhoids Hypercholesteremia Hypothyroidism, unspecified Internal hemorrhoids Irritable bowel syndrome Past Surgical History: Procedure Laterality Date APPENDECTOMY 10/06/2004 COLONOSCOPY x6 HYSTERECTOMY 10/21/1982 Family History Problem Relation Name Age of Onset Parkinson's Disease Mother Prostate cancer Father Social History Socioeconomic History Marital status: Unknown Tobacco Use Smoking status: Never Smokeless tobacco: Never Substance and Sexual Activity Alcohol use: Yes Alcohol/week: 2.0 standard drinks of alcohol Types: 2 Glasses of wine per week Drug use: Never Current Outpatient Medications Medication Sig Dispense Refill albuterol 108 (90 Base) MCG/ACT inhaler inhale 2 puffs by mouth as directed every 4 hours if needed for wheezing or shortness of breath atorvastatin (Lipitor) 20 MG tablet Take 20 mg by mouth daily. Calcium Citrate-Vitamin D 315-5 MG-MCG tablet Take by mouth. cycloSPORINE (Restasis) 0.05 % ophthalmic emulsion 1 drop 2 times daily. FeroSul 325 (65 Fe) MG tablet Take 1 tablet by mouth every other day. levothyroxine (Synthroid, Levoxyl) 112 MCG tablet Take 112 mcg by mouth daily. ondansetron ODT (Zofran-ODT) 4 MG disintegrating tablet take 1 tablet by mouth every 6 hours if needed for nausea and vomiting psyllium (Metamucil) 28 % packet Take 1 packet by mouth 2 times daily. Mix and drink with at least 8 ounces of water or juice. sertraline (Zoloft) 50 MG tablet take 1/2 tablet by mouth once daily No current facility-administered medications for this visit. Allergies as of 05/09/2023 - Reviewed 05/09/2023 Allergen Reaction Noted Cat hair extract 05/12/2007 Dog epithelium 05/12/2007 Dust mite extract 05/12/2007 Grass pollen(k-o-r-t-swt bernard) 05/12/2007 Review of Systems: Review of Systems Constitutional: Positive for appetite change and unexpected weight change. Gastrointestinal: Positive for abdominal pain. Stool and gas per vagina Genitourinary: Positive for pelvic pain, vaginal bleeding and vaginal discharge. Hematological: Positive for adenopathy. BP 111/69 Pulse 94 Ht 1.651 m (5' 5 ) Wt 72.6 kg (160 lb) BMI 26.63 kg/m Physical Exam: Physical Exam Vitals and nursing note reviewed. Exam conducted with a enologist present. Constitutional: Appearance: Normal appearance. Cardiovascular: Rate and Rhythm: Normal rate and regular rhythm. Pulmonary: Effort: Pulmonary effort is normal. Breath sounds: Normal breath sounds. Abdominal: General: Abdomen is flat. Palpations: Abdomen is soft. Comments: Well-healed lower midline and right paramedian incision Genitourinary: General: Normal vulva. Labia: Right: No lesion. Left: No lesion. Urethra: No urethral lesion. Vagina: Bleeding and lesions present. Adnexa: Left: Mass present. Comments: Stool in the vagina, there is a fistula site in the left upper apex of the vagina. There is a large mass on the left side of the pelvis that is mobile and is contiguous with the left vaginal apex. 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 No cul-de-sac nodularity noted. Musculoskeletal: Right lower leg: No edema. Left lower leg: No edema. Lymphadenopathy: Upper Body: Right upper body: No supraclavicular adenopathy. Left upper body: Supraclavicular adenopathy present. Lower Body: No right inguinal adenopathy. No left inguinal adenopathy. Skin: General: Skin is warm and dry. Neurological: Mental Status: She is alert. Psychiatric: Mood and Affect: Mood normal. Behavior: Behavior normal. Urology review; the CT scan is personally been reviewed and does show a solid left lower quadrant mass consistent with ovarian primary. 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 Several pages of records have been reviewed from the referring mobile architect in the EMR to include pathology report as well as CT scan report. ASSESSMENT/PLAN: Diagnosis Plan 1. Abnormal finding on radiology exam 2. 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 She does understand risk of major abdominal surgery include bleeding infection and damage to other organs. Discussed with patient that we will obtain the CT scan of the chest and the MRI of the brain while she is in-house. I did discuss the case with the referring oncologist. We will hold off on a Mediport for now. We will plan on surgery for later this week. All the patient's and daughter and 's questions were answered to the best my ability and total time spent with coordination of care review of multiple EMR review of CT scan and coordination with referring oncologist was 55 minutes documented in this encounter [facility] 05-10-2023 Note Patient: Yasmin Rubalcava idferoz Procedure Information Date/Time: 05/11/23 1030 Procedures: LAPAROTOMY, BILATERAL SALPINGO OOPHORECTOMY, SIGMOID RESECTION, POSSIBLE MEDIPORT (Abdomen) SALPINGO-OOPHORECTOMY COMPLETE OR PARTIAL UNILATERAL OR BILATERAL (Abdomen) INSERT TUNNELED CENTRAL VENOUS CATHETER WITH PORT Location: [facility] OR [address] [place] [address] Operating Room Surgeons: Bonifacio Higgins MD Relevant Problems No relevant active problems Past Medical History: Past Medical History: No date: Anxiety state No date: BCC (basal cell carcinoma of skin) No date: Benign neoplasm of colon No date: Contracture of palmar fascia No date: Diverticulosis of colon No date: Hemorrhage of gastrointestinal tract No date: Hemorrhage of rectum and anus No date: Hemorrhoids No date: Hypercholesteremia No date: Hypothyroidism, unspecified No date: Internal hemorrhoids No date: Irritable bowel syndrome Past Surgical History: Past Surgical History: 10/06/2004: APPENDECTOMY No date: COLONOSCOPY Comment: x6 10/21/1982: HYSTERECTOMY Social History: TOBACCO: reports that she has never smoked. She has never used smokeless tobacco. ETOH: reports current alcohol use of about 2.0 standard drinks of alcohol per week. Social History Substance and Sexual Activity Drug Use Never Family History: Family History Problem Relation Name Age of Onset ? Parkinson's Disease Mother ? Prostate cancer Father Screening: Hysterectomy Clinical information reviewed: Physical Exam Airway Mallampati: II TM distance: >3 FB Neck ROM: full Mouth Open: normal Cardiovascular Dental dentition normal Pulmonary Abdominal Anesthesia Plan patient is NPO appropriate Any family history or previous problems with anesthesia no ASA 3 general and regional Any family history or previous problems with anesthesia no (T&S, CBC ordered by surgeon) The patient is not a current smoker. Anesthetic plan and risks discussed with patient. ERAS Type Short ERAS ROSALIE Screening Labs: No results found for: WBC, HGB, HCT, MCV, PLT No results found for: NA, K, CL, CO2, BUN, CREATININE, GLUCOSE, CALCIUM, PROT, BILIRUBINFL, ALKPHOS, AST, ALT, EGFR, GLOB No echocardiogram results found for the past 14 days No results found for this or any previous visit. [facility] 05-09-2023 Note Chief complaint; nec k mass, fatigue, gas and stool through vagina HPI: Yasmin Green is a pleasant 82 y.o. female who presents in consultation from Dr. Heath for further evaluation and management of what appears to be a stage IVb ovarian cancer. She initiallypresented with in February of this year noted a mass on the base of her left neck. This did not cause any pain or discomfort but gradually got bigger. She is also noted over the last 2 to 3 months increasing left lower quadrant pain, described as a dull ache in the left lower quadrant, has been associated with significant bowel difficulties to include diarrhea and episodes of having difficult bowel movements. She has undergone multiple colonoscopies due to a history of benign colon polyps. Last colonoscopy was 4 years ago and she was told that it was normal. Over the last few weeks she has been noticing a bloody brown vaginal drainage. She also thinks that she may be passing gas through the vagina. She does admit to fatigue as well as decreased appetite. Denies any nausea or vomiting. Has lost about 20 pounds over the last couple of months. 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 Her CA125 level is about 2000. Patient has a history of a hysterectomy in the remote past for benign fibroids. Denies any other history of malignancies. Is here today with her and her daughter. Past Medical History: Diagnosis Date Anxiety state BCC (basal cell carcinoma of skin) Benign neoplasm of colon Contracture of palmar fascia Diverticulosis of colon Hemorrhage of gastrointestinal tract Hemorrhage of rectum and anus Hemorrhoids Hypercholesteremia Hypothyroidism, unspecified Internal hemorrhoids Irritable bowel syndrome Past Surgical History: Procedure Laterality Date APPENDECTOMY 10/06/2004 COLONOSCOPY x6 HYSTERECTOMY 10/21/1982 Family History Problem Relation Name Age of Onset Parkinson's Disease Mother Prostate cancer Father Social History Socioeconomic History Marital status: Unknown Tobacco Use Smoking status: Never Smokeless tobacco: Never Substance and Sexual Activity Alcohol use: Yes Alcohol/week: 2.0 standard drinks of alcohol Types: 2 Glasses of wine per week Drug use: Never Current Outpatient Medications Medication Sig Dispense Refill albuterol 108 (90 Base) MCG/ACT inhaler inhale 2 puffs by mouth as directed every 4 hours if needed for wheezing or shortness of breath atorvastatin (Lipitor) 20 MG tablet Take 20 mg by mouth daily. Calcium Citrate-Vitamin D 315-5 MG-MCG tablet Take by mouth. cycloSPORINE (Restasis) 0.05 % ophthalmic emulsion 1 drop 2 times daily. FeroSul 325 (65 Fe) MG tablet Take 1 tablet by mouth every other day. levothyroxine (Synthroid, Levoxyl) 112 MCG tablet Take 112 mcg by mouth daily. ondansetron ODT (Zofran-ODT) 4 MG disintegrating tablet take 1 tablet by mouth every 6 hours if needed for nausea and vomiting psyllium (Metamucil) 28 % packet Take 1 packet by mouth 2 times daily. Mix and drink with at least 8 ounces of water or juice. sertraline (Zoloft) 50 MG tablet take 1/2 tablet by mouth once daily No current facility-administered medications for this visit. Allergies as of 05/09/2023 - Reviewed 05/09/2023 Allergen Reaction Noted Cat hair extract 05/12/2007 Dog epithelium 05/12/2007 Dust mite extract 05/12/2007 Grass pollen(k-o-r-t-swt bernard) 05/12/2007 Review of Systems: Review of Systems Constitutional: Positive for appetite change and unexpected weight change. Gastrointestinal: Positive for abdominal pain. Stool and gas per vagina Genitourinary: Positive for pelvic pain, vaginal bleeding and vaginal discharge. Hematological: Positive for adenopathy. BP 111/69 Pulse 94 Ht 1.651 m (5' 5 ) Wt 72.6 kg (160 lb) BMI 26.63 kg/m? Physical Exam: Physical Exam Vitals and nursing note reviewed. Exam conducted with a enologist present. Constitutional: Appearance: Normal appearance. Cardiovascular: Rate and Rhythm: Normal rate and regular rhythm. Pulmonary: Effort: Pulmonary effort is normal. Breath sounds: Normal breath sounds. Abdominal: General: Abdomen is flat. Palpations: Abdomen is soft. Comments: Well-healed lower midline and right paramedian incision Genitourinary: General: Normal vulva. Labia: Right: No lesion. Left: No lesion. Urethra: No urethral lesion. Vagina: Bleeding and lesions present. Adnexa: Left: Mass present. Comments: Stool in the vagina, there is a fistula site in the left upper apex of the vagina. There is a large mass on the left side of the pelvis that is mobile and is contiguous with the left vaginal apex. 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 No cul-de-sac nodularity noted. Musculoskeletal: Right lower leg: No edema. Left lower leg: No edema. Lymphadenopathy: Upper Body: Right upper bod (more content not included)... [facility] 05-09-2023 History of Presen t illness Narrative Chief complaint; neck mass, fatigue, gas and stool through vagina HPI: Yasmin Green is a pleasant 82 y.o. female who presents in consultation from Dr. Heath for further evaluation and management of what appears to be a stage IVb ovarian cancer. She initiallypresented with in February of this year noted a mass on the base of her left neck. This did not cause any pain or discomfort but gradually got bigger. She is also noted over the last 2 to 3 months increasing left lower quadrant pain, described as a dull ache in the left lower quadrant, has been associated with significant bowel difficulties to include diarrhea and episodes of having difficult bowel movements. She has undergone multiple colonoscopies due to a history of benign colon polyps. Last colonoscopy was 4 years ago and she was told that it was normal. Over the last few weeks she has been noticing a bloody brown vaginal drainage. She also thinks that she may be passing gas through the vagina. She does admit to fatigue as well as decreased appetite. Denies any nausea or vomiting. Has lost about 20 pounds over the last couple of months. 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 Her CA125 level is about 2000. Patient has a history of a hysterectomy in the remote past for benign fibroids. Denies any other history of malignancies. Is here today with her and her daughter. Past Medical History: Diagnosis Date Anxiety state BCC (basal cell carcinoma of skin) Benign neoplasm of colon Contracture of palmar fascia Diverticulosis of colon Hemorrhage of gastrointestinal tract Hemorrhage of rectum and anus Hemorrhoids Hypercholesteremia Hypothyroidism, unspecified Internal hemorrhoids Irritable bowel syndrome Past Surgical History: Procedure Laterality Date APPENDECTOMY 10/06/2004 COLONOSCOPY x6 HYSTERECTOMY 10/21/1982 Family History Problem Relation Name Age of Onset Parkinson's Disease Mother Prostate cancer Father Social History Socioeconomic History Marital status: Unknown Tobacco Use Smoking status: Never Smokeless tobacco: Never Substance and Sexual Activity Alcohol use: Yes Alcohol/week: 2.0 standard drinks of alcohol Types: 2 Glasses of wine per week Drug use: Never Current Outpatient Medications Medication Sig Dispense Refill albuterol 108 (90 Base) MCG/ACT inhaler inhale 2 puffs by mouth as directed every 4 hours if needed for wheezing or shortness of breath atorvastatin (Lipitor) 20 MG tablet Take 20 mg by mouth daily. Calcium Citrate-Vitamin D 315-5 MG-MCG tablet Take by mouth. cycloSPORINE (Restasis) 0.05 % ophthalmic emulsion 1 drop 2 times daily. FeroSul 325 (65 Fe) MG tablet Take 1 tablet by mouth every other day. levothyroxine (Synthroid, Levoxyl) 112 MCG tablet Take 112 mcg by mouth daily. ondansetron ODT (Zofran-ODT) 4 MG disintegrating tablet take 1 tablet by mouth every 6 hours if needed for nausea and vomiting psyllium (Metamucil) 28 % packet Take 1 packet by mouth 2 times daily. Mix and drink with at least 8 ounces of water or juice. sertraline (Zoloft) 50 MG tablet take 1/2 tablet by mouth once daily No current facility-administered medications for this visit. Allergies as of 05/09/2023 - Reviewed 05/09/2023 Allergen Reaction Noted Cat hair extract 05/12/2007 Dog epithelium 05/12/2007 Dust mite extract 05/12/2007 Grass pollen(k-o-r-t-swt bernard) 05/12/2007 Review of Systems: Review of Systems Constitutional: Positive for appetite change and unexpected weight change. Gastrointestinal: Positive for abdominal pain. Stool and gas per vagina Genitourinary: Positive for pelvic pain, vaginal bleeding and vaginal discharge. Hematological: Positive for adenopathy. BP 111/69 Pulse 94 Ht 1.651 m (5' 5 ) Wt 72.6 kg (160 lb) BMI 26.63 kg/m Physical Exam: Physical Exam Vitals and nursing note reviewed. Exam conducted with a enologist present. Constitutional: Appearance: Normal appearance. Cardiovascular: Rate and Rhythm: Normal rate and regular rhythm. Pulmonary: Effort: Pulmonary effort is normal. Breath sounds: Normal breath sounds. Abdominal: General: Abdomen is flat. Palpations: Abdomen is soft. Comments: Well-healed lower midline and right paramedian incision Genitourinary: General: Normal vulva. Labia: Right: No lesion. Left: No lesion. Urethra: No urethral lesion. Vagina: Bleeding and lesions present. Adnexa: Left: Mass present. Comments: Stool in the vagina, there is a fistula site in the left upper apex of the vagina. There is a large mass on the left side of the pelvis that is mobile and is contiguous with the left vaginal apex. 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 No cul-de-sac nodularity noted. Musculoskeletal: Right lower leg: No edema. Left lower leg: No edema. Lymphadenopathy: Upper Body: Right upper body: No supraclavicular adenopathy. Left upper body: Supraclavicular adenopathy present. Lower Body: No right inguinal adenopathy. No left inguinal adenopathy. Skin: General: Skin is warm and dry. Neurological: Mental Status: She is alert. Psychiatric: Mood and Affect: Mood normal. Behavior: Behavior normal. Urology review; the CT scan is personally been reviewed and does show a solid left lower quadrant mass consistent with ovarian primary. 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 Several pages of records have been reviewed from the referring mobile architect in the EMR to include pathology report as well as CT scan report. ASSESSMENT/PLAN: Diagnosis Plan 1. Abnormal finding on radiology exam 2. 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 She does understand risk of major abdominal surgery include bleeding infection and damage to other organs. Discussed with patient that we will obtain the CT scan of the chest and the MRI of the brain while she is in-house. I did discuss the case with the referring oncologist. We will hold off on a Mediport for now. We will plan on surgery for later this week. All the patient's and daughter and 's questions were answered to the best my ability and total time spent with coordination of care review of multiple EMR review of CT scan and coordination with referring oncologist was 55 minutes documented in this encounter [facility] 05-09-2023 Miscellaneous Notes Addended by: BONIFACIO HIGGINS on: 05/09/2023 03:58 PM Modules accepted: Orders documented in this encounter [facility] 05-09-2023 Note Addended by: BONIFACIO HIGGINS on: 05/09/2023 03:58 PM Modules accepted: Orders [facility] 05-09-2023 Note Addended by: BONIFACIO HIGGINS on: 05/09/2023 03:58 PM Modules accepted: Orders [facility] 05-06-2023 Telephone encounter Note Called this patient to schedule a firmware software verification engineer appt. She stated that DR. Heath told her she would get an appt on Tuesday with you. Not sure if you talked to him? Tried to get her in Tuesday with different provider. Stated she wanted to see you. Did schedule her with you on 05/18/23. OK? [facility] 05-06-2023 Miscellaneous Notes Called this patient to schedule a firmware software verification engineer appt. She stated that DR. Heath told her she would get an appt on Tuesday with you. Not sure if you talked to him? Tried to get her in Tuesday with different provider. Stated she wanted to see you. Did schedule her with you on 05/18/23. OK? documented in this encounter [facility] 04-22-2023 Hospital Discharg e instructions Patient Education 04/22/2023 16:11:47 Lithotripsy, Care After Lithotripsy, Care After This sheet gives you information about how to care for yourself after your procedure. Your health care provider may also give you more specific instructions. If you have problems or questions, contact your health care provider. What can I expect after the procedure? After the procedure, it is common to have: Some blood in your urine. This should only last for a few days. Soreness in your back, sides, or upper abdomen for a few days. Blotches or bruises on your back where the pressure wave entered the skin. Pain, discomfort, or nausea when pieces (fragments) of the kidney stone move through the tube that carries urine from the kidney to the bladder (ureter). Stone fragments may pass soon after the procedure, but they may continue to pass for up to 4 8 weeks. ?If you have severe pain or nausea, contact your health care provider. This may be caused by a large stone that was not broken up, and this may mean that you need more treatment. Some pain or discomfort during urination. Some pain or discomfort in the lower abdomen or (in men) at the base of the penis. Follow these instructions at home: Medicines Take [id number] and prescription medicines only as told by your health care provider. If you were prescribed an antibiotic medicine, take it as told by your health care provider. Do not stop taking the antibiotic even if you start to feel better. Do not drive for 24 hours if you were given a medicine to help you relax (sedative). Do not drive or use heavy machinery while taking prescription pain medicine. Eating and drinking Drink enough water and fluids to keep your urine clear or pale yellow. This helps any remaining pieces of the stone to pass. It can also help prevent new stones from forming. Eat plenty of fresh fruits and vegetables. Follow instructions from your health care provider about eating and drinking restrictions. You may be instructed: ?To reduce how much salt (sodium) you eat or drink. Check ingredients and nutrition facts on packaged foods and beverages. ?To reduce how much meat you eat. Eat the recommended amount of calcium for your age and gender. Ask your health care provider how much calcium you should have. General instructions Get plenty of rest. Most people can resume normal activities 1 2 days after the procedure. Ask your health care provider what activities are safe for you. Your health care provider may direct you to lie in a certain position (postural drainage) and tap firmly (percuss) over your kidney area to help stone fragments pass. Follow instructions as told by your health care provider. If directed, strain all urine through the strainer that was provided by your health care provider. ?Keep all fragments for your health care provider to see. Any stones that are found may be sent to a medical lab for examination. The stone may be as small as a grain of salt. Keep all follow-up visits as told by your health care provider. This is important. Contact a health care provider if: You have pain that is severe or does not get better with medicine. You have nausea that is severe or does not go away. You have blood in your urine longer than your health care provider told you to expect. You have more blood in your urine. You have pain during urination that does not go away. You urinate more frequently than usual and this does not go away. You develop a rash or any other possible signs of an allergic reaction. Get help right away if: You have severe pain in your back, sides, or upper abdomen. You have severe pain while urinating. Your urine is very dark red. You have blood in your stool (feces). You cannot pass any urine at all. You feel a strong urge to urinate after emptying your bladder. You have a fever or chills. You develop shortness of breath, difficulty breathing, or chest pain. You have severe nausea that leads to persistent vomiting. You faint. Summary After this procedure, it is common to have some pain, discomfort, or nausea when pieces (fragments) of the kidney stone move through the tube that carries urine from the kidney to the bladder (ureter). If this pain or nausea is severe, however, you should contact your health care provider. Most people can resume normal activities 1 2 days after the procedure. Ask your health care provider what activities are safe for you. Drink enough water and fluids to keep your urine clear or pale yellow. This helps any remaining pieces of the stone to pass, and it can help prevent new stones from forming. If directed, strain your urine and keep all fragments for your health care provider to see. Fragments or stones may be as small as a grain of salt. Get help right away if you have severe pain in your back, sides, or upper abdomen or have severe pain while urinating. This information is not intended to replace advice given to you by your health care provider. Make sure you discuss any questions you have with your health care provider. Document Released: 11/26/2008 Document Revised: 02/18/2020 Document Reviewed: 09/28/2017 [employer] Patient Education 2020 [employer] 04/22/2023 15:45:18 1-SDS Discharge Instructions Template (08/2018) (CUSTOM) [facility] SAME DAY SURGERY DISCHARGE INSTRUCTIONS PLEASE FOLLOW THE INSTRUCTIONS BELOW MARKED WITH AN X: _x__ Regular Diet: Start with clear liquids, then soup and crackers and gradually add other foods. _x__ Drink extra fluids. ___ Special Diet Instructions: ___ ACTIVITY: _x__ Avoid stress to suture line. Since you have had an anesthetic, it would be advisable not to drive, drink alcohol, or make major decisions over the next 24 hours. You may require more rest tonight and tomorrow. ___ May resume regular activity as tolerated. ___ Restrict activity as follows: ___ ___ Walk Only ___ ___ Do not go up and down stairs. ___ Do not ride in car until ___ ___ Do not drive car. ___ Do not have sexual intercourse. ___ No heavy lifting, pushing or straining. _x__ Other: Follow instructions given by Dr Pedro BATHING/SHOWERING: ___ Sponge bathe until office visit. ___ Sitting in tub of warm water may relieve discomfort. ___ May tub bathe ___ May shower ___ On day after surgery sit in tub of warm water to soak off dressing. DRESSING: ___ Keep operative area dry and clean for ___ ___ Check the operative area for signs of bleeding. Apply pressure to the bleeding site if necessary and call your physician. ___ Change dressing as necessary using sterile dressing material or bandaid. ___ Reinforce dressing as necessary. ___ Change and care for wound as follows: ___ ___ Wear bra for ___ days following breast surgery for comfort. ___ Change ip pad as needed. ___ Wear scrotal support for comfort. WATCH FOR SIGNS OF INFECTION: (Usually appears 36-48 hours after surgery) Increased temperature (101 degrees Fahrenheit or higher) Redness or swelling Increased pain Foul odor or drainage. If you have any questions, please call your doctor at the number listed on your follow up instructions. Follow all instructions given to you by your physician. Please complete and return the survey you will be receiving in the mail to help us better serve our patients. Form: [id number] ([id number]) R: 02/27 [facility] 04-22-2023 Summary of episod e note Discharge Instructions Thank you for allowing [facility] to assist you with your healthcare needs. The following is important discharge information regarding your hospital visit. Your Care Team JONATHAN VANEGAS MD Your Diagnosis Post-op pain What to do next Scheduled Follow-Up Appointments Appointment Type When With Where Contact InformationGS OV Post Op 05/04/2023 03:40 PM EDT Slava PEDRO DO [facility] Surgery [address] The Following Activity and Diet Have Been Ordered for You Discharge Activity - Ordered -- Driving Restricted, Follow the post-operative/post-procedure activity instructions provided by your physician's office., 04/22/23 15:44:00 EDT Discharge Diet - Ordered -- Follow the post-operative/post-procedure diet instructions provided by your physician's office., 04/22/23 15:44:00 EDT Allergies No Known Medication Allergies Medications Please ask your primary doctor or pharmacist before taking any other medication not listed, including over the counter drugs, herbal medications, vitamins and or supplements as they may interact with your home medications. What How Much When Why Instructions Last Dose New acetaminophen-hydrocodone (Clemons 325- 5 mg oral tablet) 1 tab(s) by mouth Every 4 hours as needed for for pain Post-op pain Duration: 2 Days Pickup at [id number] Unchanged albuterol (Albuterol (Eqv-ProAir HFA) 90 mcg/ inh inhalation aerosol) 1 puff(s) by inhalation Every 4 hours Unchanged atorvastatin (atorvastatin 20 mg oral tablet) 1 tab(s) by mouth Daily at bedtime Unchanged cholecalciferol (Vitamin D3 25 mcg (1000 intl units) oral tablet) 1 tab(s) by mouth Once a day Unchanged cycloSPORINE ophthalmic (Restasis 0.05% ophthalmic emulsion) 1 Drops Both eyes Two (2) times a day Unchanged levothyroxine (levothyroxine 112 mcg (0.112 mg) oral tablet) 1 tab(s) by mouth Once a day Unchanged Misc Medication (CBD OIL) 1 Milliliter by mouth Two (2) times a day Unchanged Misc Medication (COLLAGEN POWDER) 1 SCOOP by mouth Once a day Unchanged sertraline (sertraline 50 mg oral tablet) 1 tab(s) by mouth Once a day take 1/ 2 tablet by mouth once daily Pharmacy Information [id number]: [address], [place] [id number] [phone] Please take this list to your next doctor s visit. Bring all medications you take, including over the counter medications, herbals and other supplements with you to your doctor s visit. Patients and families are reminded to discard old lists and to update any records with all medication providers or retail pharmacies. Education Materials [facility] SAME DAY SURGERY DISCHARGE INSTRUCTIONS PLEASE FOLLOW THE INSTRUCTIONS BELOW MARKED WITH AN X: _x__ Regular Diet: Start with clear liquids, then soup and crackers and gradually add other foods. _x__ Drink extra fluids. ___ Special Diet Instructions: ___ ACTIVITY: _x__ Avoid stress to suture line. Since you have had an anesthetic, it would be advisable not to drive, drink alcohol, or make major decisions over the next 24 hours. You may require more rest tonight and tomorrow. ___ May resume regular activity as tolerated. ___ Restrict activity as follows: ___ ___ Walk Only ___ ___ Do not go up and down stairs. ___ Do not ride in car until ___ ___ Do not drive car. ___ Do not have sexual intercourse. ___ No heavy lifting, pushing or straining. _x__ Other: Follow instructions given by Dr Pedro BATHING/SHOWERING: ___ Sponge bathe until office visit. ___ Sitting in tub of warm water may relieve discomfort. ___ May tub bathe ___ May shower ___ On day after surgery sit in tub of warm water to soak off dressing. DRESSING: ___ Keep operative area dry and clean for ___ ___ Check the operative area for signs of bleeding. Apply pressure to the bleeding site if necessary and call your physician. ___ Change dressing as necessary using sterile dressing material or bandaid. ___ Reinforce dressing as necessary. ___ Change and care for wound as follows: ___ ___ Wear bra for ___ days following breast surgery for comfort. ___ Change drip pad as needed. ___ Wear scrotal support for comfort. WATCH FOR SIGNS OF INFECTION: (Usually appears 36-48 hours after surgery) Increased temperature (101 degrees Fahrenheit or higher) Redness or swelling Increased pain Foul odor or drainage. If you have any questions, please call your doctor at the number listed on your follow up instructions. Follow all instructions given to you by your physician. Please complete and return the survey you will be receiving in the mail to help us better serve our patients. Form: [id number] ([id number]) R: 02/27 Additional Information VACCINATE! IT SAVES LIVES! Members of the community who have not yet received the COVID-19 vaccine and would like to receive it can visit one of [facility] vaccine clinics. There are many vaccine clinic locations within the [facility]. For locations and available times, please visit https://gettheshot.coronavirus.sd io.gov/. It is important to note that some COVID mobile vaccine clinics are held outdoors and may be canceled in rainy or stormy conditions. To learn more about pediatric vaccinations (ages 5-11), we invite you to visit the [facility] webpage. [email or web address] To learn more about the COVID-19 vaccine, we invite you to visit the CDC website for a list of frequently asked questions.https://www.cdc.gov/cor onavirus/2019-ncov/vaccines/faq.h tml [employer] [facility] [employer] Patient Portal Access Instructions: Stay connected with your healthcare team and access your personal medical information anytime with the [employer] [facility] [employer] Patient Portal. Please follow the directions below to create your [employer] [facility] [employer] account: 1.Access the email account you provided upon registration to the hospital/physician office.2.Look for an invitation email from [facility].3.Open the email and access the invitation link: Accept Invitation to [facility].4.Fill in the required lomas to create your account. To access your account, visit [email or web address]. Click the blue button labeled Access Patient Portal and then log in with the username and password that you created in the steps above. You will be able to view your test results, lab results, a summary of your visits, upcoming appointments and more. There is also a convenient messaging option where you can send secure messages to your provider. In addition, you will have the ability to download any documents or summaries to your computer and/or send the information securely to a physician. Remember that your healthcare information is confidential, so carefully consider who you will allow to register on the [facility] Patient Portal for access to your information. You can also access the [facility] Patient Portal on the [facility] holden. Simply click on Patient Portal and then log into your account. If you would like to receive a full copy of your medical records, please contact the [facility] Medical Records Department by calling [phone], Tuesday through Tuesday between 8 a.m. and 4:30 p.m. HOW TO SAFELY DISPOSE OF PRESCRIPTION MEDICATIONS Please use one of the following methods to safely dispose of your unused medications. 1.Use a drug disposal kit: the drug disposal pouch allows you to safely discard your old and unused drugs. Ask your nurse to give you one when you are discharged.2.Visit a local take-back location: Many local pharmacies and police departments have programs that collect old and unwanted prescription drugs. Call your local pharmacy or go to http://bit.[facility]/6J1Hu8f to find one close to you.3.Make use of household items: Use cat litter or old coffee grounds to dispose medications if other options are not available. Mix your drugs with these household products, seal them in an airtight container and throw it into the garbage. Call [facility]: [phone] to be sure your drugs can be disposed of in this way. Some medicines may require a different approach.4.Never flush your medications down the toilet. IF YOU HAVE BEEN PRESCRIBED AN OPIOID FOR PAIN If you have been prescribed an opioid (such as hydrocodone, oxycodone or morphine), it is critical to understand the possible side effects and risks of opioid pain medications. Even when taken as directed, opioids can have several side effects including: Tolerance, meaning you might need to take more of a medication for the same pain relief. Nausea, vomiting and/or constipation. Sleepiness, dizziness, dry mouth, confusion, depression or itching. Physical dependence, meaning you have withdrawal symptoms when a medication is stopped, can develop within a few days. KNOW YOUR RESPONSIBILITIES It is important to know exactly how much and how often to take the opioid pain medications you are prescribed. Never take opioids in higher amounts or more often than prescribed. Do not combine opioids with alcohol or other drugs that cause drowsiness, such as benzodiazepines, also known as benzos, including diazepam and alprazolam, muscle relaxants or sleep aids. Never sell or share prescription opioids. This is illegal. Store opioids in a secure place and out of reach of others (including children, family, friends and visitors). The last page of this document has been signed and retained as a CHART COPY. Signatures Patient Education Materials 1-SDS Discharge Instructions Template (08/2018) (CUSTOM) Medication Leaflets My discharge plan and instructions have been reviewed and explained to me and I,YASMIN GREEN understand my current condition and have read and understand these discharge instructions. I have received a written copy of the plan/instructions. If I have questions, I am aware that I should contact my doctor. Patient/Technical Artist Signature: Date/Time: Relationship to Patient: ____ Witness Name/Signature: Date/Time: [facility] 04-22-2023 Anesthesiology Consult note Patient: YASMIN GREEN Age: 82 years Sex: Female : 1940 Associated Diagnoses: None Author: CHERYL ANTONIO MD Postoperative Information Post Operative Info: Post op day: Post Anesthesia Care Unit. Patient location: PACU. Assessment Postanesthesia assessment Vitals: Vital signs from flowsheet : Vital Signs 04/22/2023 15:15 EDT Temperature Temporal Artery 36.4 DegC Heart Rate Monitored 83 bpm Respiratory Rate 16 br/min Systolic Blood Pressure Non-Invasive 139 mmHg Diastolic Blood Pressure Non-Invasive 73 mmHg Mean Arterial Pressure (NBP) 94 mmHg 04/22/2023 14:57 EDT Heart Rate Monitored 82 bpm Respiratory Rate 16 br/min Systolic Blood Pressure Non-Invasive 139 mmHg Diastolic Blood Pressure Non-Invasive 74 mmHg Mean Arterial Pressure (NBP) 95 mmHg 04/22/2023 14:42 EDT Heart Rate Monitored 79 bpm Respiratory Rate 16 br/min Systolic Blood Pressure Non-Invasive 144 mmHg HI Diastolic Blood Pressure Non-Invasive 75 mmHg Mean Arterial Pressure (NBP) 94 mmHg 04/22/2023 14:26 EDT Temperature Temporal Artery 36.2 DegC Heart Rate Monitored 88 bpm Respiratory Rate 16 br/min Systolic Blood Pressure Non-Invasive 163 mmHg HI Diastolic Blood Pressure Non-Invasive 83 mmHg Mean Arterial Pressure (NBP) 104 mmHg 04/22/2023 14:20 EDT Heart Rate Monitored 80 bpm bpm Respiratory Rate - Anes 0 br/min br/min 04/22/2023 14:19 EDT Systolic Blood Pressure Non-Invasive 133 mmHg mmHg Diastolic Blood Pressure Non-Invasive 86 mmHg mmHg 04/22/2023 14:16 EDT Systolic Blood Pressure Non-Invasive 107 mmHg mmHg Diastolic Blood Pressure Non-Invasive 64 mmHg mmHg 04/22/2023 14:15 EDT Temperature (Route Not Specified) 36.56 DegC DegC Heart Rate Monitored 78 bpm bpm Respiratory Rate - Anes 17 br/min br/min 04/22/2023 14:13 EDT Systolic Blood Pressure Non-Invasive 110 mmHg mmHg Diastolic Blood Pressure Non-Invasive 62 mmHg mmHg 04/22/2023 14:10 EDT Temperature (Route Not Specified) 36.41 DegC DegC Heart Rate Monitored 77 bpm bpm Respiratory Rate - Anes 19 br/min br/min 04/22/2023 14:09 EDT Systolic Blood Pressure Non-Invasive 98 mmHg mmHg Diastolic Blood Pressure Non-Invasive 71 mmHg mmHg 04/22/2023 14:08 EDT Systolic Blood Pressure Non-Invasive 77 mmHg mmHg Diastolic Blood Pressure Non-Invasive 32 mmHg mmHg 04/22/2023 14:05 EDT Temperature (Route Not Specified) 36.34 DegC DegC Heart Rate Monitored 78 bpm bpm Respiratory Rate - Anes 18 br/min br/min 04/22/2023 14:04 EDT Systolic Blood Pressure Non-Invasive 133 mmHg mmHg Diastolic Blood Pressure Non-Invasive 81 mmHg mmHg 04/22/2023 14:02 EDT Systolic Blood Pressure Non-Invasive 144 mmHg mmHg 04/22/2023 14:00 EDT Temperature (Route Not Specified) 36.63 DegC DegC Heart Rate Monitored 76 bpm bpm Respiratory Rate - Anes 20 br/min br/min 04/22/2023 13:59 EDT Systolic Blood Pressure Non-Invasive 146 mmHg mmHg Diastolic Blood Pressure Non-Invasive 130 mmHg mmHg 04/22/2023 13:55 EDT Temperature (Route Not Specified) 36.7 DegC DegC Heart Rate Monitored 81 bpm bpm Respiratory Rate - Anes 19 br/min br/min Systolic Blood Pressure Non-Invasive 103 mmHg mmHg Diastolic Blood Pressure Non-Invasive 79 mmHg mmHg 04/22/2023 13:52 EDT Systolic Blood Pressure Non-Invasive 119 mmHg mmHg Diastolic Blood Pressure Non-Invasive 70 mmHg mmHg 04/22/2023 13:50 EDT Temperature (Route Not Specified) 36.77 DegC DegC Heart Rate Monitored 78 bpm bpm Respiratory Rate - Anes 16 br/min br/min 04/22/2023 13:49 EDT Systolic Blood Pressure Non-Invasive 115 mmHg mmHg Diastolic Blood Pressure Non-Invasive 70 mmHg mmHg 04/22/2023 13:46 EDT Systolic Blood Pressure Non-Invasive 116 mmHg mmHg Diastolic Blood Pressure Non-Invasive 38 mmHg mmHg 04/22/2023 13:45 EDT Temperature (Route Not Specified) 36.51 DegC DegC Heart Rate Monitored 82 bpm bpm Respiratory Rate - Anes 18 br/min br/min 04/22/2023 13:44 EDT Systolic Blood Pressure Non-Invasive 99 mmHg mmHg Diastolic Blood Pressure Non-Invasive 58 mmHg mmHg 04/22/2023 13:40 EDT Temperature (Route Not Specified) 36.7 DegC DegC Heart Rate Monitored 80 bpm bpm Respiratory Rate - Anes 16 br/min br/min 04/22/2023 13:39 EDT Systolic Blood Pressure Non-Invasive 153 mmHg mmHg Diastolic Blood Pressure Non-Invasive 133 mmHg mmHg 04/22/2023 13:37 EDT Systolic Blood Pressure Non-Invasive 121 mmHg mmHg Diastolic Blood Pressure Non-Invasive 63 mmHg mmHg 04/22/2023 13:35 EDT Temperature (Route Not Specified) 35.83 DegC DegC Heart Rate Monitored 80 bpm bpm Respiratory Rate - Anes 16 br/min br/min 04/22/2023 13:34 EDT Systolic Blood Pressure Non-Invasive 113 mmHg mmHg Diastolic Blood Pressure Non-Invasive 92 mmHg mmHg 04/22/2023 13:30 EDT Temperature (Route Not Specified) 36.68 DegC DegC Heart Rate Monitored 85 bpm bpm Respiratory Rate - Anes 18 br/min br/min Systolic Blood Pressure Non-Invasive 110 mmHg mmHg Diastolic Blood Pressure Non-Invasive 67 mmHg mmHg 04/22/2023 13:28 EDT Systolic Blood Pressure Non-Invasive 103 mmHg mmHg Diastolic Blood Pressure Non-Invasive 64 mmHg mmHg 04/22/2023 13:25 EDT Temperature (Route Not Specified) 36.86 DegC DegC Heart Rate Monitored 85 bpm bpm Respiratory Rate - Anes 19 br/min br/min Systolic Blood Pressure Non-Invasive 115 mmHg mmHg Diastolic Blood Pressure Non-Invasive 64 mmHg mmHg 04/22/2023 13:22 EDT Systolic Blood Pressure Non-Invasive 135 mmHg mmHg Diastolic Blood Pressure Non-Invasive 76 mmHg mmHg 04/22/2023 13:20 EDT Heart Rate Monitored 89 bpm bpm Respiratory Rate - Anes 24 br/min br/min 04/22/2023 13:19 EDT Systolic Blood Pressure Non-Invasive 177 mmHg mmHg Diastolic Blood Pressure Non-Invasive 84 mmHg mmHg 04/22/2023 13:15 EDT Heart Rate Monitored 92 bpm bpm Respiratory Rate - Anes 0 br/min br/min Systolic Blood Pressure Non-Invasive 179 mmHg mmHg Diastolic Blood Pressure Non-Invasive 83 mmHg mmHg 04/22/2023 10:50 EDT Temperature Temporal Artery 36.2 DegC Peripheral Pulse Rate 101 bpm HI Respiratory Rate 18 br/min Systolic Blood Pressure Non-Invasive 129 mmHg Diastolic Blood Pressure Non-Invasive 79 mmHg . Mental status: at preoperative baseline. Respiratory function: respirations are non-labored, Stable. Respiratory support: none. CV function: Stable. Cardiovascular support: none. Pain: Satisfactory. Nausea status: Satisfactory. Postoperative hydration status: within normal limits. Notes: Patient is sufficiently recovered from anesthesia to participate in the evaluation. No follow-up care needed. No complications post-anesthesia.. Digitally Signed by CHERYL ANTONOI MD on 04/22/2023 03:34 PM [facility] 04-22-2023 Anesthesiology Consult note Patient: YASMIN GREEN Age: 82 years Sex: Female : 1940 Associated Diagnoses: None Author: ADELA MARISCAL MD Preoperative Information Time of last food or liquid consumption: 04/21/2023 18:00:00 Anesthesia history Patient's history: negative. Family's history: negative. Health Status Allergies: Allergic Reactions (All) No Known Medication Allergies, Allergies (1) ActiveReaction No Known Medication AllergiesNone Documented Current medications: (Selected) Inpatient Medications Ordered Kefzol: 2 gram(s), 20 mL, 240 mL/hr, IV Push (INT), PREOP pharm LR 1,000 mL: 20 mL/hr, Intravenous, Stop: 04/22/23 22:59:00 EDT Documented Medications Documented Albuterol (Eqv-ProAir HFA) 90 mcg/inh inhalation aerosol: 1 puff(s), Inhalation, q4h, 0 Refill(s) CBD OIL: 1 mL, Oral, BID, 0 Refill(s) COLLAGEN POWDER: 1 SCOOP, Oral, qDay, 0 Refill(s) Restasis 0.05% ophthalmic emulsion: 1 drop(s), Eyes, both, BID, 30 EA, 0 Refill(s) Vitamin D3 25 mcg (1000 intl units) oral tablet: 25 mcg, 1 tab(s), Oral, qDay, 30 tab(s), 0 Refill(s) atorvastatin 20 mg oral tablet: 20 mg, 1 tab(s), Oral, qHS, 30 tab(s), 0 Refill(s) levothyroxine 112 mcg (0.112 mg) oral tablet: 112 mcg, 1 tab(s), Oral, qDay, 30 tab(s), 0 Refill(s) sertraline 50 mg oral tablet: 50 mg, 1 tab(s), Oral, qDay, take 1/2 tablet by mouth once daily, Medications (2) Active Scheduled: (1) ceFAZolin syringe 2 gram(s) 20 mL, IV Push (INT), PREOP pharm Continuous: (1) Lactated Ringers 1,000 mL 1,000 mL, Intravenous, 20 mL/hr PRN: (0) Problem list: Medical Contracture of palmar fascia / SNOMED CT 3070258241 / Confirmed Irritable bowel syndrome / SNOMED CT 01361816 / Confirmed Anxiety / SNOMED CT 42004851 / Confirmed Basal cell carcinoma / SNOMED CT 4660421 / Confirmed Benign neoplasm of colon / SNOMED CT 423980408 / Confirmed Diverticulosis of colon / SNOMED CT 2425206822 / Confirmed Hypercholesterolemia / SNOMED CT 95806250 / Confirmed Hypothyroidism / SNOMED CT 24581930 / Confirmed Chronic kidney disease stage 3 / SNOMED CT 2256427360 / Confirmed Asthma / SNOMED CT 241057724 / Confirmed Enlarged lymph node in neck / SNOMED CT 4754600453 / Confirmed, Active Problems (20) Anemia Anxiety Asthma Basal cell carcinoma Benign neoplasm of colon Cervical lymph node abscess Chronic kidney disease stage 3 Contracture of palmar fascia Diverticulitis Diverticulosis of colon Enlarged lymph node in neck Fever Glasses Headache Hypercholesterolemia Hypothyroidism Irritable bowel syndrome Left inguinal pain Personal history of COVID-19 Torn meniscus Histories Past Medical History: Resolved HEMORRHAGE OF GASTROINTESTINAL TRACT, UNSPECIFIED ([id number]): Resolved. Hemorrhage of rectum and anus ([id number]): Resolved. Hemorrhoids ([id number]): Resolved. Family History: Asthma Mother Father Parkinson's disease Mother Prostate cancer Father Procedure history: Colonoscopy ([id number]) on 04/09/2019 at 78 Years. Blepharoplasty of bilateral upper eyelids ([id number]) in 2017 at 76 Years. Total abdominal hysterectomy ([id number]) in the month of 10/1982 at 41 Years. Appendectomy ([id number]) in the month of 10/1960 at 19 Years. Social History Social & Psychosocial Habits Alcohol 04/20/2023 Use: Current Type: Wine Frequency: 1-2 times per month Substance Abuse 04/20/2023 Use: Current Type: CBD OIL Tobacco 04/19/2023 Tobacco Use: Never (less than 100 in l Home/Environment 04/20/2023 Domestic Concerns Denies . Physical Examination Vital Signs 04/22/2023 10:50 EDT Temperature Temporal Artery 36.2 DegC Peripheral Pulse Rate 101 bpm HI Respiratory Rate 18 br/min Systolic Blood Pressure Non-Invasive 129 mmHg Diastolic Blood Pressure Non-Invasive 79 mmHg Vital Signs(last 24 hrs) Last Charted Resp Rate 18 br/min (APR 22 10:50) [id number] mmHg (APR 22 10:50) DBP79 mmHg (APR 22 10:50) Measurements from flowsheet : Measurements 04/22/2023 10:50 EDT Height 162.6 cm Height in inches 64 inch(es) Admission Weight 73.1 kg Weight Lbs 160.8 lb Weight Method Actual [place] Body Weight 54.74 kg Type of Scale Used Bed scale Admission Body Mass Index 27.65 m2 04/22/2023 10:46 EDT Body Mass Index In Error kg/m2 (In Error) Body Mass Index In Error kg/m2 (In Error) Pain assessment: Pain Assessment 04/22/2023 10:50 EDT Primary Pain Intensity 0 Pain Scale Type 0-10 Pain scale . General: Alert and oriented, No acute distress. Airway: Normal temporomandibular joint mobility, Nares patent, Trachea midline. Mallampati classification: II (soft palate, fauces, uvula visible). Head: Normocephalic, Atraumatic. Dentition Evaluation: Intact, Own teeth, Capped teeth. Respiratory: Lungs are clear to auscultation. Cardiovascular: Normal rate, Regular rhythm. Neurologic: Alert, Oriented. Review / Management Results review: No qualifying data available , Lab results 04/22/2023 12:45 EDT SN - CAt - Case Attendee SN - CAt - Case Attendee SN - CAt - Case Attendee SN - CAt - Case Attendee SN - CAt - Case Attendee SN - CAt - Case Attendee SN - CAt - Case Attendee SN - CAt - Case Attendee SN - CAt - Case Attendee SN - CAt - Case Attendee SN - CAt - Case Attendee SN - CAt - Case Attendee SN - CAt - Role Performed Anesthesiologist SN - CAt - Role Performed GOLD BURNISHER SN - CAt - Role Performed General Counselor 1 SN - CAt - Role Performed Scrub 1 SN - CAt - Role Performed Prepleater 1 SN - CAt - Role Performed Prepleater 1 04/22/2023 12:44 EDT SN - CAt - Case Attendee SN - CAt - Case Attendee SN - CAt - Role Performed Primary Surgeon 04/22/2023 12:44 EDT SN - Proc - Actual Procedure BIOPSY OF ENLARGED LEFT CERVICAL LYMPH NODE 04/22/2023 10:56 EDT Individuals Taught Patient, Spouse Learning Readiness Willing to learn Barriers to Learning None evident Teaching Method Demonstration, Electronic, Explanation Preferred Written Language Yi Preferred Spoken Language Yi Surgical Site Infection Prevention SSI FAQ provided, Hand hygiene Infection Prevention Teaching Evaluation Verbalizes/Nonverbally indicates understanding Ed-Safety Verbalizes/Nonverbally indicates understanding 04/22/2023 10:55 EDT lidocaine 2.5 mg mg Lactated Ringers Injection Begin Bag 1,000 mL mL 04/22/2023 10:50 EDT Height 162.6 cm Height in inches 64 inch(es) Admission Weight 73.1 kg Weight Lbs 160.8 lb Weight Method Actual [place] Body Weight 54.74 kg Type of Scale Used Bed scale Admission Body Mass Index 27.65 m2 Temperature Temporal Artery 36.2 DegC Peripheral Pulse Rate 101 bpm HI Respiratory Rate 18 br/min Systolic Blood Pressure Non-Invasive 129 mmHg Diastolic Blood Pressure Non-Invasive 79 mmHg Primary Pain Intensity 0 Pain Scale Type 0-10 Pain scale Nail Bed Color [place] Capillary Refill < 2 seconds Heart Rhythm Regular Respirations Unlabored Respiratory Pattern Regular Breath Sounds Auscultated Anterior and posterior [place]ob[place] Breath Sounds Clear Oxygen Saturation 97 % Abdomen Description Non-distended Urinary Elimination Voiding, no difficulties Skin Description Dry Skin Integrity Intact IV Present Present Forearm Right 04/22/2023 20 gauge Peripheral IV Activity: Assessed Peripheral IV Dressing Condition: Clean, Dry, Intact Peripheral IV Line Status/Patency: Flushes easily Peripheral IV Site Condition: No complications Peripheral IV Equipment: Manual Peripheral IV Number of Attempts: 1 Characteristics of Speech Clear Level of Consciousness Alert Strength All Extremities Strong Violence Risk Confused No Violence Risk Irritable No Violence Risk Boisterous No Violence Risk Verbal Threats No Violence Risk Physical Threats No Violence Risk Attacking Objects No Violence Risk Predictor Score 0 Affect/Behavior Appropriate, Calm, Cooperative Orientation Oriented x 4 Allergies No Consent Form Signed Yes Patient Dressed In Hospital gown, No undergarments CHG Preoperative Wash/Wipe Night before procedure, Day of procedure, Site specific wipe Preop Nasal Swab Povidone-Iodine History & Physical On Chart Yes Obstructive Sleep Apnea Assess Completed Yes MRSA/MSSA Protocol No Standard Safety ID band on, Allergy Band on, Call device within reach, Bed in low position, Wheels locked, Upper/Half-Length side-rails up, Phone within reach, Visitor at bedside, Safety level maintained Patient ID Band on and Verified Yes Implants Verified Yes Pacemaker/AICD Verified Yes Last Fluid Intake 04/21/2023 20:00 Last Food Intake 04/21/2023 20:00 Last Void 04/22/2023 10:56 04/22/2023 10:48 EDT SN - Preop - CTm Pt in SDS Room 04/22/2023 10:25 SN - Preop - CTm Pt Ready for OR/Proced 04/22/2023 10:47 04/22/2023 10:46 EDT Designated Person #2 We May Share PHI - jairon Green Privacy Restrictions Requested None Body Mass Index In Error kg/m2 (In Error) Body Mass Index In Error kg/m2 (In Error) Sensory Deficits None Safety Brochure Information Reviewed Yes Jaymie Guzman Video Viewed Previously viewed Teaching Evaluation Verbalizes/Nonverbally indicates understanding Discharge To, Anticipated Home independently Personal Devices, Patient Valuables None Admission Note-Nursing Same Day Patient History (Modified) 04/21/2023 13:41 EDT Surgery Scheduled On Date/Time 04/22/2023 12:20 Patient Aware Date/Time Of Surgery Yes Arrival Time the Day of Surgery 04/22/2023 10:20 Patient Aware of Arrival Time Yes Pre-Op Patient Education NPO after midnight, No smoking after midnight, No makeup, No jewelry, Responsible Democrat, Aware of surgery location, Pre-op education done, 1 bottle CHG wash with instructions given, Instructed to take ordered medications, Instructed to bring home medications (Modified) SN - Preprocedure Comments Spoke with patient, Verbalizes/Nonverbally indicates understanding Admission Note-Nursing Date\Time Correction 04/21/2023 7:28 EDT Aure ECHEVERRIA . Assessment and Plan Citizen Of [place] Society of Anesthesiologists (ASA) physical status classification: Class II. Anesthetic Preoperative Plan Anesthetic technique: General. Induction: intravenously. Maintenance airway: Laryngeal mask airway. Postoperative pain management: Per surgeon. Risks discussed: nausea, vomiting, headache, sore throat, dental injury, hypotension, allergic reaction, serious complications. Informed consent: signed by patient. Notes: asthma, hypothyroid, anxiety, CKD stage 3, CBD oil last use 3 days ago. Digitally Signed by ADELA MARISCAL MD on 04/22/2023 12:52 PM [facility] 04-11-2023 Note HNO ID: [id number] Author: Jonathan Vanegas MD Service: ? Author Type: Physician Type: Progress Notes Filed: 04/12/2023 12:56 AM Note Text: This note was created using NoteWriter. Subjective Yasmin Green is a 82 year old female. Patient presents with: Established Patient: Follow up results SUBJECTIVE: Yasmin Green is a 82 year old year old lady here today for follow up appointment for review of medical conditions. Noted month of LLQ discomfort. Trouble with BMs and emptying bladder Constipated past month. Reviewed CT scan and US PAST MEDICAL HISTORY Diagnosis Date Anxiety state 05/12/2007 BCC (basal cell carcinoma of skin) 2007 Dr. Perdue Benign neoplasm of colon Contracture of palmar fascia right hand Diverticulosis of colon (without mention of hemorrhage) Hemorrhage of gastrointestinal tract, unspecified Hemorrhage of rectum and anus Hemorrhoids Hypercholesteremia LDL>200 prior to meds Internal hemorrhoids without mention of complication Irritable bowel syndrome PMH - PAST MEDICAL HISTORY OF 2008 pre melanoma Unspecified hypothyroidism Current Outpatient Medications Medication Sig ferrous sulfate 325 mg (65 mg iron) tablet Take 1 tablet by mouth every other day. levothyroxine (SYNTHROID) 112 mcg tablet Take 1 tablet by mouth once daily. ondansetron orally disintegrating (ZOFRAN ODT) 4 mg disintegrating tablet Take 1 tablet by mouth every 6 hours as needed for nausea/vomiting. albuterol HFA (PROAIR HFA) 90 mcg/actuation inhaler Inhale 2 Puffs as instructed every 4 hours as needed for wheezing/shortness of breath. sertraline (ZOLOFT) 50 mg tablet Take 0.5 tablets by mouth once daily. (Patient taking differently: Take 50 mg by mouth once daily.) atorvastatin (LIPITOR) 20 mg tablet Take 1 tablet by mouth once daily. fluticasone-salmeterol (ADVAIR DISKUS) 250-50 mcg/dose inhaler Inhale 1 Puff as instructed twice daily. RINSE AND GARGLE MOUTH WITH WATER AFTER EACH USE. (Patient taking differently: Inhale 1 Puff as instructed twice daily as needed. RINSE AND GARGLE MOUTH WITH WATER AFTER EACH USE.) cycloSPORINE 0.05 % ophthalmic emulsion Use 1 Drop in both eyes twice daily. Cholecalciferol, Vitamin D3, 2,000 unit ORAL Cap Take one(1) tablet daily. psyllium (METAMUCIL SMOOTH TEXTURE) 28 % ORAL Pack Take as directed. No current facility-administered medications for this visit. Review of Systems Objective BP 132/78 Pulse 88 Temp (!) 38.1 ?C (100.5 ?F) Resp 18 Wt 75.8 kg (167 lb) SpO2 96% BMI 29.22 kg/m? Physical Exam Constitutional: Appearance: Normal appearance. Eyes: Conjunctiva/sclera: Conjunctivae normal. Neck: Pulmonary: Effort: Pulmonary effort is normal. Neurological: General: No focal deficit present. Mental Status: She is alert and oriented to person, place, and time. Psychiatric: Attention and Perception: Attention and perception normal. Mood and Affect: Affect normal. Mood is anxious. Speech: Speech normal. Behavior: Behavior normal. Thought Content: Thought content normal. Cognition and Memory: Cognition normal. Reviewed results of CT and ultrasound Assessment and Plan Encounter Diagnosis ICD-10-CM 1. Lymphadenopathy of left cervical region R59.[address] Henning recommended referral to ENT for excision biopsy, not FNA--this was discussed with patient and and daughter 2. Pelvic mass R19.00 3. Lymphadenopathy, abdominal R59.0 4. Constipation by outlet obstruction K59.02 Mass pressing on sigmoid colon appears to be contributing to constipation symptoms.Low residual diet, miralax, MOM and dulcolax discussed. 5. Incomplete emptying of bladder R33.9 Feels like not able to completely empty bladder; pressure on bladder by pelvic mass discussed.Will keep staying hydrated though Above issues addressed with patient. Patient involved in shared decision making for management of medical issues. History and medications reviewed. Epic updated as needed Refills and/or prescriptions taken care of and meds adjusted as indicated after reviewed history, exam and labs. Health Maintenance reviewed. Updated record and/or ordered tests as recorded. Reviewed results of studies with patient and family present. Needs tissue biopsy to make diagnosis--ENT through [facility] recommended for doing excisional biopsy then see oncology and/or other providers based on results. If not able to alleviate obstructive .symptoms so that able to get adequate food and fluid intake to maintain nutrition and hydration, would need to go to ER if severe symptoms, or to outpatient specialists oncology/radonc/surgery as indicated to relieve the obstruction. Jonathan Vanegas MD [facility] 04-07-2023 Note HNO ID: [id number] Author: RT Mariposa(Kenia) Service: ? Author Type: Administrative Appeals Tribunal Member Type: Progress Notes Filed: 04/07/2023 3:53 PM Note Text: Radiology Service Progress Note PATIENT NAME: Yasmin Green DATE OF SERVICE: April 07, 2023 TIME: 3:52 PM PATIENT IDENTITY VERIFICATION COMPLETED USING TWO (2) IDENTIFIERS: Name and Date of confirmed by patient verbally. FALL SCREENING: Has the patient had 2 falls in the last year or 1 fall with injury or currently using an Ambulatory Assistive Device (Walker, Cane, Wheelchair, Crutches, etc.)? No PATIENT GENDER DATA: Female. status: : No status: NO. PATIENT RELEVANT IMPLANT DATA REVIEWED: Yes RADIOLOGY DEPARTMENT: CT; Exam(s) Completed: Abdomen/Pelvis PERIPHERAL IV DATA: Not applicable SIGNED BY: RT Lissy(R) April 07, 2023 3:52 PM [facility] 04-07-2023 History of Presen t illness Narrative Radiology Service Progress Note PATIENT NAME: Yasmin Green DATE OF SERVICE: April 07, 2023 TIME: 3:52 PM PATIENT IDENTITY VERIFICATION COMPLETED USING TWO (2) IDENTIFIERS: Name and Date of confirmed by patient verbally. FALL SCREENING: Has the patient had 2 falls in the last year or 1 fall with injury or currently using an Ambulatory Assistive Device (Walker, Cane, Wheelchair, Crutches, etc.)? No PATIENT GENDER DATA: Female. status: : No status: NO. PATIENT RELEVANT IMPLANT DATA REVIEWED: Yes RADIOLOGY DEPARTMENT: CT; Exam(s) Completed: Abdomen/Pelvis PERIPHERAL IV DATA: Not applicable SIGNED BY: RT Lissy(Kenia) April 07, 2023 3:52 PM documented in this encounter [facility] 04-04-2023 Note HNO ID: [id number] Author: Jolie Tang APRN.QA INTERN Service: ? Author Type: Nurse Specialist Type: Progress Notes Filed: 04/05/2023 7:24 AM Note Text: SUBJECTIVE Yasmin Green is a 82 year old female. PMH significant for ACTIVE PROBLEM LIST Benign Neoplasm of Colon Anxiety State Hypothyroidism Irritable Bowel Syndrome Hemorrhage of Gastrointestinal Tract, Unspecified Internal Hemorrhoids External Hemorrhoids Hypercholesteremia Stage 3 Chronic Kidney Disease (Hcc) She presents with 2 weeks of symptoms that are stable. Covid test at home: negative Drinking a lot. Very thirsty. Not eating much Symptoms include: Fever (?100.4F): Yes 99.5 F in evenings since last seen. 100.3F Chills: No Cough: No Shortness of breath: No or Difficulty breathing: No Fatigue: Yes Muscle aches: No Headache: Yes frontal New loss of smell or taste: No Sore throat: No Nasal congestion: No or Rhinorrhea: No Nausea: Yes or Vomiting: No Diarrhea: No Heartburn: none reported Reflux: none reported BRBPR:none reported Black tarry:none reported Today reports left upper quadrant to feel sharp or like a catch in her left upper quadrant near her ribs. She notes lower mid abdominal pain, achy, sensation of fullness. She reports fever 99.5 yesterday, fever in evenings persisting since last seen. She notes fullness or pressure sensation in her lower abdomen. There is a feeling that she has to urinate all the time in her lower abdomen. 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 Stool cultures not yet done. She reports mucus from her vagina x2 since last seen. No recent prior occurrence. Does not seen POLITICAL ORGANIZER. Notes left side of neck swelling and small mass palpable for ~1-2 months. Continues unchanged. US completed but not yet reviewed by radiologist. Last colonoscopy 2019, [facility]. Diverticulosis in sigmoid colon noted. 5 mm polyp in the sigmoid colon removed. Follow-up in 5 years. Exposures: Sick contacts? No Family or close contacts with confirmed/probable COVID-19 in last 14 days? No OBJECTIVE PHYSICAL EXAM: BP 136/80 Pulse 106 Resp 16 Wt 75.3 kg (166 lb) BMI 29.05 kg/m? General appearance: alert, cooperative, pleasant, in no acute distress Head: Normocephalic Eyes: conjunctiva/corneas normal Ears: R TM - clear with good landmarks, nl light reflex, L TM - clear with good landmarks, nl light reflex Nose: clear Oropharynx: moist without lesions Neck: supple, no general cervical lymphadenopathy, swelling and small palpable mass left lateral neck base, pre-clavicular Abdomen: Tender to palpation left upper quadrant, mid lower abdomen Heart: regular rate and rhythm, without murmur Lungs: clear to auscultation, without rales or wheeze, good air exchange Extremities: no edema ASSESSMENT/PLAN (Z13.820) Encounter for screening for osteoporosis (primary encounter diagnosis) (E03.9) Acquired hypothyroidism (Z78.0) Asymptomatic postmenopausal status (N18.30) Stage 3 chronic kidney disease, unspecified whether stage 3a or 3b CKD (HCC) (D72.829) Leukocytosis, unspecified type (D75.839) Thrombocytosis (R11.0) Nausea (R50.9) Fever, unspecified (R22.1) Localized swelling, mass and lump, neck (R74.8) Elevated alkaline phosphatase level (R10.12) LUQ abdominal pain (R50.9) Fever, unspecified fever cause (E55.9) Vitamin D deficiency, unspecified (Z78.0) Asymptomatic menopausal state ASSESSMENT/PLAN: 1. Encounter for screening for osteoporosis - ICD9: V82.81, ICD10: Z13.820 3. Asymptomatic postmenopausal status - ICD9: V49.81, ICD10: Z78.0 Elevated alkaline phosphatase, BMD recommended 2. Acquired hypothyroidism - ICD9: 244.9, ICD10: E03.9 Suboptimal treatment, Will increase dose of levothyroxine from 100 mcg to 112 mcg daily check labs 3 months - LEVOTHYROXINE 112 MCG TABLET - TSH BLD - T4 FREE/FREE THYROX 4. Stage 3 chronic kidney disease, unspecified whether stage 3a or 3b CKD (HCC) - ICD9: 585.3, ICD10: N18.30 Creatinine Date Value Ref Range Status 03/31/2023 0.99 (H) 0.58 - 0.96 mg/dL Final 09/22/2022 0.85 0.58 - 0.96 mg/dL Final 09/22/2021 0.93 0.58 - 0.96 mg/dL Final 05/08/2019 0.91 0.58 - 0.96 mg/dL Final stable 8. Fever, unspecified - ICD9: 780.60, ICD10: R50.9 (primary diagnosis) 5. Leukocytosis, unspecified type - ICD9: 288.60, ICD10: D72.829 6. Thrombocytosis - ICD9: 238.71, ICD10: D75.839 7. Nausea - ICD9: 787.02, ICD10: R11.0 Iron deficiency She reports ongoing low-grade fever of unknown cause, persisting since last seen, now going on for about 2 weeks Recommend further evaluation Discussed with PCP, recommended referral to gastroenterology, need for EGD/colonoscopy for further evaluation of iron deficiency Iron every other day for now. Blood cultures ordered Urinalysis completed, will go ahead and treat for UTI to see if this helps with fever - CT ABD/PEL WO IVCON - ENTER (more content not included)... [facility] 04-04-2023 History of Presen t illness Narrative SUBJECTIVE Yasmin Green is a 82 year old female. PMH significant for ACTIVE PROBLEM LIST Benign Neoplasm of Colon Anxiety State Hypothyroidism Irritable Bowel Syndrome Hemorrhage of Gastrointestinal Tract, Unspecified Internal Hemorrhoids External Hemorrhoids Hypercholesteremia Stage 3 Chronic Kidney Disease (Hcc) She presents with 2 weeks of symptoms that are stable. Covid test at home: negative Drinking a lot. Very thirsty. Not eating much Symptoms include: Fever (?100.4F): Yes 99.5 F in evenings since last seen. 100.3F Chills: No Cough: No Shortness of breath: No or Difficulty breathing: No Fatigue: Yes Muscle aches: No Headache: Yes frontal New loss of smell or taste: No Sore throat: No Nasal congestion: No or Rhinorrhea: No Nausea: Yes or Vomiting: No Diarrhea: No Heartburn: none reported Reflux: none reported BRBPR:none reported Black tarry:none reported Today reports left upper quadrant to feel sharp or like a catch in her left upper quadrant near her ribs. She notes lower mid abdominal pain, achy, sensation of fullness. She reports fever 99.5 yesterday, fever in evenings persisting since last seen. She notes fullness or pressure sensation in her lower abdomen. There is a feeling that she has to urinate all the time in her lower abdomen. 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 Stool cultures not yet done. She reports mucus from her vagina x2 since last seen. No recent prior occurrence. Does not seen POLITICAL ORGANIZER. Notes left side of neck swelling and small mass palpable for ~1-2 months. Continues unchanged. US completed but not yet reviewed by radiologist. Last colonoscopy 2019, [facility]. Diverticulosis in sigmoid colon noted. 5 mm polyp in the sigmoid colon removed. Follow-up in 5 years. Exposures: Sick contacts? No Family or close contacts with confirmed/probable COVID-19 in last 14 days? No OBJECTIVE PHYSICAL EXAM: BP 136/80 Pulse 106 Resp 16 Wt 75.3 kg (166 lb) BMI 29.05 kg/m General appearance: alert, cooperative, pleasant, in no acute distress Head: Normocephalic Eyes: conjunctiva/corneas normal Ears: R TM - clear with good landmarks, nl light reflex, L TM - clear with good landmarks, nl light reflex Nose: clear Oropharynx: moist without lesions Neck: supple, no general cervical lymphadenopathy, swelling and small palpable mass left lateral neck base, pre-clavicular Abdomen: Tender to palpation left upper quadrant, mid lower abdomen Heart: regular rate and rhythm, without murmur Lungs: clear to auscultation, without rales or wheeze, good air exchange Extremities: no edema ASSESSMENT/PLAN (Z13.820) Encounter for screening for osteoporosis (primary encounter diagnosis) (E03.9) Acquired hypothyroidism (Z78.0) Asymptomatic postmenopausal status (N18.30) Stage 3 chronic kidney disease, unspecified whether stage 3a or 3b CKD (HCC) (D72.829) Leukocytosis, unspecified type (D75.839) Thrombocytosis (R11.0) Nausea (R50.9) Fever, unspecified (R22.1) Localized swelling, mass and lump, neck (R74.8) Elevated alkaline phosphatase level (R10.12) LUQ abdominal pain (R50.9) Fever, unspecified fever cause (E55.9) Vitamin D deficiency, unspecified (Z78.0) Asymptomatic menopausal state ASSESSMENT/PLAN: 1. Encounter for screening for osteoporosis - ICD9: V82.81, ICD10: Z13.820 3. Asymptomatic postmenopausal status - ICD9: V49.81, ICD10: Z78.0 Elevated alkaline phosphatase, BMD recommended 2. Acquired hypothyroidism - ICD9: 244.9, ICD10: E03.9 Suboptimal treatment, Will increase dose of levothyroxine from 100 mcg to 112 mcg daily check labs 3 months - LEVOTHYROXINE 112 MCG TABLET - TSH BLD - T4 FREE/FREE THYROX 4. Stage 3 chronic kidney disease, unspecified whether stage 3a or 3b CKD (HCC) - ICD9: 585.3, ICD10: N18.30 Creatinine Date Value Ref Range Status 03/31/2023 0.99 (H) 0.58 - 0.96 mg/dL Final 09/22/2022 0.85 0.58 - 0.96 mg/dL Final 09/22/2021 0.93 0.58 - 0.96 mg/dL Final 05/08/2019 0.91 0.58 - 0.96 mg/dL Final stable 8. Fever, unspecified - ICD9: 780.60, ICD10: R50.9 (primary diagnosis) 5. Leukocytosis, unspecified type - ICD9: 288.60, ICD10: D72.829 6. Thrombocytosis - ICD9: 238.71, ICD10: D75.839 7. Nausea - ICD9: 787.02, ICD10: R11.0 She reports ongoing low-grade fever of unknown cause, persisting since last seen, now going on for about 2 weeks Recommend further evaluation Discussed with PCP, recommended referral to gastroenterology, need for EGD/colonoscopy for further evaluation of iron deficiency Blood cultures ordered Urinalysis completed, we will go ahead and treat for UTI to see if this helps with fever - CT ABD/PEL WO IVCON - ENTERIC CONTRAST (RADIOLOGY PROCEDURE) 9. Localized swelling, mass and lump, neck - ICD9: 784.2, ICD10: R22.1 Ultrasound results are still pending review 10. Elevated alkaline phosphatase level - ICD9: 790.5, ICD10: R74.8 Further evaluation of alkaline phosphatase Refer to endocrinology if needed - GGT BLD - VITAMIN D 25 HYDROXY - PTH INTACT BLD - DXA-AXIAL SKELETON 11. LUQ abdominal pain - ICD9: 789.02, ICD10: R10.12 - CT ABD/PEL WO IVCON - ENTERIC CONTRAST (RADIOLOGY PROCEDURE) 12. Fever, unspecified fever cause - ICD9: 780.60, ICD10: R50.9 - BLOOD CULTURE - BLOOD CULTURE 13. Vitamin D deficiency, unspecified - ICD9: 268.9, ICD10: E55.9 - VITAMIN D 25 HYDROXY 14. Asymptomatic menopausal state - ICD9: V49.81, ICD10: Z78.0 - DXA-AXIAL SKELETON 1 week follow up MD Jolie Bray APRN.CNS Medical Decision Making: Problems: Moderate: New problem with uncertain prognosis Data: Unique test(s) ordered: 3+ Risk: Low: Low risk from testing/treatment Medical Decision Making Level: 4 - Moderate documented in this encounter [facility] 04-04-2023 Instructions Jolie Tang APRN.CNS - 04/04/2023 1:50 PM EDT BONE MINERAL DENSITY PATIENT INSTRUCTIONS ======== Bone mineral density testing measures the amount of calcium in certain parts of your bones. This information determines how strong your bones are. The test is used to detect osteoporosis, a disease in which the bone's mineral content and density are low, increasing a person's risk of fractures. The lumbar spine (lower back) and the hip are the skeletal sites usually examined. For the test, remember that: 1. You cannot take this test if you are . 2. Eat a normal diet on the day of the test. 3. Take your medications as you normally would. 4. DO NOT take calcium supplements (such as Tums) for 24 hours before the test. 5. On the day of the test, leave valuables (jewelry or credit cards) at home. 6. The test should be performed prior to oral, rectal or IV contrast studies, or at least 7 days after any of these studies. For the test, you may be asked to wear a hospital gown. You will lie on your back, on a padded table, in a comfortable position. Generally, you can resume your usual activities immediately. documented in this encounter [facility] 03-31-2023 Note HNO ID: [id number] Author: RT Deonna(R) Service: Radiology Author Type: Technologist Type: Progress Notes Filed: 03/31/2023 4:22 PM Note Text: Radiology Service Progress Note PATIENT NAME: Yasmin Green DATE OF SERVICE: March 31, 2023 TIME: 4:21 PM PATIENT IDENTITY VERIFICATION COMPLETED USING TWO (2) IDENTIFIERS: Name and Date of confirmed by patient verbally. FALL SCREENING: Has the patient had 2 falls in the last year or 1 fall with injury or currently using an Ambulatory Assistive Device (Walker, Cane, Wheelchair, Crutches, etc.)? No PATIENT GENDER DATA: Female. status: : No status: N/A PATIENT RELEVANT IMPLANT DATA REVIEWED: Not Applicable RADIOLOGY DEPARTMENT: Ultrasound PERIPHERAL IV DATA: Not applicable SIGNED BY: Amina Mccall Rdms March 31, 2023 4:21 PM [facility] 03-31-2023 Miscellaneous Notes Pt called and is notified of providers results and instructions. Pt voices understanding. Pt will come in tomorrow to get labs drawn. Neema Izaguirre RN Platelets and WBCs are elevated. This may be due to infection, inflammation or other cause. Recommend a repeat CBC with blood smear and iron studies before her visit next week if possible.If not can do on return on Tuesday documented in this encounter [facility] 03-31-2023 History of Presen t illness Narrative Radiology Service Progress Note PATIENT NAME: Yasmin Green DATE OF SERVICE: March 31, 2023 TIME: 4:21 PM PATIENT IDENTITY VERIFICATION COMPLETED USING TWO (2) IDENTIFIERS: Name and Date of confirmed by patient verbally. FALL SCREENING: Has the patient had 2 falls in the last year or 1 fall with injury or currently using an Ambulatory Assistive Device (Walker, Cane, Wheelchair, Crutches, etc.)? No PATIENT GENDER DATA: Female. status: : No status: N/A PATIENT RELEVANT IMPLANT DATA REVIEWED: Not Applicable RADIOLOGY DEPARTMENT: Ultrasound PERIPHERAL IV DATA: Not applicable SIGNED BY: Amina Mccall Rdms March 31, 2023 4:21 PM documented in this encounter [facility] 03-29-2023 Note HNO ID: [id number] Author: Jolie Tang APRN.QA INTERN Service: ? Author Type: Nurse Specialist Type: Progress Notes Filed: 03/29/2023 11:21 AM Note Text: SUBJECTIVE Yasmin Green is a 82 year old female. PMH significant for ACTIVE PROBLEM LIST Benign Neoplasm of Colon Anxiety State Hypothyroidism Irritable Bowel Syndrome Hemorrhage of Gastrointestinal Tract, Unspecified Internal Hemorrhoids External Hemorrhoids Hypercholesteremia She presents with 1 week of symptoms that are stable. Covid test at home: negative Urgent care: no Drinking a lot. Very thirsty. Not eating much Symptoms include: Fever (?100.4F): Yes 100.3F most evenings or Chills: No Cough: No Shortness of breath: No or Difficulty breathing: No Fatigue: Yes Muscle aches: No Headache: Yes frontal New loss of smell or taste: No Sore throat: No Nasal congestion: No or Rhinorrhea: No Nausea: Yes or Vomiting: No Diarrhea: No No abdominal pain. 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 No reported travel. No medication changes reported. Notes her is in the hospital following an accidental injury. OTC meds/remedies that patient has tried: acetaminophen. Notes left side of neck swelling and small mass palpable for ~1-2 months High risk category assessment Age > 60 years old Exposures: Sick contacts? No Family or close contacts with confirmed/probable COVID-19 in last 14 days? No OBJECTIVE PHYSICAL EXAM: BP 132/72 Pulse 105 Temp 36.2 ?C (97.2 ?F) Resp 16 Wt 75.3 kg (166 lb) SpO2 96% BMI 29.05 kg/m? General appearance: alert, cooperative, pleasant, in no acute distress Head: Normocephalic Eyes: conjunctiva/corneas normal Ears: R TM - clear with good landmarks, nl light reflex, L TM - clear with good landmarks, nl light reflex Nose: clear Oropharynx: moist without lesions Neck: supple, no general cervical lymphadenopathy, swelling and small palpable mass left lateral neck base, pre-clavicular Heart: regular rate and rhythm, without murmur Lungs: clear to auscultation, without rales or wheeze, good air exchange ASSESSMENT/PLAN (R11.0) Nausea (primary encounter diagnosis) (R53.81) Malaise (R50.9) Fever, unspecified (R22.1) Localized swelling, mass and lump, neck ASSESSMENT/PLAN: 1. Nausea - ICD9: 787.02, ICD10: R11.0 (primary diagnosis) - COVID WITH FLUA+B, ROUTINE - PROMETHAZINE 12.5 MG TABLET - CBC + DIFF - COMP METABOLIC PANEL - TSH BLD - ENTERIC BACTERIAL PANEL BY PCR 2. Malaise - ICD9: 780.79, ICD10: R53.81 - COVID WITH FLUA+B, ROUTINE - PROMETHAZINE 12.5 MG TABLET - CBC + DIFF - COMP METABOLIC PANEL - TSH BLD - ENTERIC BACTERIAL PANEL BY PCR 3. Fever, unspecified - ICD9: 780.60, ICD10: R50.9 - COVID WITH FLUA+B, ROUTINE - PROMETHAZINE 12.5 MG TABLET - CBC + DIFF - COMP METABOLIC PANEL - TSH BLD - ENTERIC BACTERIAL PANEL BY PCR 4. Localized swelling, mass and lump, neck - ICD9: 784.2, ICD10: R22.1 - US HEAD/NECK SOFT TISSUE OTHER Advised: labs today recheck Tuesday or Tuesday Continue to drink plenty of fluid. Take ondansetron as needed for nausea and vomiting. Drink sufficient fluids, aim for 64 ounces per day Drink at least 8 ounces of Pedialyte, broth or Gatorade daily until feeling improved. Eat as tolerated, try smaller meals while feeling ill. Try eating saltine crackers, broth soups, starches/cereals (potatoes, noodles, rice, wheat, and oat) with some salt are excellent foods to consider. In addition, crackers, bananas, yogurt, soups, and boiled vegetables are also good choices Let us know if not feeling improved. Go to ER if unable to keep fluids or food down for 24 hours or greater Jolie Tang APRN.CNS Medical Decision Making: Problems: Low: Acute, uncomplicated illness or injury Data: Unique test(s) ordered: 3+ Risk: Moderate: Drug management Medical Decision Making Level: 4 - Moderate [facility] 03-29-2023 Instructions Jolie Tang APRN.CNS - 03/29/2023 10:32 AM EDT Continue to drink plenty of fluid. Take ondansetron as needed for nausea and vomiting. Drink sufficient fluids, aim for 64 ounces per day Drink at least 8 ounces of Pedialyte, broth or Gatorade daily until feeling improved. Eat as tolerated, try smaller meals while feeling ill. Try eating saltine crackers, broth soups, starches/cereals (potatoes, noodles, rice, wheat, and oat) with some salt are excellent foods to consider. In addition, crackers, bananas, yogurt, soups, and boiled vegetables are also good choices Let us know if not feeling improved. Go to ER if unable to keep fluids or food down for 24 hours or greater documented in this encounter [facility] 03-29-2023 History of Presen t illness Narrative SUBJECTIVE Yasmin Green is a 82 year old female. PMH significant for ACTIVE PROBLEM LIST Benign Neoplasm of Colon Anxiety State Hypothyroidism Irritable Bowel Syndrome Hemorrhage of Gastrointestinal Tract, Unspecified Internal Hemorrhoids External Hemorrhoids Hypercholesteremia She presents with 1 week of symptoms that are stable. Covid test at home: negative Urgent care: no Drinking a lot. Very thirsty. Not eating much Symptoms include: Fever (?100.4F): Yes 100.3F most evenings or Chills: No Cough: No Shortness of breath: No or Difficulty breathing: No Fatigue: Yes Muscle aches: No Headache: Yes frontal New loss of smell or taste: No Sore throat: No Nasal congestion: No or Rhinorrhea: No Nausea: Yes or Vomiting: No Diarrhea: No No abdominal pain. 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 No reported travel. No medication changes reported. Notes her is in the hospital following an accidental injury. OTC meds/remedies that patient has tried: acetaminophen. Notes left side of neck swelling and small mass palpable for ~1-2 months High risk category assessment Age > 60 years old Exposures: Sick contacts? No Family or close contacts with confirmed/probable COVID-19 in last 14 days? No OBJECTIVE PHYSICAL EXAM: BP 132/72 Pulse 105 Temp 36.2 C (97.2 F) Resp 16 Wt 75.3 kg (166 lb) SpO2 96% BMI 29.05 kg/m General appearance: alert, cooperative, pleasant, in no acute distress Head: Normocephalic Eyes: conjunctiva/corneas normal Ears: R TM - clear with good landmarks, nl light reflex, L TM - clear with good landmarks, nl light reflex Nose: clear Oropharynx: moist without lesions Neck: supple, no general cervical lymphadenopathy, swelling and small palpable mass left lateral neck base, pre-clavicular Heart: regular rate and rhythm, without murmur Lungs: clear to auscultation, without rales or wheeze, good air exchange ASSESSMENT/PLAN (R11.0) Nausea (primary encounter diagnosis) (R53.81) Malaise (R50.9) Fever, unspecified (R22.1) Localized swelling, mass and lump, neck ASSESSMENT/PLAN: 1. Nausea - ICD9: 787.02, ICD10: R11.0 (primary diagnosis) - COVID WITH FLUA+B, ROUTINE - PROMETHAZINE 12.5 MG TABLET - CBC + DIFF - COMP METABOLIC PANEL - TSH BLD - ENTERIC BACTERIAL PANEL BY PCR 2. Malaise - ICD9: 780.79, ICD10: R53.81 - COVID WITH FLUA+B, ROUTINE - PROMETHAZINE 12.5 MG TABLET - CBC + DIFF - COMP METABOLIC PANEL - TSH BLD - ENTERIC BACTERIAL PANEL BY PCR 3. Fever, unspecified - ICD9: 780.60, ICD10: R50.9 - COVID WITH FLUA+B, ROUTINE - PROMETHAZINE 12.5 MG TABLET - CBC + DIFF - COMP METABOLIC PANEL - TSH BLD - ENTERIC BACTERIAL PANEL BY PCR 4. Localized swelling, mass and lump, neck - ICD9: 784.2, ICD10: R22.1 - US HEAD/NECK SOFT TISSUE OTHER Advised: labs today recheck Tuesday or Tuesday Continue to drink plenty of fluid. Take ondansetron as needed for nausea and vomiting. Drink sufficient fluids, aim for 64 ounces per day Drink at least 8 ounces of Pedialyte, broth or Gatorade daily until feeling improved. Eat as tolerated, try smaller meals while feeling ill. Try eating saltine crackers, broth soups, starches/cereals (potatoes, noodles, rice, wheat, and oat) with some salt are excellent foods to consider. In addition, crackers, bananas, yogurt, soups, and boiled vegetables are also good choices Let us know if not feeling improved. Go to ER if unable to keep fluids or food down for 24 hours or greater Jolie Tang APRN.JEN Medical Decision Making: Problems: Low: Acute, uncomplicated illness or injury Data: Unique test(s) ordered: 3+ Risk: Moderate: Drug management Medical Decision Making Level: 4 - Moderate documented in this encounter [facility] 10-11-2022 Miscellaneous Notes Addressed in an office visit. documented in this encounter [facility] 10-09-2022 Note HNO ID: [id number] Author: Renato Ayala MD Service: ? Author Type: Physician Type: Progress Notes Filed: 10/09/2022 1:01 PM Note Text: AMBULATORY TELEPHONE VISIT Yasmin Green has consented to this telephone encounter. Persons Present: patient Chief Complaint/Reason: paxlovid HPI: She is vaccinated and symptoms began 10/07/22. Symptoms include temp of 99.0, cough, body aches, diarrhea x 3 days, and nausea. No sick contacts , she did go to [place], Denies SOB, chest pain, or dizziness. Drinking water and tea. Only medication that may interact is the lipitor which she was asked to hold if she is concerning Data Reviewed: Most recent labs and imaging results. Most recent labs Assessment: (U07.1) COVID-19 virus infection (primary encounter diagnosis) Plan: Take paxlovid Total Time Spent: 12 mins with the patient Renato Ayala MD [facility] 10-09-2022 History of Presen t illness Narrative AMBULATORY TELEPHONE VISIT Yasmin Green has consented to this telephone encounter. Persons Present: patient Chief Complaint/Reason: paxlovid HPI: She is vaccinated and symptoms began 10/07/22. Symptoms include temp of 99.0, cough, body aches, diarrhea x 3 days, and nausea. No sick contacts , she did go to [place], Denies SOB, chest pain, or dizziness. Drinking water and tea. Only medication that may interact is the lipitor which she was asked to hold if she is concerning Data Reviewed: Most recent labs and imaging results. Most recent labs Assessment: (U07.1) COVID-19 virus infection (primary encounter diagnosis) Plan: Take paxlovid Total Time Spent: 12 mins with the patient Renato Ayala MD documented in this encounter [facility] 10-09-2022 Miscellaneous Notes Estrella , Set her in for a virtual now for me and I will add her on Regards, Renato Ayala MD Pt calling to reports she did a covid home test today and tested positive. She states Dr. Vanegas told her in the past that if she ever tested + to call in for paxlovid. She is vaccinated and symptoms began 10/07/22. Symptoms include temp of 99.0, cough, body aches, diarrhea x 3 days, and nausea. Denies SOB, chest pain, or dizziness. Drinking water and tea. No VV provider appts available today. Asking [place] provider if can call her to discuss. Uses [employer] [facility]. Please call pt and advise. Thank you. PH: [phone] documented in this encounter [facility] 09-28-2022 Note HNO ID: [id number] Author: Jonathan Vanegas MD Service: ? Author Type: Physician Type: Progress Notes Filed: 10/21/2022 8:24 PM Note Text: This note was created using [employer]. Subjective Yasmin Green is a 81 year old female. HISTORY Yasmin Green is a 81 year old lady here for yearly exam and follow up appointment. Overall doing well. Fine on current meds. is her HCDPOA and has LW. Will drop off copy. Discussed aspirin. Has not had COVID. PAST MEDICAL HISTORY Diagnosis Date Anxiety state 05/12/2007 BCC (basal cell carcinoma of skin) 2007 Dr. Perdue Benign neoplasm of colon Contracture of palmar fascia right hand Diverticulosis of colon (without mention of hemorrhage) Hemorrhage of gastrointestinal tract, unspecified Hemorrhage of rectum and anus Hemorrhoids Hypercholesteremia LDL>200 prior to meds Internal hemorrhoids without mention of complication Irritable bowel syndrome PMH - PAST MEDICAL HISTORY OF 2008 pre melanoma Unspecified hypothyroidism Current Outpatient Medications Medication Sig sertraline (ZOLOFT) 50 mg tablet Take 0.5 tablets by mouth once daily. atorvastatin (LIPITOR) 20 mg tablet Take 1 tablet by mouth once daily. fluticasone-salmeterol (ADVAIR DISKUS) 250-50 mcg/dose inhaler Inhale 1 Puff as instructed twice daily. RINSE AND GARGLE MOUTH WITH WATER AFTER EACH USE. guaiFENesin (MUCINEX) 600 mg 12 hr tablet Take 1 tablet by mouth twice daily. benzonatate (TESSALON PERLES) 100 mg capsule Take 1 capsule by mouth three times daily as needed. levothyroxine (SYNTHROID) 100 mcg tablet Take 1 tablet by mouth once daily. albuterol HFA (PROAIR HFA) 90 mcg/actuation inhaler Inhale 2 Puffs as instructed every 4 hours as needed for wheezing/shortness of breath. cycloSPORINE 0.05 % ophthalmic emulsion Use 1 Drop in both eyes twice daily. Cholecalciferol, Vitamin D3, 2,000 unit ORAL Cap Take one(1) tablet daily. psyllium (METAMUCIL SMOOTH TEXTURE) 28 % ORAL Pack Take as directed. No current facility-administered medications for this visit. ALLERGIES Allergen Reactions Cats Dogs Dust Mites Environmental [Othe* Grass Pollen Unknown House Dust Mite Unknown Mold Unknown FAMILY HISTORY Problem Relation Age of Onset Cancer Father prostate Parkinson?s Disease Mother Diagnosised in her 80's Social History Tobacco Use Smoking status: Never Smokeless tobacco: Never Substance Use Topics Alcohol use: Yes Comment: glass of wine 2 times weekly Drug use: No Review of Systems Objective BP 142/82 Pulse 80 Ht 161 cm (5' 3.39 ) Wt 78 kg (172 lb) BMI 30.10 kg/m? Last 5 Encounter Wt Readings: Date: Wt: 09/28/2022 78 kg (172 lb) 09/25/2021 78.9 kg (174 lb) 06/14/2019 79.4 kg (175 lb) 05/28/2019 80.4 kg (177 lb 3.2 oz) 04/19/2019 79.4 kg (175 lb) No waist measurement recorded Estimated body mass index is 30.1 kg/m? as calculated from the following: Height as of this encounter: 161 cm (5' 3.39 ). Weight as of this encounter: 78 kg (172 lb). Last 5 Encounter BP Readings: Date: BP: 09/28/2022 142/82 09/25/2021 123/67 06/14/2019 128/70 05/28/2019 141/80 04/19/2019 152/86 Physical Exam Vitals reviewed. Constitutional: Appearance: She is well-developed. HENT: Head: Normocephalic and atraumatic. Right Ear: External ear normal. Left Ear: External ear normal. Nose: Nose normal. Eyes: Conjunctiva/sclera: Conjunctivae normal. Neck: Thyroid: No thyromegaly. Cardiovascular: Rate and Rhythm: Normal rate and regular rhythm. Pulses: Normal pulses. Heart sounds: Normal heart sounds. No murmur heard. No friction rub. No gallop. Pulmonary: Effort: Pulmonary effort is normal. Breath sounds: Normal breath sounds. Abdominal: General: Bowel sounds are normal. There is no distension. Palpations: Abdomen is soft. There is no mass. Tenderness: There is no abdominal tenderness. Musculoskeletal: General: No deformity. Normal range of motion. Comments: left knee brace on (torn meniscus) Lymphadenopathy: Cervical: No cervical adenopathy. Skin: General: Skin is warm and dry. Coloration: Skin is not jaundiced or pale. Findings: No rash. Neurological: General: No focal deficit present. Mental Status: She is alert and oriented to person, place, and time. Cranial Nerves: No cranial nerve deficit. Sensory: No sensory deficit. Motor: No abnormal muscle tone. Coordination: Coordination normal. Deep Tendon Reflexes: Reflexes normal. Psychiatric: Mood and Affect: Mood normal. Behavior: Behavior normal. Thought Content: Thought content normal. Judgment: Judgment normal. Component Latest Ref Rng AND Units 05/08/2019 09/22/2021 09/22/2022 WBC 3.70 - 11.00 k/uL 7.44 7.22 7.85 RBC 3.90 - 5.20 m/uL 4.81 4.80 4.75 Hemoglobin 11.5 - 15.5 g/dL 14.3 14.4 13.9 Hematocrit 36.0 - 46.0 % 45.7 44.0 43.6 MCV 80.0 - 100.0 fL 95.0 91.7 91.8 MCH 26.0 - 34.0 p (more content not included)... [facility] 08-12-2022 Miscellaneous Notes Patient reports [facility] never received mammogram order. Refaxed as requested. Faviola Matson RN Filed order Fax order as requested Patient calls and is asking about the status of mammogram order? Please fax to [phone]. Please review and advise, Bria Walekr RN Patient calling for order for annual mammogram. She would like order faxed to [facility]. Pended with FRANCINE for [facility]. Natali Thomas RN documented in this encounter [facility] Evaluation + Plan note Future Appointments Appointment Date:05/04/2023 03:40:00 PM Scheduled Provider:Slava PEDRO DO Location:[facility] 620 Appointment Type:GS OV Post Op [facility] documented in this encounter [facility] note* Diagnosis COVID-19 virus infection- Primary documented in this encounter [facility] note* Diagnosis Nausea- Primary Nausea alone Malaise Other malaise and fatigue Fever, unspecified Fever, unspecified Localized swelling, mass and lump, neck Swelling, mass, or lump in head and neck documented in this encounter [facility] note* Diagnosis Leukocytosis, unspecified type- Primary Thrombocytosis Essential thrombocythemia Abnormal finding of blood chemistry, unspecified documented in this encounter [facility] note* Diagnosis Fever, unspecified fever cause- Primary Acquired hypothyroidism Unspecified hypothyroidism Encounter for screening for osteoporosis Special screening for osteoporosis Asymptomatic postmenopausal status Stage 3 chronic kidney disease, unspecified whether stage 3a or 3b CKD (HCC) Leukocytosis, unspecified type Thrombocytosis Essential thrombocythemia Nausea Nausea alone Localized swelling, mass and lump, neck Swelling, mass, or lump in head and neck Elevated alkaline phosphatase level Other nonspecific abnormal serum enzyme levels LUQ abdominal pain Abdominal pain, left upper quadrant Vitamin D deficiency, unspecified Asymptomatic menopausal state Asymptomatic postmenopausal status (age-related) (natural) documented in this encounter [facility] note* Diagnosis Abnormal finding on radiology exam- Primary Pelvic mass in female Rectovaginal fistula Digestive-genital tract fistula, female Ovarian cancer, bilateral (HCC)- Primary Intra-abdominal and pelvic swelling, mass and lump, unspecified site Fistula of vagina to large intestine documented in this encounter [facility] note* Diagnosis Abnormal finding on radiology exam- Primary Abnormal finding on radiology exam Intra-abdominal and pelvic swelling, mass and lump, unspecified site Fistula of vagina to large intestine Postoperative pain Other acute postoperative pain documented in this encounter [facility] note* Diagnosis Post-operative state- Primary Other postprocedural status documented in this encounter [facility] note* Diagnosis Acquired hypothyroidism Unspecified hypothyroidism documented in this encounter [facility] note* Diagnosis Hypercholesteremia Pure hypercholesterolemia documented in this encounter [facility] note* Diagnosis Elevated alkaline phosphatase level Other nonspecific abnormal serum enzyme levels Asymptomatic menopausal state Asymptomatic postmenopausal status (age-related) (natural) documented in this encounter [facility] note* Diagnosis Localized swelling, mass and lump, neck Swelling, mass, or lump in head and neck documented in this encounter [facility] note* Diagnosis Nausea Nausea alone LUQ abdominal pain Abdominal pain, left upper quadrant documented in this encounter [facility] course Narrative No data available for this section [facility] Discharge instructions No data available for this section [facility] Progress note No data available for this section [facility] Reason for referral (narrative)* Diagnostic Procedure Only (Routine) - Pending Review Specialty Diagnoses / Procedures Referred By Contmarito t Referred To Contact [facility] Diagnoses Encounter for screening mammogram for breast cancer Procedures KELLY SCREENING W FRANCINE SCREENING DIGITAL BREAST TOMOSYNTHESIS BI SCREENING MAMMOGRAPHY BI 2-VIEW BREAST INC CAD Jonathan Vanegas MD [address] [place] [address] [facility] [address] [facility] [place] [place] [address] Referral ID Status Reason Start Date Expiration Date Visits Requested Visits Authorized [id number] Pending Review Auto-Generat ed Referral 08/11/2022 08/28/2023 1 1 [facility] for referral (narrative)* Diagnostic Procedure Only (Routine) - Authorized Specialty Diagnoses / Procedures Referred By Contac t Referred To Contact [facility] Diagnoses Localized swelling, mass and lump, neck Procedures US HEAD/NECK SOFT TISSUE OTHER US SOFT TISSUE HEAD & NECK REAL TIME IMGE Jolie Bhandari APRN.QA INTERN [address] [place] [address] [facility] Referral ID Status Reason Start Date Expiration Date Visits Requested Visits Authorized [id number] Authorized Auto-Generat ed Referral 03/29/2023 04/27/2024 1 1 [facility] for referral (narrative)* Diagnostic Procedure Only (Routine) - Closed Specialty Diagnoses / Procedures Referred By Contac t Referred To Contact [facility] Diagnoses Localized swelling, mass and lump, neck Procedures US HEAD/NECK SOFT TISSUE OTHER US SOFT TISSUE HEAD & NECK REAL TIME IMGE Jolie Bhandari APRN.QA INTERN [address] [place] [address] [place] [address] Referral ID Status Reason Start Date Expiration Date V isits Requested Visits Authorized [id number] Closed Auto-Generate d Referral 03/29/2023 04/27/2024 1 1 [facility] for visit Narrative* Diagnostic Procedure Only (Routine) - Closed Specialty Diagnoses / Procedures Referred By Contac t Referred To Contact [facility] Diagnoses Localized swelling, mass and lump, neck Procedures US HEAD/NECK SOFT TISSUE OTHER US SOFT TISSUE HEAD & NECK REAL TIME IMGE Jolie Bhandari APRN.QA INTERN [address] [place] [address] [place] [address] Referral ID Status Reason Start Date Expiration Date V isits Requested Visits Authorized [id number] Closed Auto-Generate d Referral 03/29/2023 04/27/2024 1 1 [facility] Summary Purpose Family History No Family History Records FoundNo Family History Records FoundNo Family History Records FoundNo Family History Records FoundNo Family History Records Found Advance Directives No Advanced Directives Records FoundLatest Code Status on File Code Status Date Activated Date Inactivated Comments Full Code 05/11/2023 9:26 AM 05/16/2023 7:36 PM Latest Code Status on File Code Status Date Activated Date Inactivated Comments Full Code 05/11/2023 9:26 AM 05/16/2023 7:36 PM Reason for Referral Specialty Diagnoses / Procedures Referred By Contac t Referred To Contact CT IMAGING Diagnoses Nausea LUQ abdominal pain Procedures CT ABD/PEL WO IVCON CT ABD & PELVIS W/O CONTRAST Jolie Tang APRN.CNS [address] [place] [address] Ct Imaging Referral ID Status Reason Start Date Expiration Date Visits Requested Visits Authorized [id number] Authorized Auto-Generat ed Referral 04/04/2023 05/03/2024 1 1 Specialty Diagnoses / Procedures Referred By Contac t Referred To Contact Jonathan Vanegas MD [address] [place] [address] Referral ID Status Reason Start Date Expiration Date Visits Re quested Visits Authorized [id number] Denied 1 1 Specialty Diagnoses / Procedures Referred By Contac t Referred To Contact CT IMAGING Diagnoses Nausea LUQ abdominal pain Procedures CT ABD/PEL WO IVCON CT ABD & PELVIS W/O CONTRAST Jolie Tang, DRY PRESS OPERATOR HELPER.QA INTERN [address] [place] [address] [place] [id number] Referral ID Status Reason Start Date Expiration Date V isits Requested Visits Authorized [id number] Closed Auto-Generate d Referral 04/04/2023 05/03/2024 1 1 Additional Source Comments INFORMATION SOURCE (unrecogn ized section and content) DATE CREATED AUTHOR AUTHOR'S ORGANIZ ATION 05/16/2018 [facility] DATE CREATED AUTHOR AUTHOR'S ORGANIZ ATION 05/17/2023 [facility] ([place]) DATE CREATED AUTHOR AUTHOR'S ORGANIZ ATION 05/20/2023 [facility] DATE CREATED AUTHOR AUTHOR'S ORGANIZ ATION 11/20/2023 [facility] Source Comments (unrecognize d section and content) In the event this informatio n is protected by the Federal Confidentiality of Alcohol and Drug Abuse Patient Records regulations: The Federal rules restrict any use of the information to criminally investigate or prosecute any alcohol or drug abuse patient.[facility] the event this information is protected by the Federal Confidentiality of Alcohol and Drug Abuse Patient Records regulations: The Federal rules restrict any use of the information to criminally investigate or prosecute any alcohol or drug abuse patient.[facility] the event this information is protected by the Federal Confidentiality of Alcohol and Drug Abuse Patient Records regulations: The Federal rules restrict any use of the information to criminally investigate or prosecute any alcohol or drug abuse patient.[facility] the event this information is protected by the Federal Confidentiality of Alcohol and Drug Abuse Patient Records regulations: The Federal rules restrict any use of the information to criminally investigate or prosecute any alcohol or drug abuse patient.[facility] the event this information is protected by the Federal Confidentiality of Alcohol and Drug Abuse Patient Records regulations: The Federal rules restrict any use of the information to criminally investigate or prosecute any alcohol or drug abuse patient.[facility] the event this information is protected by the Federal Confidentiality of Alcohol and Drug Abuse Patient Records regulations: The Federal rules restrict any use of the information to criminally investigate or prosecute any alcohol or drug abuse patient.[facility] the event this information is protected by the Federal Confidentiality of Alcohol and Drug Abuse Patient Records regulations: The Federal rules restrict any use of the information to criminally investigate or prosecute any alcohol or drug abuse patient.[facility] the event this information is protected by the Federal Confidentiality of Alcohol and Drug Abuse Patient Records regulations: The Federal rules restrict any use of the information to criminally investigate or prosecute any alcohol or drug abuse patient.[facility] the event this information is protected by the Federal Confidentiality of Alcohol and Drug Abuse Patient Records regulations: The Federal rules restrict any use of the information to criminally investigate or prosecute any alcohol or drug abuse patient.[facility] the event this information is protected by the Federal Confidentiality of Alcohol and Drug Abuse Patient Records regulations: The Federal rules restrict any use of the information to criminally investigate or prosecute any alcohol or drug abuse patient.[facility] the event this information is protected by the Federal Confidentiality of Alcohol and Drug Abuse Patient Records regulations: The Federal rules restrict any use of the information to criminally investigate or prosecute any alcohol or drug abuse patient.[facility] Hospital[facility] the event this information is protected by the Federal Confidentiality of Alcohol and Drug Abuse Patient Records regulations: The Federal rules restrict any use of the information to criminally investigate or prosecute any alcohol or drug abuse patient.[facility] the event this information is protected by the Federal Confidentiality of Alcohol and Drug Abuse Patient Records regulations: The Federal rules restrict any use of the information to criminally investigate or prosecute any alcohol or drug abuse patient.[facility] Hospital[facility] the event this information is protected by the Federal Confidentiality of Alcohol and Drug Abuse Patient Records regulations: The Federal rules restrict any use of the information to criminally investigate or prosecute any alcohol or drug abuse patient.[facility] Hospital[facility] the event this information is protected by the Federal Confidentiality of Alcohol and Drug Abuse Patient Records regulations: The Federal rules restrict any use of the information to criminally investigate or prosecute any alcohol or drug abuse patient.[facility] Hospital[facility] the event this information is protected by the Federal Confidentiality of Alcohol and Drug Abuse Patient Records regulations: The Federal rules restrict any use of the information to criminally investigate or prosecute any alcohol or drug abuse patient.[facility] Reason for Visit (unrecogniz ed section and content) Specialty Diagnoses / Procedures Referred By Contac t Referred To Contact CT IMAGING Diagnoses Nausea LUQ abdominal pain Procedures CT ABD/PEL WO IVCON CT ABD & PELVIS W/O CONTRAST Jolie Tang, DRY PRESS OPERATOR HELPER.QA INTERN [address] [place] [address] [place] [address] Referral ID Status Reason Start Date Expiration Date V isits Requested Visits Authorized [id number] Closed Auto-Generate d Referral 04/04/2023 05/03/2024 1 1 Reason Comments Mammogram order Reason Comments Viral Syndrome Reason Comments + covid home test 10/09/22 Reason Comments Fever Reason Comments Results Orders Reason Comments Follow Up Reason Comments Consult Abdominal mass Specialty Diagnoses / Procedures Referred By Contac t Referred To Contact Diagnoses Intra-abdominal and pelvic swelling, mass and lump, unspecified site Fistula of vagina to large intestine Intra-abdominal and pelvic swelling, mass and lump, unspecified site [R19.00] 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 [facility], [address] [place] [address] [facility] [address] [place] [address] [place] [address] Referral ID Status Reason Start Date Expiration Date Visits Re quested Visits Authorized [id number] 1 Reason Onset Date Comments Refill Request 05/18/2023 Medication Problem 05/18/2023 Reason Comments [facility] start of services Reason Comments Post-op Visit Reason Onset Date Comments Refill Request 05/23/2023 Care Teams (unrecognized sec tion and content) Condominium Manager Relationship Specialty Start Date End Date Jonathan Vanegas MD [address] [place], [place] [id number] PCP - General 05/12/01 Condominium Manager Relationship Specialty Start Date End Date Jonathan Vanegas MD [address] [place] [address] PCP - General 05/12/01 Condominium Manager Relationship Specialty Start Date End Date Jonathan Vanegas MD [address] [place] [address] PCP - General 05/12/01 Condominium Manager Relationship Specialty Start Date End Date Jonathan Vanegas MD [address] [place] [address] PCP - General 05/12/01 Condominium Manager Relationship Specialty Start Date End Date Jonathan Vanegas MD [address] [place] [address] PCP - General 05/12/01 Condominium Manager Relationship Specialty Start Date End Date Jonathan Vanegas MD [address] [place] [address] PCP - General 05/12/01 Condominium Manager Relationship Specialty Start Date End Date Bonifacio Higgins MD [address] [place] [address], [address] [place] [address] Consulting Physician Gynecologic Oncology 05/06/23 Condominium Manager Relationship Specialty Start Date End Date Bonifacio Higgins MD [address] [facility], [address] [place] [address] Consulting Physician Gynecologic Oncology 05/06/23 Condominium Manager Relationship Specialty Start Date End Date Bonifacio Higgins MD [address] [facility], [address] [place] [address] Consulting Physician Gynecologic Oncology 05/06/23 Condominium Manager Relationship Specialty Start Date End Date Jonathan Vanegas MD [address] [place] [address] PCP - General 05/12/01 Condominium Manager Relationship Specialty Start Date End Date Jonathan Vanegas MD [address] [place] [address] PCP - General 05/12/01 Condominium Manager Relationship Specialty Start Date End Date Jonathan Vanegas MD [address] [place] [address] PCP - General 05/12/01 Condominium Manager Relationship Specialty Start Date End Date Bonifacoi Higgins MD [address] [place] [address], [address] [place], [place] [id number] Consulting Physician Gynecologic Oncology 05/06/23 Condominium Manager Relationship Specialty Start Date End Date Jonathan Vanegas MD [address] [place] [address] PCP - General 05/12/01 Condominium Manager Relationship Specialty Start Date End Date Jonathan Vanegas MD [address] [place] [address] PCP - General 05/12/01 Condominium Manager Relationship Specialty Start Date End Date Bonifacio Higgins MD [address] [place] [address], [address] [place], [place] [phone] Consulting Physician Gynecologic Oncology 05/06/23 Condominium Manager Relationship Specialty Start Date End Date Jonathan Vanegas MD [address] [place] [address] PCP - General 05/12/01 Condominium Manager Relationship Specialty [place] [address] [place] [address] PCP - General 05/12/01 Condominium Manager Relationship Specialty Start Date End Date Jonathan Vanegas MD [address] [place] [address] PCP - General 05/12/01 Condominium Manager Relationship Specialty Start Date End Date Jonathan Vanegas MD [address] [place] [address] PCP - General 05/12/01 Scheduled Active and Recently Administ ered Medications (unrecognized section and content) Continuous Medication Order 05/14/2023 05/15/2023 05/16/2023 lactated Ringer's infusion 75 mL/hr, IntraVENous, Continuous, Starting on 05/14/23 at 2130 2214 (New Bag - Provider: Francine Duffy, HOMAR) 1116 (New Bag - Provider: Meaghan Lamas, HOMAR) PRN Medication Order 05/14/2023 05/15/2023 05/16/2023 albuterol 108 (90 Base) MCG/ACT inhaler 2 puff 2 puff, Inhalation, Every 4 hours PRN, wheezing, Starting on Tue05/11/23 at 1224 heparin flush injection 100 Units 100 Units, IntraCATHeter, PRN, line care, Starting on Kat 05/12/23 at 0532 hydrALAZINE (Apresoline) injection 5 mg 5 mg, IntraVENous, Every 4 hours PRN, high blood pressure, SBP>160, DBP >110, Starting on 05/15/23 at 1322, Recheck blood pressure 20 minutes after administration. Notify physician of blood pressure. iopamidol (Isovue-370) 76 % injection 75 mL (COMPLETED) 75 mL, IntraVENous, IMG once PRN, contrast, Starting on 05/15/23 at 0101, For 1 dose 0101 (Given - Provider: Emmanuel Steven) ondansetron (Zofran) injection 4 mg(Linked Group 1) 4 mg, IntraVENous, Every 6 hours PRN, nausea, vomiting, Starting on Tue05/11/23 at 1231, Phase II/On Unit, 1st Line. Give IV if patient is unable to take orally. If inadequate response within 60 minutes, proceed to next-line agent or contact provider if no further options ordered. 0739 (See Alternative - Provider: Leesa Downey RN)2036 (Given - Provider: Francine Duffy, RN) ondansetron ODT (Zofran-ODT) disintegrating tablet 4 mg(Linked Group 1) 4 mg, Oral, Every 8 hours PRN, nausea, vomiting, Starting on Tue05/11/23 at 1231, Phase II/On Unit, 1st Line. If inadequate response within 60 minutes, proceed to next-line agent or contact provider if no further options ordered. Patient should allow tablet to dissolve on tongue. Do not remove from blister pack until just before administering. 0739 (Given - Provider: Leesa Downey, HOMAR)2036 (See Alternative - Provider: Francine Duffy, RN) oxyCODONE (Roxicodone) immediate release tablet 10 mg(Linked Group 2) 10 mg, Oral, Every 4 hours PRN, severe pain (7-10), Starting on Tue05/11/23 at 1231, Phase II/On Unit 0709 (See Alternative - Provider: Leesa Downey RN)1427 (Given - Provider: Anjana Justin RN)2045 (Given - Provider: Francine Duffy RN) 1025 (See Alternative - Provider: Anjana Justin RN)204 (Given - Provider: Tameka Tuttle RN) 0620 (See Alternative - Provider: Tameka Tuttle RN)1115 (See Alternative - Provider: Meaghan Lamas, RN)1526 (Given - Provider: Meaghan Lamas, RN) oxyCODONE (Roxicodone) immediate release tablet 5 mg(Linked Group 2) 5 mg, Oral, Every 4 hours PRN, moderate pain (4-6), Starting on Tue05/11/23 at 1231, Phase II/On Unit 0709 (Given - Provider: Leesa Downey RN)1427 (See Alternative - Provider: Anjana Justin RN)204 (See Alternative - Provider: Francine Duffy RN) 1025 (Given - Provider: Anjana Justin RN - Comment: scanner not working)2045 (See Alternative - Provider: Tameka Tuttle RN) 0620 (Given - Provider: Tameka Tuttle RN)1115 (Given - Provider: Meaghan Lamas, HOMAR)1526 (See Alternative - Provider: Meaghan Lamas, RN) polyethylene glycol (PEG) 3350 (Miralax) packet 17 g (CANCELED) 17 g, Oral, Daily PRN, constipation, Starting on 05/14/23 at 0230, Phase II/On Unit, 1st line for treatment of constipation - give scheduled if no bowel movement in past 24 hours. 1924 (Given - Provider: Anjana Justin RN) polyvinyl alcohol (Liquifilm Tears) 1.4 % ophthalmic solution 1 drop 1 drop, Both Eyes, 2 times daily PRN, dry eyes, Starting on 05/13/23 at 1010, Substituted for cycloSPORINE (RESTASIS). simethicone (Mylicon) chewable tablet 80 mg 80 mg, Oral, PRN, flatulence, Starting on Kat 05/12/23 at 0533, not to exceed a maximum daily dose of 500 mg/day sodium chloride 0.9 % infusion 5-250 mL/hr, IntraVENous, PRN, if patient receiving piggyback infusions and maintenance fluids are not ordered OR KVO fluids to protect IV site / prevent frequent line interruptions/ long duration, Starting on 05/11/23 at 1231, Phase II/On Unit, For piggyback infusion, administer at same rate as piggyback for a total of 25 mL. Enter 25 mL into dose field and piggyback rate into rate field of order. If piggyback is infusing at a rate less than 100 mL/hr, enter 25 mL into dose field and 100 mL/hr into rate field of order. For KVO fluids, enter rate of 20 mL/hr or less into rate field of order. sodium chloride 0.9% (NS) flush 10 mL 10 mL, IntraVENous, PRN, line care, Starting on 05/11/23 at 1231, Phase II/On Unit, After every IV line use Linked Groups Order Group 1: ondansetron ODT (Zofran-ODT) disintegrating tablet 4 mgJump to med 4 mg, Oral, Every 8 hours PRN, nausea, vomiting, Starting on Tue05/11/23 at 1231, Phase II/On Unit
1st Line. If inadequate response within 60 minutes, proceed to next-line agent or contact provider if no further options ordered. Patient should allow tablet to dissolve on tongue. Do not remove from blister pack until just before administering.
Or ondansetron (Zofran) injection 4 mgJump to med 4 mg, IntraVENous, Every 6 hours PRN, nausea, vomiting, Starting on Tue05/11/23 at 1231, Phase II/On Unit
1st Line. Give IV if patient is unable to take orally. If inadequate response within 60 minutes, proceed to next-line agent or contact provider if no further options ordered.
Group 2: oxyCODONE (Roxicodone) immediate release tablet 5 mgJump to med 5 mg, Oral, Every 4 hours PRN, moderate pain (4-6), Starting on Tue05/11/23 at 1231, Phase II/On Unit Or oxyCODONE (Roxicodone) immediate release tablet 10 mgJump to med 10 mg, Oral, Every 4 hours PRN, severe pain (7-10), Starting on Tue05/11/23 at 1231, Phase II/On Unit FOR RECORDS PERTAINING TO PATIENTS WHO ARE OR HAVE BEEN ENROLLED IN A CHEMICAL DEPENDENCY/SUBSTANCEABUSE PROGRAM, SOME INFORMATION MAY BE OMITTED. This clinical summary was aggregated from multiple sources. Caution should be exercised in using it in the provision of clinical care. This summary normalizes information from multiple sources, and as a consequence, information in this document may materially change the coding, format and clinical context of patient data. In addition, data may be omitted in some cases. CLINICAL DECISIONS SHOULD BE BASED ON THE PRIMARY CLINICAL RECORDS. [employer] provides no warranty or guarantee of the accuracy or completeness of information in this document.
[2023-11-24] MEDS: 0.9 % NaCl (Sterile) Posiflush 10 mL IV (07:40)
== END | disposition home or self-care (01) ==
LOC: CT 07:14
PROVIDERS: PCP Internal Medicine; Referring Provider Internal Medicine Medical Oncology; Visit Provider Internal Medicine Medical Oncology
DX: C56.2 Malignant neoplasm of left ovary (principal); C77.2 Secondary and unspecified malignant neoplasm of intra-abdominal lymph nodes
CPT/HCPCS: 70491; 71260; 74177; Q9967

== ENCOUNTER → 2024-03-01 | Outpatient (CLI) | payer MEDICARE, BC, SELFPAY ==
--- NOTE | 2024-03-01 09:34 | ECHODONC_ITS ---
Reason For Study: ANTINEOPLASTIC CHEMO Procedure This was a 2D Doppler, Color Flow transthoracic echocardiogram. Exam performed in department. Left Ventricle Normal LV size. Mild concentric left ventricular hypertrophy. Left ventricular systolic function is normal. Stage 1 diastolic dysfunction. The left ventricular ejection fraction is 60 %. No regional wall motion abnormalities noted. Right Ventricle Normal RV size. Normal systolic function. Atria Normal left atrium. Normal right atrium. Mitral Valve Normal mitral valve. Tricuspid Valve Normal tricuspid valve. Aortic Valve Trisinus/trileaflet aortic valve. Pulmonic Valve Normal pulmonic valve. Great Vessels Normal aortic root. The pulmonary artery is normal size. Inferior vena cava collapse with respiration. Pericardium/Pleural No pericardial effusion. MMode/2D Measurements & Calculations LVIDd: 3.3 cm IVSd: 1.2 cm Ao root diam: 3.2 cm LVIDs: 2.0 cm LVPWd: 1.3 cm FS: 37.5 % LAV(MOD-bp): 32.5 ml LVAd ap4: 18.3 cm2 SV(MOD-sp4): 24.9 ml LAV(MOD-bp) Indexed: 19.1 ml/m2 LVLd ap4: 6.4 cm LAV(MOD-sp2): 46.8 ml EDV(MOD-sp4): 42.3 ml LAV(MOD-sp4): 21.7 ml EDV(sp4-el): 44.3 ml LVAs ap4: 10.3 cm2 LVLs ap4: 5.1 cm ESV(MOD-sp4): 17.4 ml ESV(sp4-el): 17.5 ml EF(MOD-sp4): 58.9 % EF(sp4-el): 60.5 % SV(sp4-el): 26.8 ml LA A4 area: 11.8 cm2 LA dimension(2D): 2.9 cm RA A4 area: 8.8 cm2 Time Measurements MV dec time: 0.08 sec Doppler Measurements & Calculations MV E max uche: 46.7 cm/sec Lat Peak E' Uche: 5.1 cm/sec Med Peak E' Uche: 8.1 cm/sec MV A max uche: 72.2 cm/sec E/E' lat: 9.1 E/E' med: 5.8 MV E/A: 0.65 MV V2 max: 88.3 cm/sec Ao V2 max: 132.3 cm/sec MV max P.1 mmHg MV dec slope: 557.0 cm/sec2 Ao max P.0 mmHg MV V2 mean: 54.2 cm/sec Ao V2 mean: 88.8 cm/sec MV mean P.3 mmHg Ao mean P.7 mmHg MV V2 VTI: 23.0 cm Ao V2 VTI: 24.8 cm AV (velocity ratio): 0.83 LV V1 max: 126.2 cm/sec LV V1 max P.4 mmHg LV V1 mean P.7 mmHg LV V1 mean: 90.6 cm/sec LV V1 VTI: 20.7 cm ECHO/ONC Echo Complete Interpretation Summary Normal LV size. Left ventricular systolic function is normal. Stage 1 diastolic dysfunction. Mild concentric left ventricular hypertrophy. The left ventricular ejection fraction is 60 %. Ordering Physician: Perfecto Heath Referring Physician: Perfecto Heath Performed By: Brandy Sanabria RCS
== END | disposition home or self-care (01) ==
LOC: CVS 09:34
PROVIDERS: PCP Internal Medicine; Referring Provider Internal Medicine Medical Oncology; Visit Provider Internal Medicine Medical Oncology
DX: Z51.11 Encounter for antineoplastic chemotherapy (principal); C56.2 Malignant neoplasm of left ovary; Z79.899 Other long term (current) drug therapy
CPT/HCPCS: 93306; 93356

== ENCOUNTER → 2024-04-26 | Outpatient (CLI) | payer MEDICARE, BC, SELFPAY ==
--- NOTE | 2024-04-26 13:06 | CT_ITS ---
STUDY: CT ABDOMEN AND PELVIS WITH CONTRAST REASON FOR EXAM: Female, 83 years old. ASSESS TREATMENT RESPONSE-OVARIAN CA RADIATION DOSAGE (If Supplied By Facility): CTDIvol = ( 12.23 ) mGy, DLP = ( 747.14 ) mGycm TECHNIQUE: Transaxial images were obtained from the dome of the diaphragm to the symphysis pubis without oral contrast. IV 100mL Isovue-300 was administered. Sagittal and coronal images were reconstructed. 3-D images were reconstructed. Individualized dose optimization techniques were used for this CT. COMPARISON: Comparison is made with prior study dated October 23, 2023. FINDINGS: The visualized lung bases are unremarkable. The visualized portions of the heart are within normal limits. Normal liver. The gallbladder is contracted. Normal spleen. Normal pancreas. Normal bilateral adrenal glands. Normal right kidney. Normal left kidney. Normal visualized stomach. Normal small intestine. Is evidence of anastomosis in the sigmoid colon. There is non-visualization of the appendix. Normal abdominal aorta. Normal inferior vena cava. There now is evidence of enlarged lymph nodes in the root of the mesenteric fat. Retroperitoneal lymph nodes. Bladder wall thickening. There is a 6 cm x 6 cm x 3.5 cm heterogeneous mass in the pelvis. A neoplastic process should be ruled out. This extends anteriorly abutting the superior anterior aspect of the urinary bladder. There is bladder wall thickening. There is absence of the uterus consistent with a prior hysterectomy. Normal abdominal wall. There are degenerative changes of the visualized lumbar spine. Heterogeneous appearance of the L1 vertebra suggestive of a hemangioma. Heterogeneous appearance of the L3 vertebrae. Correlation with the bone scan is recommended. CT/Abdomen/Pelvis WITH Contrast IMPRESSION: Enlarged retroperitoneal lymph nodes as well as lymph nodes within the root of the mesentery. There is a new 6 cm x 6 cm x 3.5 cm heterogeneous mass in the pelvis abutting the bladder with thickened bladder wall especially superiorly and anteriorly. The patient is status post hysterectomy. Electronically Signed: Chauncey Robertson MD at 13:33 EDT ,
[2024-04-26] MEDS: 0.9% Saline Lock 10 ML Syringe IV (13:16)
== END | disposition home or self-care (01) ==
LOC: CT 12:42
PROVIDERS: PCP Internal Medicine; Referring Provider Internal Medicine Medical Oncology; Visit Provider Internal Medicine Medical Oncology
DX: C56.2 Malignant neoplasm of left ovary (principal); C77.2 Secondary and unspecified malignant neoplasm of intra-abdominal lymph nodes
CPT/HCPCS: 74177; Q9967; A4216

== ENCOUNTER → 2024-05-16 | Outpatient (CLI) | payer MEDICARE, BC, SELFPAY ==
--- NOTE | 2024-05-16 11:05 | VDLE_ITS ---
Reason For Study: Right leg swelling RIGHT LEFT GSV is normal. CFV is compressible, spontaneous, phasic, CFV is compressible, spontaneous, phasic, competent, and demonstrates normal competent and demonstrates normal augmentation. augmentation. FV is compressible, spontaneous, phasic, competent and demonstrates normal augmentation. POP V is compressible, spontaneous, phasic, competent and demonstrates normal augmentation. T/P Trunk is compressible. PTV is compressible. RT PerV is compressible. Multiple lymph node noted in the right groin with the largest measuring 2.08x 0.82 cm. Procedure This is a venous duplex using B-mode, color flow and spectral Doppler. Exam performed in department. A preliminary report was called and/or faxed to [facility]. VL/Venous Duplex US, Unilateral Interpretation Summary There is no evidence of right lower extremity deep vein thrombosis. Right great saphenous vein appears patent and compressible segmentally. Right groin adenopathy 2.08 x 0.82 cm and 1.05 x 0.75 cm diameter and 0.63 x 1.22 cm diameter Normal flow patterns left common femoral vein Ordering Physician: Sandra Koo Referring Physician: Vi Pelayo Performed By: Meaghan Chance RVT
== END | disposition home or self-care (01) ==
LOC: CVS 11:04
PROVIDERS: PCP Internal Medicine; Referring Provider Nurse Practitioner Family; Visit Provider Nurse Practitioner Family
DX: M79.89 Other specified soft tissue disorders (principal)
CPT/HCPCS: 93971

== ENCOUNTER → 2024-06-13 | Outpatient (CLI) | payer MEDICARE, BC, SELFPAY ==
--- NOTE | 2024-06-13 13:53 | CT_ITS ---
STUDY: CT CHEST, ABDOMEN T PELVIS WITH CONTRAST REASON FOR EXAM: Pulmonary emboli in branches of the lower lobe pulmonary arteries. Nonocclusive thrombus in the left renal vein., 83 years old. METASTATIC CANCER, IV CONTRAST ONLY. Restaging of ovarian carcinoma. RADIATION DOSAGE (If Supplied By Facility): CTDIvol = ( 11.03 ) mGy, DLP = ( 1261.66 ) mGycm TECHNIQUE: Transaxial imaging was performed following intravenous administration of IV 100mL Isovue-370. Individualized dose optimization techniques were used for this CT. COMPARISON: Comparison is made with prior CT thorax study dated November 24, 2023. Comparison is also made with prior CT scan the abdomen AprilApril 26 2024. FINDINGS: CHEST A right-sided portacatheter is seen with the tip in the superior vena cava. The lungs are normal. There is no demonstrated pleural abnormality. Normal heart and pericardium. No coronary artery calcification is seen. Normal mediastinum. Normal hilar regions. Filling defects are seen in branches of the right and left lower lobe pulmonary arterial branches in keeping with pulmonary emboli. Normal aorta arch and descending thoracic aorta. There are multi-level degenerative changes of the thoracic spine. ABDOMEN Normal liver. The gallbladder is contracted. There is a small amount of pericholecystic fluid. Normal spleen. Normal pancreas. Diffuse enlargement of the left adrenal gland. Normal right kidney. Normal left kidney. A filling defect is seen in the left renal vein. Normal visualized stomach. Surgical anastomosis seen in distal small bowel loops. Normal colon. There is non-visualization of the appendix. Normal abdominal aorta. Normal inferior vena cava. There is retroperitoneal lymphadenopathy with enlarged nodes greater than 10-15mm in the short axis. Lymph nodes are seen in the root of the mesentery. These have increased in size. Enlarged right inguinal lymph nodes. There are degenerative changes of the visualized lumbar spine. PELVIS Diffuse bladder wall thickening although the bladder is not completely distended at this time. Persistent 6.5 cm x 3.2 cm complex mass in the right-sided pelvis. The previously seen pelvic mass is decreased in size. This extends anteriorly and laterally in the pelvis prior hysterectomy.. Normal visualized pelvic arteries. CT/CT Chest, Abd, Pel w/Contrast IMPRESSION: Pulmonary emboli in branches of the lower lobe pulmonary arteries bilaterally. Nonocclusive thrombus seen in the left renal vein. Heterogeneous enlargement of the left adrenal gland. Enlarged lymph nodes in the retroperitoneum and root of the mesentery. Abnormal right inguinal lymph nodes. Contracted gallbladder with fluid in the pericholecystic space. Persistent complex cystic mass in the right-sided hemipelvis. The previously seen mass in the central portion pelvis as improved. Electronically Signed: Chauncey Robertson MD at 14:44 EDT ,
--- NOTE | 2024-06-13 13:53 | CT_ITS ---
STUDY: CT SOFT TISSUE NECK WITH CONTRAST REASON FOR EXAM: Female, 83 years old. METASTATIC CANCER -- IV CONTRAST ONLY RADIATION DOSAGE (If Supplied By Facility): CTDIvol = ( 11.03 ) mGy, DLP = ( 1261.66 ) mGycm TECHNIQUE: The patient was scanned in a multi-detector CT scanner. High resolution transaxial imaging was performed following intravenous administration of IV 100mL Isovue-370. Sagittal and coronal images were reconstructed. Individualized dose optimization techniques were used for this CT. COMPARISON: Comparison is made with prior study May 24, 2024. FINDINGS: A right-sided Port-A-Cath is seen with the tip in the superior vena cava. I suspect an intraluminal filling defect incomplete thrombus in the left subclavian vein as it enters the left brachiocephalic vein. Normal bilateral parotid glands. Normal bilateral heat regulator spaces. Normal bilateral parapharyngeal spaces. Normal bilateral carotid spaces. Normal bilateral sublingual and submandibular glands and spaces. Normal visualized nasopharynx. Normal retropharyngeal space. Normal perivertebral space. Normal visualized bilateral faucial tonsils. The visualized tongue, tongue base and oropharynx are normal. Heterogeneous enlargement of the left supraclavicular lymph nodes. The largest lymph node measures 2.2 cm x 1.7 cm. This is predominately cystic in nature. The lymphadenopathy has progressed as compared to prior study. Normal epiglottis, bilateral vallecula and hypopharynx. The pre-epiglottic and paraglottic adipose spaces are normal. Normal visualized bilateral piriform sinuses, aryepiglottic folds, vocal cords, and arytenoid-cricoid articulations. Normal subglottic trachea. Normal bilateral lobes of the thyroid gland. Normal visualized pulmonary apices. Normal visualized paranasal sinuses. There is degenerative changes of the cervical spine. CT/Soft Tissue Neck WITH Contrast IMPRESSION: Left supraclavicular adenopathy. Thrombus in the left subclavian vein. Electronically Signed: Chauncey Robertson MD at 14:51 EDT ,
== END | disposition home or self-care (01) ==
LOC: CT 13:53
PROVIDERS: PCP Internal Medicine; Referring Provider Internal Medicine Medical Oncology; Visit Provider Internal Medicine Medical Oncology
DX: C56.2 Malignant neoplasm of left ovary (principal); C77.2 Secondary and unspecified malignant neoplasm of intra-abdominal lymph nodes; C79.9 Secondary malignant neoplasm of unspecified site
CPT/HCPCS: 70491; 71260; 74177; Q9967; A4216